=== PATIENT | male | born 1935 | race Caucasian/White ===

== ENCOUNTER → 2017-06-22 10:35 | Emergency (ER) | payer MEDICARE ==
--- NOTE | 2017-06-22 12:02 | ED ---
Back Pain - HPI Summary HPI Summary: Patient presents to the ED with CC of bilateral lower rib pain and mid back pain x 2 months after falling into a hole. He states he landed on his feet, but his back and ribs hurt immediately following the accident. For 2 months, he has been taking tylenol without much relief of pain. Worse at night and while lying flat. He is unable to sleep d/t discomfort. Denies hitting his head, confusion or LOC following accident. Denies blood thinners. PMHx includes HTN and HLD. He takes medications for these but denies other medications. He notes to chronic back pain, but worse since the fall. He points out primary location of the discomfort and the area is with a significant deformity with protrusion. Denies numbness, tingling, bladder or bowel dysfunction. He walks with a cane at baseline. - History of Current Complaint Chief Complaint: EDChestWallPain Stated Complaint: RIB PAIN, Time Seen by Provider: 06/22/17 11:05 Hx Obtained From: Patient Onset/Duration: Sudden Onset Onset/Duration: Started Hours Ago, Traumatic - started 2 months ago s/p fall Timing: Constant Back Pain Location: Is Discrete @ - mid back and bilateral lower ribs - worse on the right Pain Intensity: 6 Character: Aching, Throbbing Aggravating Symptom(s): Movement, Lifting, Bending Alleviating Symptom(s): Rest Associated Signs And Symptoms: Positive: Negative - Risk Factors AAA Risk Factors: Negative TAD Risk Factors: Cauda Equina Risk Factors: Negative Epidural Abscess Risk Factors: Negative - Allergies/Home Medications Allergies/Adverse Reactions: Allergies Allergy/AdvReac Type Severity Reaction Status Date / Time No Known Allergies Allergy Verified 06/22/17 12:53 PMH/Surg Hx/FS Hx/Imm Hx Previously Healthy: Yes Musculoskeletal History: Denies: Hx Rheumatoid Arthritis, Hx Osteoporosis - Immunization History Hx Pertussis Vaccination: No Immunizations Up to Date: Unable to Obtain/Confirm Infectious Disease History: No Infectious Disease History: Denies: Traveled Outside the [place] in Last 30 Days - Social History Occupation: Unemployed Lives: With Family Alcohol Use: None Substance Use Type: Reports: None Hx Tobacco Use: Yes Smoking Status (MU): Former Smoker Review of Systems Constitutional: Negative Negative: Fever, Chills Eyes: Negative Cardiovascular: Negative Respiratory: Negative Gastrointestinal: Negative Negative: Abdominal Pain, Vomiting, Diarrhea, Nausea Genitourinary: Negative Positive: no symptoms reported, see HPI Positive: Arthralgia - bilateral rib pain and mid back pain with deformity Skin: Negative All Other Systems Reviewed And Are Negative: Yes Physical Exam Triage Information Reviewed: Yes Vital Signs On Initial Exam: Initial Vitals Temp Pulse Resp BP Pulse Ox 97.6 F 115 20 141/89 98 06/22/17 10:41 06/22/17 10:41 06/22/17 10:41 06/22/17 10:41 06/22/17 10:41 Vital Signs Reviewed: Yes Appearance: Positive: Well-Appearing, Well-Nourished Skin: Positive: Warm, Skin Color Reflects Adequate Perfusion Head/Face: Positive: Normal Head/Face Inspection Eyes: Positive: EOMI, RAFA, Conjunctiva Clear Neck: Positive: Supple, No Lymphadenopathy Respiratory/Lung Sounds: Positive: Clear to Auscultation, Breath Sounds Present Cardiovascular: Positive: Normal, RRR, Pulses are Symmetrical in both Upper and Lower Extremities Musculoskeletal: Positive: Pain @ - Dorsiflexion, great toe extension and plantar flexion intact. Good strength bilaterally in hips, knees, ankles. No pain on palpation over medial or lateral lower extremity. No pain with knee flexion. Pulses intact bilaterally. No temperature change or pallor noted bilaterally. Walks with a cane at baseline. Neurological: Positive: Speech Normal Psychiatric: Positive: Normal AVPU Assessment: Alert - [place] Coma Scale Coma Scale Total: 15 Diagnostics - Vital Signs Vital Signs Temp Pulse Resp BP Pulse Ox 06/22/17 11:27 98.5 F 100 16 156/82 97 06/22/17 10:41 97.6 F 115 20 141/89 98 - Laboratory Lab Statement: Any lab studies that have been ordered have been reviewed, and results considered in the medical decision making process. Back Pain Course/Dx - Course Course Of Treatment: Patient evaluated for mid back pain and bilateral rib pain 2 months s/p fall. Denies hitting his head or LOC. He is ambulating well with a cane - this is his baseline. NAD and denies any current pain. Pain worse with lying flat. Takes tylenol for relief. Amulating well, good ROM, strength in bilateral lower extremities good. Rotating at the hips with no pain, but slight limited ROM which could be his age and at baseline or d/t fall. IMPRESSION: NO ACUTE CT ABNORMALITIES THE BONY THORAX. LARGE HIATAL HERNIA. IMPRESSION: Scoliosis of the lower thoracic spine. No evidence of fracture. IMPRESSION: ADVANCED MULTILEVEL DEGENERATIVE DISC DISEASE/OSTEOARTHRITIS. SCOLIOSIS. NO ACUTE FINDINGS. Patient is encouraged to follow up with Dr. Piedra this week. It was explained to the patient and it is uncertain why he has been experiencing bilateral rib pain and back pain for 2 months and could likely be d/t fall or chronic changes. He will need to be further followed by his PCP for any changes or worsening symptoms. He is encouraged to take tylenol for relief of pain. - Diagnoses Differential Diagnosis/HQI/PQRI: Positive: Herniated Disc, Osteomyelitis Provider Diagnoses: Rib pain Images - Images Full Body (No Head): 1 - deformity Discharge - Discharge Plan Condition: Stable Disposition: HOME Patient Education Materials: Rib Contusion (ED) Referrals: Tadeo STILL,Arnulfo Rubio [Primary Care Provider] - Additional Instructions: Follow up with you PCP - all to make an appt today Tylenol for any discomfort
--- NOTE | 2017-06-22 12:36 | RAD ---
Indication: Fall, back injury. CT of the thoracic spine was obtained in the axial plane. Sagittal and coronal reconstructed images were obtained. The vertebral bodies appear normal in height. No evidence of compression fracture is noted. There is levoscoliosis centered at T11-T12. No fracture is noted. The transverse processes are grossly unremarkable with no evidence of fracture. The visualized ribs demonstrate no fracture. The spinous processes also demonstrates no fracture. IMPRESSION: Scoliosis of the lower thoracic spine. No evidence of fracture.
--- NOTE | 2017-06-22 12:40 | RAD ---
INDICATION: Fell 2 months ago. Back pain when lying down COMPARISON: None TECHNIQUE: Noncontrast axial source images was performed from the thoracolumbar junction to the sacrum. Coronal and and sagittal reformatted images were generated. FINDINGS: Vertebrae: There is no fracture or acute focal bony lesion. The examination is limited due to advanced osteoarthritic change, osteopenia, scoliotic deformity. Alignment: Moderate S type scoliotic deformity.. Central Canal: There are no significant CT abnormalities of the central canal or foramina. MR imaging is a more sensitive method to evaluate the canal and foramina. Intervertebral disc spaces: Vacuum disc phenomena throughout the lumbar spine. Multilevel facet overgrowth and vertebral spur formation.. Soft tissues: The paravertebral soft tissues are normal. Other: None IMPRESSION: ADVANCED MULTILEVEL DEGENERATIVE DISC DISEASE/OSTEOARTHRITIS. SCOLIOSIS. NO ACUTE FINDINGS
--- NOTE | 2017-06-22 12:52 | RAD ---
INDICATION: Chronic rib pain for 2 months after fall. Worse when lying down COMPARISON: CT thoracic spine same date. TECHNIQUE: Axial source images were obtained from the thoracic inlet to the hemidiaphragms. Coronal and sagittal reconstructed images were acquired. The visualized neck to include the thyroid appear normal. Chest wall: There are no acute abnormalities of the bony thorax or chest wall. The thoracic spine is described in a concurrent separate report. There is no supraclavicular, infraclavicular, or axillary lymphadenopathy. Lungs : There are no pulmonary parenchymal masses or infiltrates. The pulmonary interstitium appears normal. There are no endobronchial lesions. Cardiomediastinal structures: The heart is normal in size. There is no pericardial effusion. There is no evidence of aortic aneurysm or dissection. There are advanced atherosclerotic changes The pulmonary vessels appear normal. There is no mediastinal or hilar adenopathy. The esophagus appears normal. Pleura : There are no pleural-based masses or effusions. Other: There is a large hiatal hernia. IMPRESSION: NO ACUTE CT ABNORMALITIES THE BONY THORAX. LARGE HIATAL HERNIA.
[2017-06-22 13:57] VITALS: BP 153/86
== END | disposition home or self-care (01) ==
LOC: ED 10:35
DX: R07.81 Pleurodynia (principal); I10 Essential (primary) hypertension; E78.5 Hyperlipidemia, unspecified; Z87.891 Personal history of nicotine dependence; M54.9 Dorsalgia, unspecified; M41.9 Scoliosis, unspecified
CPT/HCPCS: 71250; 72128; 72131; 99282

== ENCOUNTER 2018-05-11 06:06 | Day surgery (SDC) | payer MEDICARE ==
--- NOTE | 2018-04-27 09:46 | HP ---
AMENDED REPORT NOW INCLUDES COSIGNER DESIGNATION - ESIGNED BEFORE ADJUSTMENTS CC: Dr. Arnulfo Piedra * PREOPERATIVE HISTORY AND PHYSICAL: DATE OF ADMISSION: 05/11/18 DATE OF PREOPERATIVE HISTORY AND PHYSICAL EXAMINATION: 04/26/18 This patient is scheduled for same-day surgery admission by Dr. Webster on 05/11/18. ATTENDING SURGEON: Dr. Esa Webster * (dictated by Sara Sharp NP). CHIEF COMPLAINT: Left inguinal hernia. HISTORY OF PRESENT ILLNESS: The patient is an 82-year-old male, known to Dr. Webster after undergoing a laparoscopic hiatal hernia repair in July 2017. The patient was known to have a large left inguinal hernia at the time of the hospital admission last year and plan was for followup. The patient describes intermittent left groin pain, but denies any nausea or vomiting or constipation. 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 Dr. Webster has examined the patient and notes a large left inguinal hernia that is mostly reducible and is tender and there is a small right inguinal hernia. Dr. Webster has recommended open left inguinal hernia repair with mesh as a same-day surgery procedure and described the nature of the surgical procedure, the rationale for the procedure, the relevant risks and benefits, and today I reviewed the expected postoperative care and recovery. The patient and his have had a chance to ask questions and stated that they understand the information and are satisfied with the answers given to their questions. He will sign surgical consent on the day of surgery. The patient also reported acid reflux to Dr. Webster and was started on omeprazole with some relief; the patient has an appointment with Dr. 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 PAST MEDICAL HISTORY: Significant for hypertension that is well controlled; prostatic hypertrophy, followed by Dr. Iqbal; osteoarthritis of back and knees; and hyperlipidemia. He is followed by Dr. Arnulfo Piedra for primary care. PAST SURGICAL HISTORY: Diagnostic laparoscopy with repair of paraesophageal hernia, Marielle fundoplication, and placement of bilateral Heimlich valves for pneumothoraces by Dr. Webster in July 2017. MEDICATIONS: 1. Omeprazole 20 mg p.o. daily in the morning. 2. Finasteride 5 mg p.o. daily after dinner. 3. Triamterene/hydrochlorothiazide 37.5/25 mg 1 p.o. daily. 4. Tamsulosin 0.4 mg daily one-half hour after breakfast. 5. Tylenol Arthritis 650 mg typically once a day after dinner. ALLERGIES: No known drug allergies. FAMILY HISTORY: Positive for hypertension and diabetes. No known anesthesia complications, bleeding tendencies, or clotting disorders. SOCIAL HISTORY: He is and his accompanied him to the visit today. He is a nonsmoker and denies the use of alcohol or other substances. 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 REVIEW OF SYSTEMS: Constitutional: No fevers, chills, excessive fatigue, or weight loss. Endocrine: No diabetes or thyroid disease. Hematologic: No easy bruising or bleeding. Respiratory: No dyspnea on exertion. No chronic cough. Cardiovascular: No anginal chest pain or palpitations. Gastrointestinal : No nausea or vomiting. He notes intermittent diarrhea, no GI bleeding. Since he started taking omeprazole, he has had less acid reflux. He does have a good appetite. Genitourinary: He is followed for prostatic hypertrophy by Dr. Iqbal. No dysuria. Musculoskeletal: Osteoarthritis in most joints, but specifically back and knees. Neurologic: No headache or blurred vision or areas of focal weakness. General: No previous anesthesia complications. No bleeding tendencies. No history of deep vein thrombosis or pulmonary embolism. PHYSICAL EXAMINATION GENERAL SURVEY: The patient is an 82-year-old male, slender, well developed, in no acute distress. VITAL SIGNS: Height 62 inches, weight 120 pounds, body mass index 21. Blood pressure 136/84, pulse 80 and regular, respiratory rate 16, temperature 97.6. HEENT: Benign. NECK: Supple. No cervical lymphadenopathy. LUNGS: Breath sounds bilaterally clear and equal. HEART: Regular rate and rhythm. Soft systolic murmur. ABDOMEN: Active bowel sounds. Soft, nondistended, nontender throughout. No obvious masses or organomegaly. INGUINAL: Exam as done by Dr. Webster revealed a large left inguinal hernia that is mostly reducible in the supine position and tender and a small right inguinal hernia. GENITALIA: Exam done recently, not repeated. RECTAL: Exam done recently, not repeated. EXTREMITIES: Warm without edema or skin ulceration. NEUROLOGIC: Alert and oriented x3. Walks with the use of a cane. SKIN: Warm, dry, intact. IMPRESSION: Symptomatic and large left inguinal hernia. PLAN: Same-day surgery admission to Dr. Webster's service on 05/11/18 , for open left inguinal hernia repair with mesh. RUTH SHARP, CHEMICAL COMPOUNDER [id number]/[facility] #: [id number] [facility]IDE HOSPITALHenry
[~2018-05-11 06:06] MED LIST: Buffered Lidocaine 0.9% SYRIN* 5 ML/SYR SYRINGE INTRADERM ONE
[2018-05-11] MEDS ORDERED: ceFAZolin 2 GM PREMIX (*) 2 GM/50 ML BAG IVPB ONE (06:14)
[2018-05-11] MEDS ORDERED: Lidocaine 2% PF * 5 ML VIAL ONE (06:52)
[2018-05-11] MEDS ORDERED: Propofol* 10 MG/ML 20 ML BTL IV PUSH ONE (06:52)
[2018-05-11] MEDS ORDERED: Bupivacaine 0.5% PF 10 ML VIAL INJ ONE (06:58)
[2018-05-11] MEDS ORDERED: Lidocaine 1% MPF wEPI 200,000* 30 ML SDV ONE (06:58)
[2018-05-11] MEDS ORDERED: EPINEPHrine SYR 0.1 MG/ML* (1:10,000) SYRINGE ONE (06:59)
[2018-05-11] MEDS ORDERED: fentaNYL* 50 MCG/ML 2 ML VIAL (100 MCG VIAL) ONE (07:24)
[2018-05-11] MEDS ORDERED: Acetaminophen TAB* 325 MG PO PRN (08:01)
[2018-05-11] MEDS ORDERED: Naloxone* 0.4 MG/ML 1 ML VIAL IV PRN (08:01)
[2018-05-11] MEDS ORDERED: hydrALAZINE IV* 20 MG/ML VIAL ONE (09:29)
[2018-05-11 10:31] VITALS: BP 167/95
--- NOTE | 2018-05-11 11:27 | ECHO ---
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 Left Ventricle: The left ventricular chamber size is normal.False tendon noted in the apex of free wall to septum. [place] relatively hypokinetic at insertion point of the false tendon, incidental finding. Mild concentric left ventricular hypertrophy is observed. Basal interventricular septum shows moderate thickening. Global left ventricular wall motion and contractility are within normal limits. The estimated ejection fraction is 50-55%. The assessment of diastolic function is non-diagnostic. Left Atrium: The left atrium is mild to moderately dilated. Right Ventricle: The right ventricular chamber size and systolic function are within normal limits. The right ventricular global systolic function is hyperdynamic. Right Atrium: The right atrium is mild to moderately dilated. A patent foramen ovale is not demonstrated by color Doppler. There is evidence of an atrial septal aneurysm. Aortic Valve: The aortic valve is trileaflet. The aortic valve leaflets are moderately thickened. There is moderate thickening of the non coronary cusp. There is aortic annular calcification. There is mild aortic regurgitation. There is mild aortic stenosis. The mean gradient of the aortic valve is 8 mmHg. The aortic valve area, by peak velocities, is calculated at 1.6 cm2. Mitral Valve: The mitral valve leaflets are mildly thickened. There is trace to mild mitral regurgitation. There is no evidence of mitral stenosis. Tricuspid Valve: The tricuspid valve leaflets are normal. There is trace to mild tricuspid regurgitation. There is evidence of mild pulmonary hypertension. Pulmonic Valve: The pulmonic valve appears normal. There is a trace pulmonic regurgitation. Pericardium: There is no significant pericardial effusion. Aorta: The aortic root appears normal. The aortic arch is not well visualized. Pulmonary Artery: The main pulmonary artery appears normal. Venous: The inferior vena cava appears normal in size. There is a greater than 50% respiratory change in the inferior vena cava dimension. Conclusions Mild concentric left ventricular hypertrophy is observed. A false tendon noted in the apex of free wall to septum, the apex is relatively hypokinetic at insertion point of the false tendon, incidental finding. Global left ventricular wall motion and contractility are within normal limits. The estimated ejection fraction is 50-55%. The right ventricular global systolic function is hyperdynamic. Bi atrial enlargement. The aortic valve is trileaflet. There is moderate thickening and calcification of the non coronary cusp. There is mild aortic regurgitation. There is mild aortic stenosis: the mean gradient of the aortic valve is 8 mmHg, the aortic valve area is calculated at 1.6 cm2. There is trace to mild mitral regurgitation. There is trace to mild tricuspid regurgitation. Mild elevation in PA presure: 44 mmHg. Compared with prior echo of 08/13/17, LVEF is stable, RV function previously low normal, no evidence of progression of , prior mean gradient was 6 mmHg, [place] previously estimated at 1.2 cm2 (CE)-1.6cm2 (VTI) with a larger diameter measured for LVOT. PA pressure previously 35 mmHg. Measurements Name Value Normal Range RVIDd (AP) 2D 2.9 cm (0.9 - 2.6) RAd ISD 4CH 5.7 cm (3.4 - 4.9) RA (A4C)W 3.9 cm (2.9 - 4.6) IVSd (2D) 1.8 cm (0.6 - 1) LVPWd (2D) 1.1 cm (0.6 - 1) LVIDd (2D) 3.6 cm (3.6 - 5.4) LVIDs (2D) 2.4 cm - LV FS (2D) 33 % (25 - 45) Aortic Annulus 2.5 cm (1.4 - 2.6) Ao root diameter (2D) 3.5 cm (2.1 - 3.5) Ascending Ao 3.2 cm (2.1 - 3.4) LA dimension (AP) 2D 4 cm (2.3 - 3.8) LAd ISD 4CH 4.5 cm (2.9 - 5.3) LA ISD 4CH W 5.1 cm (2.5 - 4.5) Name Value Normal Range LA ESV BP (A/L) index 37 ml/m2 - Name Value Normal Range MV E-wave Vmax 1.1 m/sec - MV deceleration time 87 msec - LV septal e' Vmax 0.15 m/sec - LV lateral e' Vmax 0.1 m/sec - LV E:e' septal ratio 7 ratio - LV E:e' lateral ratio 11 ratio - Name Value Normal Range AV Vmax 2 m/sec - AV VTI 37 cm - AV peak gradient 16 mmHg - AV mean gradient 8 mmHg - LVOT diameter 2.4 cm - LVOT Vmax 0.7 m/sec - LVOT VTI 15 cm - LVOT peak gradient 2 mmHg - LVOT mean gradient 1 mmHg - [place] (continuity Vmax) 1.6 cm2 - [place] (continuity VTI) 1.8 cm2 - AR PHT 565 msec - Name Value Normal Range MV Vmax 1.2 m/sec - MV VTI 15 cm - MV peak gradient 6 mmHg - MV mean gradient 2 mmHg - MV PHT 31 msec - MVA (PHT) 7 cm2 - MVA (continuity VTI) 4.8 cm2 - Name Value Normal Range TR Vmax 3.2 m/sec - TR peak gradient 41 mmHg - RAP 3 mmHg - RVSP 44 mmHg - IVC diameter 1.2 cm - Name Value Normal Range PV Vmax 0.8 m/sec - PV peak gradient 2.6 mmHg -
--- NOTE | 2018-05-11 12:35 | PN ---
Cardiology Progress Note Date of Service: 05/11/18 - CC: hernia discomfort Full note to follow (consult) Pt was scheduled for elective hernia repair. Arrived and noted to be in 2:1 heart block and intermittant bundle branch block. Surgury held. Pt dehies dizziness or syncope. OA knees limits activity. Home meds: Acetaminophen [Tylenol Arthritis] 650 mg PO 1800 05/04/18 [History Confirmed ] Finasteride [Proscar] 5 mg PO 1800 05/04/18 [History Confirmed 05/11/18] Tamsulosin CAP* [Flomax CAP*] 0.4 mg PO QAM 05/04/18 [History Confirmed 05/11/18 ] Triamterene/HCTZ 37.5-25 MG* [Dyazide CAP*] 1 cap PO QAM 05/04/18 [History Confirmed 05/11/18] Omeprazole 20 mg PO EVERY OTHER DAY #0 05/11/18 [Rx Confirmed 05/11/18] 175 /100 Montior: NSR 80's alternating with 2nd HB Type 1 (Wenkebach). Rate related RBBB and intermittent 2:1 HB Clear lungs. Poor dentition. S1S2 1-2/6 systolic murmur RUSB, crisp S2, early to mid peaking, no delay in carotid upstroke. Abdoman soft Extremities warm, no edema Echo today: normal venticular systolic function, mild , full report in computer. 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 No hx dizziness or syncope and mild on echo and exam. OK to procede w/surgury, no indication for a pacemaker at this point although aging conduction system of the heart. is mild and no inducation for a valve replacement at this point in time. The patient's lack of perioperative cardiac complications last fall with more complex hiatal hernia surgury is also a good progostic sign.
--- NOTE | 2018-05-12 03:34 | PN ---
CC: Rodrigo Son NP * PROGRESS NOTE: DATE OF VISIT: 05/11/18 HISTORY: Mr. Roberts is an 82-year-old gentleman who was for planned open left inguinal hernia repair with mesh today for symptomatic left inguinal hernia. He was worked up as an outpatient in my office and seen there for history and physical, presented for same-day surgery, and went to the operating room. The plan was for local MAC. The patient was given sedation; and, while on the anesthesia monitoring, he was noted to randolph down to the heart rate of 40s with apparent left bundle branch block. Additional anesthesiologists were called on the scene. Heart rate recording was performed from anesthesia's leads and placed into the chart. No surgery was performed on this patient. We discussed between the anesthesiology department and Surgery, and had reached out to Cardiology. We were unable to speak to any insulation cutter and former, but the decision was made for this elective case to postpone until patient is evaluated by Cardiology for the possibility of a pacemaker placement. The patient was woken up and transferred to the PACU. [id number]/[facility] #: [id number] MADALYN
--- NOTE | 2018-05-12 11:04 | CONS ---
CC: Dr. Esa Webster; Dr. Arnulfo Piedra CARDIOLOGY CONSULTATION DATE OF CONSULTATION: 05/11/2018. REASON FOR CONSULTATION: Heart block. The patient's chief complaint is inguinal pain. HISTORY OF PRESENT ILLNESS: Mr. Roberts is an 82-year-old gentleman who has a large left inguinal hernia and was admitted to the hospital for elective hernia repair. On arrival, the patient's rhythm was found to be frequently in 2:1 heart block and intermittent bundl e branch block, and I was asked to see the patient. The review of the strips revealed second degree heart block type 1 and intermittent complete right bu ndle branch block. The patient was examined in front of his and daughter. He denies ever having syncopal episodes, dizziness, or near syncope. His activity level has declined recently due to arthritis of the knees, and he has not been as active since he had his hiatal hernia surgery on July 2017. The patient denies any complications following his hernia surgery in July, since he had been home. The patient denies chest pain, pressure, heaviness, orthopnea, PND, and again activity is limited by his knees. 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 PAST SURGICAL HISTORY: Laparoscopic hiatal hernia repair July 2017 complicated by a pneumothorax with Marielle fundoplication. OUTPATIENT MEDICATIONS: 1. Omeprazole 20 mg a day. 2. Finasteride 5 mg a day. 3. Triamterene Hydrochlorothiazide 37.5/25 one tab daily. 4. Tamsulosin 0.4 mg a day. 5. Tylenol prn. ALLERGIES: He has no known medication allergies. FAMILY HISTORY: Positive for hypertension and diabetes. Negative for coronary artery disease or rhy thm disturbances. No history of sudden . SOCIAL HISTORY: The patient is . His is supportive. He has a supportive daughter. He is retired. No history of alcohol or distant tobacco use. REVIEW OF SYSTEMS: Fifteen point review of systems was negative for exposure to Lyme that he is awar e of. No recent fevers, chills, sweats. No recent change in bowel or bladder habits. No recent naldo rrhea or constipation, hematuria or dysuria. All other 14 point review of systems were unremarkable. PHYSICAL EXAM: General: Lean, elderly gentleman lying flat on a gurney in no acute distress. Psych ologically pleasant and cooperative. Neurologically quite hard of hearing, but awake, alert and orie nted to person, place and time. Other than hearing, cranial nerves were grossly intact. Vital Signs : The patient is 5'2", weighs 119 pounds with a BMI of 22. Blood pressure 181/100, pulse was 60, re spiratory rate 19, oxygen saturation 94 to 96 percent on room air. HEENT: Mucus membranes were mois t. Poor dentition. Neck without increased JVP appreciated. No lymphadenopathy or thyromegaly. Ski n: Warm, dry, multiple sebaceous cysts and a lipoma noted, but no rashes or cyanosis. Lungs: Respi rations were clear after coughing with good effort. No wheezes, rales or rhonchi. Coronary: S1, S2 regular with a soft systolic murmur in the right upper sternal border. Early to mid peaking. Berrien S2. No delay with a carotid upstroke. Abdomen: Active bowel sounds, soft, nontender. Hernia not examined. Lower extremities were warm and free of edema. Peripheral pulses were symmetrical. 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 Twelve lead ECG showed normal sinus rhythm, 80 beats a minute, first two beats have 1:1 conduction wi th a first degree AV block. He then demonstrates second degree heart block, type 1, with six seconds of 2:1 heart block and two PVC's in the six second strip. Rhythm strips also reviewed in depth and consistent with second degree heart block type 1. LABORATORY DATA: From August 17 showed: White count 8.5, hemoglobin 7.9, platelets 298; sodium 1 39, potassium 3.5, chloride 105, bicarb 28, BUN 14, creatinine 0.49, magnesium 1.9. IN SUMMARY: Mr. Roberts is an 82-year-old gentleman scheduled for elective left inguinal hernia s urgery and found to be intermittently bradycardic with second degree heart block. As the second degree heart block type 1, at this point we do not have an indication for a pacemaker. I feel he could proceed to surgery today if he has been asymptomatic with this. Additional work-up could include Lyme titers and outpatient monitoring, including an MCOT type event monitor which would picker packer asymptomatic dysrhythmias. For the patient's aortic stenosis, there is no evidence of progression from July and he is not a c andidate for a valve replacement. His knees limit his activity, so I am unable to determine the impa ct of the aortic valve on functional ability, but no evidence that it is clinically significant in hi s everyday life. Precautions should be taken by anesthesia to prevent diastolic congestive heart fail ure or inadvertent hypotension. The patient's hypertension is noted. I do not know his prior levels and if this is new related to an xiety and perioperative issues or if he is chronically this high. I would avoid overaggressive diures is with his aortic stenosis and avoid rate lowering agents for treatment. If surgery is not performed today, the patient should follow-up in our office for additional testing and perioperative evaluation. [id number]/[facility] #: [id number]
== END 2018-05-11 10:32 | disposition home or self-care (01) ==
LOC: OR 06:06
PROVIDERS: ATTEND Surgery
DX: K40.90 Unilateral inguinal hernia, without obstruction or gangrene, not specified as recurrent (principal); Z53.09 Procedure and treatment not carried out because of other contraindication; R00.1 Bradycardia, unspecified; I44.1 Atrioventricular block, second degree; I44.2 Atrioventricular block, complete; I35.0 Nonrheumatic aortic (valve) stenosis; I10 Essential (primary) hypertension; E78.5 Hyperlipidemia, unspecified; I51.7 Cardiomegaly
CPT/HCPCS: 93005; 93306; J0171; J0360; J0690; J2001; J2704; J3010

== ENCOUNTER 2018-05-18 09:37 | Day surgery (SDC) | payer MEDICARE ==
[2018-05-18] MEDS ORDERED: ceFAZolin 2 GM PREMIX (*) 2 GM/50 ML BAG IVPB ONE (10:16)
[2018-05-18] MEDS ORDERED: Lidocaine 1% MPF wEPI 200,000* 30 ML SDV ONE (10:53)
[2018-05-18] MEDS ORDERED: Bupivacaine 0.5% PF 10 ML VIAL INJ ONE (10:53)
[2018-05-18] MEDS ORDERED: Lidocaine 2% PF * 5 ML VIAL ONE (11:11)
[2018-05-18] MEDS ORDERED: Chloroprocaine 2%* 20 ML VIAL ONE (11:11)
--- NOTE | 2018-05-18 11:58 | OP ---
Operative Report - Blank - Operative Report Date of Operation: 05/18/18 Note: Brief Operative Note Preop Dx: Left Inguinal Hernia Postop Dx: same; direct and indirect Procedure: open repair LIH w/ mesh (PHS) Anesthesia: local MAC Surgeon: Eleanor Pop Singer: ALBERT Mena Fluids: 1100 ml EBL: < 30 ml Specimen: hernia sac Drains: none Findings: dictated
[2018-05-18] MEDS ORDERED: fentaNYL* 50 MCG/ML 2 ML VIAL (100 MCG VIAL) ONE ×2 (12:10→12:53)
[2018-05-18] MEDS ORDERED: Esmolol* 10 MG/ML 10 ML (100 mg) ONE (12:13)
[2018-05-18] MEDS ORDERED: Propofol* 10 MG/ML 20 ML BTL IV PUSH ONE (12:20)
[2018-05-18] MEDS ORDERED: Labetalol IV* 5 MG/ML 20 ML VIAL ONE (12:21)
[2018-05-18] MEDS ORDERED: hydrALAZINE IV* 20 MG/ML VIAL ONE (12:32)
[2018-05-18] MEDS ORDERED: Etomidate* 2 MG/ML 10 ML VIAL ONE (12:46)
[2018-05-18] MEDS ORDERED: Ondansetron INJ* 2 MG/ML VIAL IV PRN (13:07)
[2018-05-18] MEDS ORDERED: Acetaminophen TAB* 325 MG PO PRN (13:07)
[2018-05-18] MEDS ORDERED: fentaNYL* 50 MCG/ML 2 ML VIAL (100 MCG VIAL) IV PRN (13:07)
[2018-05-18] MEDS ORDERED: Naloxone* 0.4 MG/ML 1 ML VIAL IV PRN (13:07)
[2018-05-18] MEDS ORDERED: Ketorolac INJ* 30 MG/ML 1 ML VIAL ONE (13:40)
[2018-05-18 16:00] VITALS: BP 147/94
--- NOTE | 2018-05-19 22:28 | OP ---
CC: Dr. Aysha Gonz[facility]les; [facility] DATE OF OPERATION: 05/18/18 - [facility] DATE OF : 37 SURGEON: Esa Webster MD. ENGRAVING OPERATOR: ALBERT Cobos ANESTHESIA: Spinal anesthesia with local. PRE-OP DIAGNOSIS: Left inguinal hernia. POST-OP DIAGNOSIS: Left inguinal hernia. OPERATIVE PROCEDURE: Open left inguinal hernia repair with mesh. ESTIMATED BLOOD LOSS: Minimal. FLUIDS: Minimal crystalloid fluid given. SPECIMEN: Hernia sac. DRAINS: None. DESCRIPTION OF PROCEDURE: The patient was identified in the preoperative area. He was marked and consent signed. He was taken to the operating room. Spinal anesthesia was delivered. Please see separate report for details. He was then placed on the operating table in the supine position. Preoperative antibiotics were given. Sequential devices were placed on bilateral lower extremities. The patient's left groin was clipped of hair and prepped and draped in a standard surgical fashion. A time-out was performed. The large hernia was again identified; this could be mostly reduced, but would not stay reduced. Therefore, we injected 1% lidocaine with epinephrine mixture into the proposed skin incision right overlying the hernia bulge at the left groin. We incised over this and deepened it through a small layer of tissue before we reached the hernia. We incised slowly over this site and we were able to enter into the inguinal canal. Sharp dissection was carried out to free up the base of the hernia sac along with the spermatic structures. We were able to isolate the spermatic structures around Brooklyn drain. We identified the [place] to external oblique. We cleared this off anteriorly as well as posteriorly and similarly did this at the shelving edge of the inguinal ligament. Next, we dissected the hernia contents away from the spermatic structures, hernia sac was identified, this appeared to be an indirect hernia sac, this was cleared up to the base of the internal ring. There was significant amount of adipose tissue within the inguinal canal I was not clear on what this was at first and we dissected this. It did not appear to enter into the abdomen and in the end the nodular fat was inferiorly clamped and cut and passed off. This was not sent for specimen. Now that we had the floor of the inguinal canal and spermatic structures skeletonized, we could see that again there was a moderate sized indirect hernia sac. This was entered and the bowel pushback into the abdomen. We then ligated the sac with 2-0 Polysorb suture. The floor of the canal was very weak and I made the decision to use a Prolene hernia system. We made flaps in the preperitoneal plane superiorly and medially as well as inferiorly clearing off the area around the Orion's ligament. We then placed the mesh in the appropriate preperitoneal plane and allowed it to unfurl, the outer leaflet was then sutured to the pubic tubercle as well as inferiorly along the shelving edge of the inguinal ligament. Superior sutures were also utilized, these were all 2-0 Vicryl sutures. A slit was made at the inferior aspect of the outer leaflet to recreate the internal ring. This was then placed under the aponeurosis external oblique laterally, covering the full defect. The aponeurosis was then reapproximated with a running 2-0 Polysorb suture after hemostasis was achieved. We then closed the incision in a routine fashion with 3-0 Vicryl sutures followed by 4-0 Monocryl subcuticular suture. Steri-Strips and sterile dressings were applied. The patient tolerated the procedure well and was transferred to the PACU in stable condition. [id number]/[facility] #: [id number] MADALYN
== END 2018-05-18 16:06 | disposition home or self-care (01) ==
LOC: OR 09:37
PROVIDERS: ATTEND Surgery
DX: K40.90 Unilateral inguinal hernia, without obstruction or gangrene, not specified as recurrent (principal); I10 Essential (primary) hypertension; N40.0 Benign prostatic hyperplasia without lower urinary tract symptoms; E78.5 Hyperlipidemia, unspecified; I35.0 Nonrheumatic aortic (valve) stenosis; R00.1 Bradycardia, unspecified; M19.90 Unspecified osteoarthritis, unspecified site
CPT/HCPCS: 88302; C1781; J0360; J0690; J1885; J2001; J2400; J2704; J3010

== ENCOUNTER 2018-07-17 03:22 | Inpatient (IN) | payer MEDICARE ==
[2018-07-17] MEDS ORDERED: NS 0.9% 1000 ML* 1,000 ML IV ONE ×3 (03:48→08:21)
--- NOTE | 2018-07-17 03:49 | ED ---
Abdominal Pain/Male - HPI Summary HPI Summary: The pt is an 82 y/o male presenting to [facility] c/o of diffuse abdominal pain since yesterday afternoon.He too Tums to no relief. He notes flatulence but denies nausea, diarrhea, vomiting and CP. The pain is rated 8/10 in intensity. - History of Current Complaint Chief Complaint: EDChestPainROMI Stated Complaint: CHEST PAIN Time Seen by Provider: 07/17/18 03:38 Hx Obtained From: Patient, Family/Rehab/Pre Vocational Counselor - Onset/Duration: Lasting Days - 1 day Pain Intensity: 8 - Allergies/Home Medications Allergies/Adverse Reactions: Allergies Allergy/AdvReac Type Severity Reaction Status Date / Time No Known Allergies Allergy Verified 07/17/18 10:26 PMH/Surg Hx/FS Hx/Imm Hx Previously Healthy: No Endocrine/Hematology History: Reports: Hx Diabetes Cardiovascular History: Reports: Hx Coronary Artery Disease, Hx Hypercholesterolemia, Hx Hypertension, Hx Rheumatic Fever Respiratory History: Reports: Other Respiratory Problems/Disorders - HEIMLICH VALVES FOR PNEUMOTHORACES 08/03 POST [facility] SURGERY GI History: Reports: Hx Gastroesophageal Reflux Disease - on meds pt. states controlled with meds hob up and eating time, Hx Hiatal Hernia - repair 07/2017 dr. stoll inpt. for 1 week post op, Other GI Disorders - diarrhea recently r/t hernia? hernia on left side History: Reports: Other Problems/Disorders - ENLARGED PROSTATE Denies: Hx Renal Disease Musculoskeletal History: Reports: Hx Arthritis Denies: Hx Rheumatoid Arthritis, Hx Osteoporosis Sensory History: Reports: Hx Contacts or Glasses Denies: Hx Hearing Aid Opthamlomology History: Reports: Hx Contacts or Glasses - Surgical History Surgery Procedure, Year, and Place: hiatal hernia repair 07/2017 [facility] [place], [facility] FUNDOPLICATION AND PLACEMENT OF HEIMLICH VALVES FOR PNEUMOTHORACES Hx Anesthesia Reactions: No Infectious Disease History: No Infectious Disease History: Denies: Traveled Outside the [place] in Last 30 Days - Family History Known Family History: Positive: None - None provided - Social History Occupation: Retired Alcohol Use: None Substance Use Type: Reports: None Hx Tobacco Use: Yes Smoking Status (MU): Former Smoker Review of Systems Negative: Fever Gastrointestinal: Other - Positive: Flatulance Positive: Abdominal Pain - Diffuse All Other Systems Reviewed And Are Negative: Yes Physical Exam - Summary Physical Exam Summary: Appearance: Well appearing, no pain distress Skin: warm, dry, reflects adequate perfusion Head/face: normal Eyes: EOMI, RAFA ENT: normal Neck: supple, non-tender Respiratory: CTA, breath sounds present Cardiovascular: RRR, pulses symmetrical Abdomen: Diffuse tenderness of the abd, soft Bowel sounds : present Musculoskeletal: normal, strength/ROM intact Neuro: normal, sensory motor intact, A&Ox3 Vital Signs On Initial Exam: Initial Vitals Temp Pulse Resp BP Pulse Ox 97.3 F 57 16 96 07/17/18 03:23 07/17/18 03:23 07/17/18 03:23 07/17/18 03:23 07/17/18 03:23 Diagnostics - Vital Signs Vital Signs Temp Pulse Resp BP Pulse Ox 07/17/18 03:23 97.3 F 57 96 - Laboratory Result Diagrams: 07/17/18 04:12 07/17/18 04:12 Lab Statement: Any lab studies that have been ordered have been reviewed, and results considered in the medical decision making process. - EKG 03:31 Cardiac Rate: NL - 67 bpm EKG Rhythm: Sinus Rhythm EKG Interpretation: RBBB Abdominal Pain Fem Course/Dx - Course Course Of Treatment: An 82 year-old M presents to the ED with a CC of diffuse abdominal pain rated 8/10 in intensity since yesterday afternoon. He too Tums to no relief. He notes flatulence but denies nausea, diarrhea, vomiting and CP. A physical exam revealed a diffusely tender abd. An EKG reveals RBBB. In the ED course, the pt was given Iodixanol 68 ml IV, N.s 0.9% 1000ml IV twice, Morphine 4mg IV twice and Ondansetron 4mg IV which improved the symptoms. Patient gotsigned out to Dr. Aren Coppola at 07:00 due to pending imaging results.Allergies noted. - Diagnoses Differential Diagnosis/HQI/PQRI: Appendicitis, Diverticulitis, Pancreatitis, Renal Colic, Ureteral Stone Provider Diagnoses: Small bowel obstruction, Ischemic bowel syndrome - Critical Care Time Critical Care Time: 30-74 min Discharge - Sign-Out/Discharge Documenting (check all that apply): Sign-Out Patient Signing out patient TO: Aren Coppola - 07:00- pending imaging results - Discharge Plan Condition: Stable Disposition: ADMITTED TO [facility] - Billing Disposition and Condition Condition: STABLE Disposition: Admitted to [facility] - Attestation Statements Document Initiated by Luis Manuel: Yes Documenting Scribe: Daniela Fu Provider For Whom Luis Manuel is Documenting (Include Credential): Dr. Emmanuel Singh MD Scribe Attestation: Daniela Drake, scribed for Dr. Emmanuel Singh MD on 07/17/18 at 2242. Scribe Documentation Reviewed: Yes Provider Attestation: The documentation as recorded by the Daniela owens accurately reflects the service I personally performed and the decisions made by me, Dr. Emmanuel Singh MD
[2018-07-17 04:19] LABS: ABS Basophils 0 10^3/ul (0-0.2); ABS Eosinophils 0.1 10^3/ul (0-0.6); ABS Lymphocytes 1.1 10^3/ul (1.0-4.8); ABS Monocytes 0.4 10^3/ul (0-0.8); ABS Neutrophils 5.8 10^3/ul (1.5-7.7); ABS Nucleated RBC 0 10^3/ul; Eosinophil % 0.7 % (0-6); Hematocrit 41 % (42-52); Hemoglobin 14.1 g/dl (14.0-18.0); Lymphocyte % 15.3 % (25-47); Mean Corpuscular HGB Conc 34 g/dl (31-36); Mean Corpuscular Hemoglobin 31 pg (27-31); Mean Corpuscular Volume 89 fL (80-94); Mean Platelet Volume 7.5 um3 (7.4-10.4); Nucleated Red Blood Cells % 0; Platelet Count 319 10^3/ul (150-450); Red Blood Count 4.61 10^6/ul (4.00-5.40); Red Cell Distribution Width 15 % (10.5-15); White Blood Count 7.5 10^3/ul (3.5-10.8)
[2018-07-17] MEDS ORDERED: Ondansetron INJ* 2 MG/ML VIAL IV ONE (04:31)
[2018-07-17] MEDS ORDERED: Ondansetron INJ* 2 MG/ML VIAL ONE ×2 (04:33→14:51)
[2018-07-17 04:38] LABS: EGFR Non-African American 69.3 (>60)
[2018-07-17 04:52] LABS: INR 0.89 (0.77-1.02)
[2018-07-17] MEDS ORDERED: Morphine VIAL* 10 MG/ML 1 ML VIAL IV ONE (05:15)
[2018-07-17] MEDS ORDERED: Morphine INJ* 4 MG/ML 1 ML SYRINGE (NEW SYRINGE VERSION) ONE (05:17)
[2018-07-17] MEDS ORDERED: Morphine INJ* 4 MG/ML 1 ML SYRINGE (NEW SYRINGE VERSION) IV ONE (05:21)
[2018-07-17 06:08] LABS: Urine Appearance Clear; Urine Blood 1+ (Negative); Urine Color Straw; Urine Ketones 1+ (Negative); Urine Protein Negative (Negative); Urine Red Blood Cell Trace(0-2/hpf) (Absent); Urine Specific Gravity 1.012 (1.010-1.030); Urine Urobilinogen Negative (Negative); Urine White Blood Cell Absent (Absent)
[2018-07-17] MEDS ORDERED: Iodixanol* (CONTRAST) 320 MG/ML 100 ML SDV IV ONE (06:11)
--- NOTE | 2018-07-17 07:25 | RAD ---
EXAM: CT Abdomen and Pelvis With Intravenous Contrast CLINICAL HISTORY: 82 years old, male; Pain; Abdominal pain; Localized; Left lower quadrant (llq); Additional info: Llq tend/diverticulitis TECHNIQUE: Axial computed tomography images of the abdomen and pelvis with intravenous contrast. All CT scans at this facility use at least one of these dose optimization techniques: automated exposure control; mA and/or kV adjustment per patient size (includes targeted exams where dose is matched to clinical indication); or iterative reconstruction. Coronal and sagittal reformatted images were created and reviewed. CONTRAST: 68 mL of VISI administered intravenously. COMPARISON: XA UGI UPPER GI 03/15/2018 9:37 AM FINDINGS: Lung bases: Linear atelectasis and/or fibrosis is seen in the lingula and lower lobes bilaterally. Mediastinum: There is a small hiatus hernia. Distal esophagus is distended with contrast. ABDOMEN: Liver: Unremarkable. No mass. Gallbladder and bile ducts: Unremarkable. No calcified stones. No ductal dilation. Pancreas: Unremarkable. No mass. No ductal dilation. Spleen: Unremarkable. No splenomegaly. Adrenals: Unremarkable. No mass. Kidneys and ureters: Left renal cyst is present measuring 2.5 x 3.7 cm. No hydronephrosis. Stomach and bowel: There are multiple dilated loops of small bowel. There is thickening of the wall of a segment of small bowel in the left mid abdomen. Transition point is seen in the mid abdomen on axial images 36-40, coronal images 32-35, and sagittal images 50-52. Colonic diverticula are demonstrated but there is no evidence for acute diverticulitis. PELVIS: Appendix: The appendix is not clearly delineated. Bladder: The bladder is distended. Reproductive: The prostate gland is enlarged with prostatic calcifications. ABDOMEN and PELVIS: Intraperitoneal space: Small amount of ascites is present. No free air. Bones/joints: There is dextroscoliosis of the lumbar spine. Multilevel degenerative disc disease is noted. No acute fracture. No dislocation. Soft tissues: There is a small fat containing left inguinal hernia. There is a small fat-containing left mid to lower ventral hernia. Vasculature: Arteriosclerotic changes are identified. No abdominal aortic aneurysm. Lymph nodes: Unremarkable. No enlarged lymph nodes. IMPRESSION: Loop of abnormal small bowel in the left mid abdomen with marked thickening of the wall consistent with ischemia, edema, or enteritis. Small bowel obstruction with transition point in the mid abdomen. Ascites. Colonic diverticulosis. Enlarged prostate gland with prostatic calcifications. Small hiatus hernia. Distention of the distal esophagus with contrast could be secondary to gastroesophageal reflux or presbyesophagus. Linear atelectasis and/or fibrosis in the lingula and lower lobes bilaterally. Left renal cyst. Dextroscoliosis of the lumbar spine with marked degenerative change.
--- NOTE | 2018-07-17 07:37 | RAD ---
HISTORY: cp COMPARISONS: August 19, 2017 VIEWS: 1: frontal AP view of the chest at 4:19 AM FINDINGS: LINES AND TUBES: None. CARDIOMEDIASTINAL SILHOUETTE: The cardiomediastinal silhouette is normal for portable technique. PLEURA: The costophrenic angles are sharp. No pleural abnormalities are noted. LUNG PARENCHYMA: There is hyperinflation. ABDOMEN: The upper abdomen is clear. There is no subphrenic gas. BONES AND SOFT TISSUES: Degenerative changes are noted. IMPRESSION: COPD. NO ACTIVE CARDIOPULMONARY DISEASE. R1
--- NOTE | 2018-07-17 07:46 | ED ---
Progress - Progress Note Progress Note: HPI This patient is an 82 year old M [facility] accompanied by with a chief complaint of L-sided abd pain radiating to the right side that began mid- day on 07/16/2018. The patient rates the pain 8/10 in severity. Symptoms aggravated by nothing. Symptoms alleviated by nothing. Pt reports that his most recent BM was this morning. Pt states the last time he ate was yesterday at 1730. PE VITAL SIGNS: Reviewed. GENERAL: Patient is a well-developed and nourished male who is lying comfortable in the stretcher. Patient is not in any acute respiratory distress. HEAD AND FACE: Normocephalic and atraumatic. EYES: PERRLA, EOMI x 2, No injected conjunctiva. EARS: Hearing grossly intact. Ear canals and tympanic membranes are WNL. MOUTH: Oropharynx within normal limits. NECK: Supple, trachea is midline, no adenopathy, no JVD. CHEST: Symmetric, no tenderness at palpation LUNGS: Clear to auscultation bilaterally. No wheezing or crackles. CVS: RRR, S1 and S2 present, no murmurs or gallops appreciated. ABDOMEN: Soft. No signs of distention. Positive bowel sounds. No rebound no guarding, and no masses palpated. No abdominal bruit or pulsations. L-sided abd tenderness in LUQ and LLQ. Ventral tenderness. EXTREMITIES: FROM in all major joints, no edema, no cyanosis or clubbing. NEURO: Alert and oriented x 3. No acute neurological deficits. Speech is normal. SKIN: Dry and warm Diag CT CT abdomen and pelvis reveals, per radiologist, loop of abnormal small bowel in the left mid abdomen with marked thickening of the wall consistent with ischemia , edema, or enteritis. Small bowel obstruction with transition point in the mid abdomen. Ascites. Colonic diverticulosis. Enlarged prostate gland with prostatic calcifications. Small hiatus hernia. Distention of the distal esophagus with contrast could be secondary to gastroesophageal reflux or presbyesophagus. Linear atelectasis and/or fibrosis in the lingula and lower lobes bilaterally. Left renal cyst. Dextroscoliosis of the lumbar spine with marked degenerative change. ED physician has reviewed this radiology report. Course/Dx - Course Course Of Treatment: CT abdomen and pelvis reveals, per radiologist, loop of abnormal small bowel in the left mid abdomen with marked thickening of the wall consistent with ischemia, edema, or enteritis. Small bowel obstruction with transition point in the mid abdomen. Ascites. Colonic diverticulosis. Enlarged prostate gland with prostatic calcifications. Small hiatus hernia. Distention of the distal esophagus with contrast could be secondary to gastroesophageal reflux or presbyesophagus. Linear atelectasis and/or fibrosis in the lingula and lower lobes bilaterally. Left renal cyst. Dextroscoliosis of the lumbar spine with marked degenerative change.Patient with an NG tube and alexandre catheter. I discussed the case with Dr. Awad (surgery) who came and consulted for the patient. After his assessment, he discussed the case with Dr. Grant who accepted the patient for admission. He will be the consult for the patient. The patient is hemodynamically stable and A&Ox3. - Diagnoses Provider Diagnoses: Small bowel obstruction, Ischemic bowel syndrome - Provider Notifications Discussed Care Of Patient With: Jair Awad Time Discussed With Above Provider: 07:41 Instructed by Provider To: Other - Consult with Dr. Awad (surgery) at 0741. He agrees to see the patient in the ED. Consult with Dr. Grant (hospitalist) at 0820. She agrees to admit pt for further evaluation. Discharge - Sign-Out/Discharge Documenting (check all that apply): Patient Departure - Admit to [facility], Receiving Sign-Out Receiving patient FROM: Emmanuel Singh - Upon shift change pending CT - Discharge Plan Condition: Stable Disposition: ADMITTED TO [facility] Referrals: Rodrigo Son, COIL INSPECTOR [Primary Care Provider] - 3 Days - Attestation Statements Document Initiated by Scribe: Yes Documenting Scribe: Kasia Grove Provider For Whom Scribe is Documenting (Include Credential): Aren Coppola MD Scribe Attestation: I, Kasia Grove, scribed for Aren Coppola MD on 07/17/18 at 0919.
--- NOTE | 2018-07-17 09:07 | RAD ---
HISTORY: eval placement of NG tube COMPARISONS: July 17, 2018 at 4:17 AM VIEWS: 1: frontal AP view of the chest at 8:56 AM FINDINGS: LINES AND TUBES: Gastric tube is noted redundant within the esophagus, with the tip at the level of the midesophagus. CARDIOMEDIASTINAL SILHOUETTE: The cardiomediastinal silhouette is normal for portable technique. PLEURA: The costophrenic angles are sharp. No pleural abnormalities are noted. LUNG PARENCHYMA: There is hyperinflation. ABDOMEN: The upper abdomen is clear. There is no subphrenic gas. BONES AND SOFT TISSUES: There is a scoliotic curvature of the spine. Degenerative changes are noted IMPRESSION: THE GASTRIC TUBE IS NOTED REDUNDANT WITHIN THE ESOPHAGUS. HYPERINFLATION. PRELIMINARY FINDINGS WERE DISCUSSED WITH DR. LUNSFORD AT APPROXIMATELY 9:04 AM ON 2017 .
[2018-07-17] MEDS ORDERED: Ondansetron INJ* 2 MG/ML VIAL IV PRN (09:48)
[2018-07-17] MEDS ORDERED: Morphine INJ* 4 MG/ML 1 ML SYRINGE (NEW SYRINGE VERSION) IV PRN (09:48)
[2018-07-17] MEDS ORDERED: NS 0.9% 1000 ML* 1,000 ML IV SCH (10:00)
--- NOTE | 2018-07-17 10:08 | RAD ---
HISTORY: eval NG tube placement COMPARISONS: July 17, 2018 at 8:52 AM VIEWS: 1: frontal AP view of the chest at 9:40 AM FINDINGS: LINES AND TUBES: A nasogastric tube is noted with redundant within the esophagus. CARDIOMEDIASTINAL SILHOUETTE: The cardiomediastinal silhouette is normal for portable technique. PLEURA: The costophrenic angles are sharp. No pleural abnormalities are noted. LUNG PARENCHYMA: There is hyperinflation. ABDOMEN: The upper abdomen is clear. There is no subphrenic gas. BONES AND SOFT TISSUES: No bone or soft tissue abnormalities are noted. IMPRESSION: 1. THE NASOGASTRIC TUBE IS NOTED TO BE REDUNDANT WITHIN THE ESOPHAGUS. 2. HYPERINFLATION. PRELIMINARY FINDINGS WERE DISCUSSED WITH DR. LUNSFORD AT APPROXIMATELY 10:01 AM ON 2017 .
[2018-07-17] MEDS ORDERED: hydrALAZINE IV* 20 MG/ML VIAL IV SLOW PU PRN (10:20)
[2018-07-17] MEDS: Pantoprazole IV* 40 MG IV SCH (11:36)
[2018-07-17] MEDS ORDERED: Midazolam* 1 MG/ML 2 ML VIAL (2 MG) ONE (12:49)
[2018-07-17] MEDS ORDERED: Atracurium* 10 MG/ML 10 ML VIAL ONE (12:49)
[2018-07-17] MEDS ORDERED: fentaNYL* 50 MCG/ML 2 ML VIAL (100 MCG VIAL) ONE (12:49)
[2018-07-17] MEDS ORDERED: KETAMINE HCL* 50 MG/ML 10 ML VIAL ONE (12:49)
--- NOTE | 2018-07-17 12:49 | CONSULT ---
Consult Consult: CC: abdominal pain HPI: This is a pleasant 82 yo M with a h/o incarcerated PEH repaired in 07/2017 and open LIHR in 05/2018, HTN, mild who presented to the [facility] ED with abdominal pain since yesterday afternoon. This was associated with nausea but no vomiting (s/p Marielle). His pain is primarily on the left side. He tried TUMS with no relief. He has no F/C. He has no diarrhea/constipation. He completed CT imaging in the ED and was noted to have SBO with thickened SB loop with free fluid. WBCs have been normal but Lactate was elevated. Dr. Coppola requested surgical evaluation. Attempts to place NGT have been unsuccessful. PMH: HTN, mild , BPH, OA, hyperlipidemia. 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 FH: non-contributory ROS: as above. He has had Cardiology evaluation and echo in April due to concerns about BBB and bradycardia prior to his elective hernia surgery. PE: Vital Signs Temp 96.9 F 07/17/18 11:12 Pulse 69 07/17/18 11:14 Resp 18 07/17/18 11:14 BP 152/82 07/17/18 11:14 Pulse Ox 96 07/17/18 11:14 Gen: NAD HEENT: NCAT; EOMI; sclera anicteric; no kaylin/rhinorrhea. Lungs: CTA B Heart: reg s1s2 Abd: scars from prior laparoscopy and L groin scar; distended; scant BS; tenderness in L>R abdomen diffusely to light palpation. Ext: warm Intake & Output 07/16/18 07/17/18 07/17/18 18:59 06:59 18:59 Intake Total 1000 1000 Balance 1000 1000 Weight 119 lb Intake: IV Fluids 1000 1000 Laboratory Results - last 24 hr 07/17/18 07/17/18 07/17/18 04:12 04:12 04:12 WBC 7.5 RBC 4.61 Hgb 14.1 Hct 41 L MCV 89 MCH 31 MCHC 34 RDW 15 Plt Count 319 MPV 7.5 Neut % (Auto) 77.9 Lymph % (Auto) 15.3 L Henderson % (Auto) 5.7 Eos % (Auto) 0.7 Baso % (Auto) 0.4 Absolute Neuts (auto) 5.8 Absolute Lymphs (auto) 1.1 Absolute Monos (auto) 0.4 Absolute Eos (auto) 0.1 Absolute Basos (auto) 0 Absolute Nucleated RBC 0 Nucleated RBC % 0 INR (Anticoag Therapy) APTT Sodium 135 Potassium 3.8 Chloride 98 L Carbon Dioxide 26 Anion Gap 11 BUN 25 H Creatinine 1.03 Est GFR ( Amer) 83.9 Est GFR (Non-Af Amer) 69.3 BUN/Creatinine Ratio 24.3 H Glucose 200 H Lactic Acid 2.2 H* Calcium 10.1 Total Bilirubin 0.50 AST 13 ALT 6 L Alkaline Phosphatase 40 Troponin I 0.00 C-Reactive Protein < 1.00 Total Protein 6.9 Albumin 4.2 Globulin 2.7 Albumin/Globulin Ratio 1.6 Lipase 26 Urine Color Urine Appearance Urine pH Ur Specific Ahmeek Urine Protein Urine Ketones Urine Blood Urine Nitrate Urine Bilirubin Urine Urobilinogen Ur Leukocyte Esterase Urine WBC (Auto) Urine RBC (Auto) Urine Bacteria Urine Glucose 07/17/18 07/17/18 07/17/18 04:12 05:50 09:52 WBC RBC Hgb Hct MCV MCH MCHC RDW Plt Count MPV Neut % (Auto) Lymph % (Auto) Henderson % (Auto) Eos % (Auto) Baso % (Auto) Absolute Neuts (auto) Absolute Lymphs (auto) Absolute Monos (auto) Absolute Eos (auto) Absolute Basos (auto) Absolute Nucleated RBC Nucleated RBC % INR (Anticoag Therapy) 0.89 APTT 24.0 L Sodium Potassium Chloride Carbon Dioxide Anion Gap BUN Creatinine Est GFR ( Amer) Est GFR (Non-Af Amer) BUN/Creatinine Ratio Glucose Lactic Acid 2.2 H* Calcium Total Bilirubin AST ALT Alkaline Phosphatase Troponin I C-Reactive Protein Total Protein Albumin Globulin Albumin/Globulin Ratio Lipase Urine Color Straw Urine Appearance Clear Urine pH 5.0 Ur Specific Ahmeek 1.012 Urine Protein Negative Urine Ketones 1+ A Urine Blood 1+ A Urine Nitrate Negative Urine Bilirubin Negative Urine Urobilinogen Negative Ur Leukocyte Esterase Negative Urine WBC (Auto) Absent Urine RBC (Auto) Trace(0-2/hpf) Urine Bacteria Absent Urine Glucose 1+(50 mg/dl) A CT abd/Pel: SBO with transition in midabdomen with dilated, thickened SB loop; ascites; small HH. IMP: 82 yo M with SBO and thickened SB loop that is concerning for ischemic changes. Plan/Recommendation: Findings d/w patient, , daughter at bedside. He needs exploratory laparoscopy/laparotomy. He may require SB resection. Findings at surgery will dictate the procedure. The nature of the procedure, indications, risks, benefits, alternatives and option of no treatment were discussed. Risks explained including, not limited to: bleeding, infection, pain, scarring, blood clots, pneumonia, and risks of GETA. All questions were answered. He states understanding and agrees to proceed.
[2018-07-17] MEDS ORDERED: DiMENhydriNATE IV* 50 MG/ML VIAL IV PUSH PRN (13:03)
[2018-07-17] MEDS ORDERED: Morphine INJ* 2 MG/ML 1 ML SYRINGE (TWO MG - NEW SYRINGE VERSION) IV PRN (13:03)
[2018-07-17] MEDS ORDERED: fentaNYL* 50 MCG/ML 2 ML VIAL (100 MCG VIAL) IV PRN (13:03)
[2018-07-17] MEDS ORDERED: Naloxone* 0.4 MG/ML 1 ML VIAL IV PRN (13:03)
[2018-07-17] MEDS ORDERED: PROCHLORPERAZINE INJ 5 MG/ML 2 ML VIAL IV PRN (13:03)
[2018-07-17] MEDS ORDERED: Bupivacaine 0.25% EPI 200,000* 30 ML SDV ONE (13:12)
[2018-07-17] MEDS ORDERED: ceFOXitin 2 GM IVPREMIX* 2 GM/50 ML BAG IVPB ONE (13:30)
[2018-07-17] MEDS ORDERED: Dexamethasone IV* 4 MG/ML 1 ML (4 MG) ONE (14:51)
[2018-07-17] MEDS ORDERED: Norepinephrine VIAL* 1 MG/ML 4 ML VIAL ONE (14:51)
[2018-07-17] MEDS ORDERED: Neostigmine Methylsulfate* 1 MG/ML 10 ML VIAL (1 mg/ml) ONE (14:51)
[2018-07-17] MEDS ORDERED: Phenylephrine INJ* 10 MG/ML 1 ML VIAL (10 MG) ONE (14:51)
[2018-07-17] MEDS ORDERED: Propofol* 10 MG/ML 20 ML BTL IV PUSH ONE (14:51)
[2018-07-17] MEDS ORDERED: EPHEDrine (Pressors)* 50 MG/ML VIAL ONE (14:51)
[2018-07-17] MEDS ORDERED: Glycopyrrolate IV* 0.2 MG/ML 1 ML VIAL ONE (14:51)
[2018-07-17] MEDS ORDERED: Lidocaine 2% PF * 5 ML VIAL ONE (14:51)
[2018-07-17] MEDS ORDERED: Morphine VIAL* 10 MG/ML 1 ML VIAL ONE (14:52)
[2018-07-17] MEDS ORDERED: Succinylcholine* 20 MG/ML 10 ML VIAL ONE (15:29)
--- NOTE | 2018-07-17 16:22 | HP ---
CC: Rodrigo Son NP * HISTORY AND PHYSICAL: DATE OF ADMISSION: 07/17/18 PRIMARY CARE PROVIDER: Rodrigo Son NP. CHIEF COMPLAINT: Abdominal pain. HISTORY OF PRESENT ILLNESS: Mr. Roberts is an 82-year-old male who has a history of hypertension, hyperlipidemia, BPH, and mild aortic stenosis, who presented to the emergency room with complaints of abdominal pain. The patient himself is fairly stoic and does not answer many questions. His provides bulk of the history. She states that yesterday afternoon at approximately 2 p.m., he began to feel unwell. He told her that he felt unwell and thought maybe he needed some Tums for gas pain. Reportedly, he had a normal lunch prior to this and he had a normal dinner after this; however, by 3 o'clock in the morning, on the day of admission, the patient was continuing to feel unwell , having pain in his upper abdomen and left lower chest wall. At that point, his asked him if he wanted to go to the emergency room and he said, "I think so." The patient's stated that him admitting that he finally wanted to go to the emergency room was a significant sign that he was in tremendous amount of pain. The patient does admit feeling nauseous, but he has not been able to vomit at all. He states that his last bowel movement was on the morning prior to admission and it was reportedly normal. He has been burping quite a bit; however, he has not passed any flatus. The patient states that he received some pain medications in the emergency room, which provided some pain relief, though he continues to have discomfort. PAST MEDICAL HISTORY: 1. Hypertension. 2. BPH. 3. OA. 4. Hyperlipidemia. 5. Mild aortic stenosis. PAST SURGICAL HISTORY: 1. Left inguinal hernia repair. 2. Paraesophageal hernia repair with Marielle fundoplication and bilateral Heimlich valves for bilateral pneumothoraces, July 2017. MEDICATIONS: 1. Omeprazole 20 mg p.o. every other day. 2. Finasteride 5 mg p.o. daily. 3. Tylenol 650 mg p.o. daily at 1800. 4. Triamterene/hydrochlorothiazide 37.5/25 one tab p.o. daily. 5. Flomax 0.4 mg p.o. daily. ALLERGIES: None. FAMILY HISTORY: Mom in her 80s; she had Alzheimer's. Dad is ; his health history is not completely known. SOCIAL HISTORY: The patient is a former smoker; he quit approximately 50 years ago. He does not drink alcohol. 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 He is . He has 2 children. He indicates that his , Stephanie, would be his healthcare proxy. REVIEW OF SYSTEMS: The patient denies any fevers, chills, or anorexia. No chest pain. No edema. No cough, no shortness of breath. He does admit to the nausea as above, as well as abdominal pain as above. No hematuria. He does admit to mild dysuria from [id number]. No focal weakness or sensory loss. No sudden changes in vision. No dysphagia. No joint pains or muscle pains out of the ordinary. No rashes. No anxiety or depression. PHYSICAL EXAMINATION GENERAL: The patient is a well-developed thin elderly male seen sitting up in the stretcher, in no acute distress. VITAL SIGNS: Blood pressure 175/87, pulse 66, respirations 22, temp 97.3, O2 sat 96% on room air. HEENT: Pupils are equal and round. Extraocular muscles are intact. Oropharynx is clear. Oral mucosa is moist. Dentition is in poor repair. There is no submandibular, cervical, or supraclavicular adenopathy. Thyroid is not enlarged. No thyroid nodules are noted. PULMONARY: Lungs are clear to auscultation bilaterally. CARDIAC: Normal S1, S2. Regular rate and rhythm. I do not appreciate any murmurs. There is no lower extremity edema. ABDOMEN: Bowel sounds present. Abdomen is soft, nondistended. Mildly tender to palpation. MUSCULOSKELETAL: There is no cyanosis or clubbing in the digits. There is full active range of motion of all 4 extremities. NEURO: Cranial nerves II through XII are grossly intact. Sensation is intact to light touch throughout. Strength is 5/5 and symmetric both upper and lower extremities bilaterally. SKIN: Warm and dry. There are no rashes. PSYCH: The patient is alert. He is oriented x3. Affect appears appropriate. DIAGNOSTIC STUDIES/LAB DATA: WBC 7.5, hemoglobin 14.1, hematocrit 41, platelets 319. INR 0.89. Sodium 135, potassium 3.8, chloride 98, CO2 of 26, BUN 25, creatinine 1.03, glucose 200, lactic acid 2.2, calcium 10.1. Bilirubin 0.5, AST 13, ALT 6, alk phos 40. Troponin 0. CRP less than 1, albumin 4.2, lipase 26. Urinalysis reveals specific gravity of 1.012, 1+ ketones, 1+ blood, absent bacteria. Chest x-ray reveals evidence of COPD and no active cardiopulmonary disease. Abdomen and pelvis CT reveals loops of abnormal small bowel on the left mid abdomen with marked thickening of the wall consistent with ischemia, edema, or enteritis. Small bowel obstruction with transition point in the mid abdomen. Ascites is noted. An enlarged prostate gland with prostatic calcification is noted. There is a small hiatal hernia. Distention of the distal esophagus with contrast could be secondary to gastroesophageal reflux or presbyesophagus. There is linear atelectasis and/or fibrosis in the lingula and lower lobes bilaterally. Dextroscoliosis to the lumbar spine with marked degenerative changes is noted. A left renal cyst is noted. Subsequent chest x-rays reveal an NG tube to be coiled within the esophagus. ASSESSMENT AND PLAN: Mr. Roberts is an 82-year-old male who has a history of hypertension, hyperlipidemia, and mild aortic stenosis, who presented to the emergency room with complaints of abdominal pain, was found to have a small bowel obstruction with possible ischemia of the bowel. 1. Small bowel obstruction with possible small bowel ischemia. The patient has been evaluated by Dr. Beatty on the morning of admission. He currently appears to be relatively pain free, though I do believe that the patient is quite stoic. We will continue p.r.n. morphine and Zofran for nausea. The patient will have a repeat evaluation by Dr. Beatty later today. Two attempts at placing an NG tube were made; however, both times the NG coiled within the esophagus. There was blood noted within the NG tube. I suspect this is related to trauma. At this point, the NG tube has been removed. After Dr. Beatty repeats this exam later today, a decision will be made about placing an NG tube or potentially even going to the operating room. At this point, the patient did have an echocardiogram obtained in April 2018, that revealed a normal global left ventricular wall motion and contractility. EF was estimated to be 50% to 55%. There is mild aortic stenosis and mild aortic regurgitation. The patient was seen in April [address] Weaver after an attempt at inducing the patient for inguinal hernia repair, at which time he went bradycardic. At that point, Dr. 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 He also had a rate-related right bundle branch block. As the patient had no history of dizziness or syncope (which continues now) and a mild aortic stenosis on echo and exam, it was felt to be okay to proceed with surgery with no indication for pacemaker. The patient did undergo a complex hiatal hernia surgery in July 2017 without any cardiac complications and this was felt to be a good prognostic sign. At this point, the patient should proceed to the OR if needed without any further cardiac intervention. 2. Hypertension. The patient's blood pressure is moderately elevated with systolics in the 170s. He will have p.r.n. hydralazine. 3. Benign prostatic hypertrophy. The patient's finasteride and Flomax are going to be held. He currently has a Santillan catheter in place, which is draining adequately. 4. DVT prophylaxis: According to the Adult Thrombosis Prophylaxis Risk Factor Assessment Guide, the patient has a total risk factor score of 3, making him high risk. He will be placed on heparin 5000 units subcutaneous q.8 hours to be started on the evening of admission unless he goes to the operating room. 5. The patient is DNR; this has been updated. [id number]/[facility] #: [id number] MADALYN
--- NOTE | 2018-07-17 16:27 | BRIEFOPN ---
Brief Operative Note - Surgery Procedures: PREOP DX: SBO POSTOP DX: SAME AND ISCHEMIC SB PROC: LAPAROSCOPY, LAPAROTOMY, DULCE; SB RESECTION SURG: MECENAS ASSIST: NONE ANES: GET; FELLOWS EBL: <50 ML IVF: 1.7 L LR SPEC: PORTION JEJUNUM DRAIN: NONE COMPL: NONE COND: STABLE TO RR
[2018-07-17] MEDS: HYDROmorphone INJ1* 1 MG/ML SYRINGE IV SLOW PU PRN ×3 (17:44→22:11)
[2018-07-17] MEDS: ceFOXitin 2 GM IVPREMIX* 2 GM/50 ML BAG IVPB SCH (20:16)
[2018-07-17] MEDS: Heparin VIAL(*) 5000 UNITS/ML VIAL (FIVE THOUSAND) SUBCUT SCH ×3 (20:17→22:10)
[2018-07-18] MEDS: ceFOXitin 2 GM IVPREMIX* 2 GM/50 ML BAG IVPB SCH ×3 (01:42→16:25)
[2018-07-18] MEDS: Heparin VIAL(*) 5000 UNITS/ML VIAL (FIVE THOUSAND) SUBCUT SCH ×3 (05:13→21:56)
[2018-07-18 05:15] LABS: Hematocrit 39 % (42-52); Hemoglobin 12.8 g/dl (14.0-18.0); Mean Corpuscular HGB Conc 33 g/dl (31-36); Mean Corpuscular Hemoglobin 30 pg (27-31); Mean Corpuscular Volume 89 fL (80-94); Mean Platelet Volume 7.7 um3 (7.4-10.4); Platelet Count 252 10^3/ul (150-450); Red Blood Count 4.34 10^6/ul (4.00-5.40); Red Cell Distribution Width 15 % (10.5-15); White Blood Count 12.4 10^3/ul (3.5-10.8)
[2018-07-18] MEDS: HYDROmorphone INJ1* 1 MG/ML SYRINGE IV SLOW PU PRN ×7 (05:22→17:38)
--- NOTE | 2018-07-18 08:10 | PN ---
Subjective Date of Service: 07/18/18 Interval History: Mild pain. No flatus or BM. No new c/o. Objective Active Medications: Heparin Sodium (Porcine) (Heparin Vial(*)) 5,000 units SUBCUT Q8HR [facility] Last Admin: 07/18/18 05:13 Dose: 5,000 units Hydralazine HCl (Apresoline Iv*) 5 mg IV SLOW PU Q6H PRN PRN Reason: SBP>170 Hydromorphone HCl (Dilaudid Inj1s*) 1 mg IV SLOW PU Q1H PRN PRN Reason: PAIN Last Admin: 07/18/18 05:22 Dose: 1 mg Cefoxitin Sodium (Mefoxin 2gm Ivpremix*) 2 gm in 50 mls @ 100 mls/hr IVPB Q6H [facility] Stop: 07/18/18 17:00 Last Admin: 07/18/18 01:42 Dose: 100 mls/hr Lactated Ringer's (Lactated Ringers 1000 Ml Bag*) 1,000 mls @ 150 mls/hr IV PER RATE [facility] Stop: 07/18/18 16:27 Last Admin: 07/18/18 00:31 Dose: 150 mls/hr Ondansetron HCl (Zofran Inj*) 4 mg IV Q6H PRN PRN Reason: NAUSEA Pantoprazole Sodium (Protonix Iv*) 40 mg IV Q24H [facility] Last Admin: 07/17/18 11:36 Dose: 40 mg Vital Signs - 8 hr 07/18/18 07/18/18 07/18/18 00:30 01:00 01:30 Temperature Pulse Rate 54 59 60 Respiratory 21 17 9 Rate Blood Pressure 114/54 124/54 120/52 (mmHg) O2 Sat by Pulse 94 92 92 Oximetry 07/18/18 07/18/18 07/18/18 02:00 02:30 03:00 Temperature Pulse Rate 58 57 58 Respiratory 9 20 18 Rate Blood Pressure 103/54 127/65 109/55 (mmHg) O2 Sat by Pulse 93 95 94 Oximetry 07/18/18 07/18/18 07/18/18 03:17 03:30 03:54 Temperature 98 F Pulse Rate 59 Respiratory 17 Rate Blood Pressure 111/57 (mmHg) O2 Sat by Pulse 95 94 Oximetry 07/18/18 07/18/18 07/18/18 04:00 04:30 05:00 Temperature Pulse Rate 62 60 60 Respiratory 19 17 18 Rate Blood Pressure 119/57 120/58 136/67 (mmHg) O2 Sat by Pulse 94 96 95 Oximetry 07/18/18 07/18/18 07/18/18 05:17 05:22 05:30 Temperature Pulse Rate 62 Respiratory 16 24 19 Rate Blood Pressure 116/55 (mmHg) O2 Sat by Pulse 91 Oximetry 07/18/18 07/18/18 06:00 07:26 Temperature 98.8 F Pulse Rate 60 Respiratory 19 Rate Blood Pressure 111/58 (mmHg) O2 Sat by Pulse 93 Oximetry Oxygen Devices in Use Now: None Appearance: Alert, partly up in ICU bed. In good spirits. Looks comfortable. Eyes: No Scleral Icterus Respiratory: Symmetrical Chest Expansion and Respiratory Effort, Clear to Auscultation, Clear to Percussion Cardiovascular: NL Sounds; No Murmurs; No JVD, RRR, No Edema, - Abdominal: No Hepatosplenomegaly, - - Soft, mildly tender. No BS. Extremities: No Edema, No Clubbing, Cyanosis, - Skin: No Rash or Ulcers, No Nodules or Sclerosis, - Neurological: Alert and Oriented x 3, NL Sensation Result Diagrams: 07/18/18 04:57 07/18/18 04:57 Microbiology and Other Data: Microbiology 07/17/18 17:22 Nasal Screen MRSA (PCR) - Final Nasal Mrsa Not Detected Assess/Plan/Problems-Billing Assessment: - Patient Problems (1) SBO (small bowel obstruction) Current Visit: Yes Status: Acute Code(s): K56.609 - UNSP INTESTNL OBST, UNSP TO PARTIAL VERSUS COMPLETE OBST SNOMED Code(s): 425650632 Comment: S/P lap with SB resection 07/17/18. Management per surgeon. NPO 10 AM. (2) HTN (hypertension) Current Visit: No Status: Acute Code(s): I10 - ESSENTIAL (PRIMARY) HYPERTENSION SNOMED Code(s): 76131843 Comment: Resume hctz/triamterene when taking po. (3) Prostatism Current Visit: Yes Status: Acute Code(s): N40.0 - BENIGN PROSTATIC HYPERPLASIA WITHOUT LOWER URINRY TRACT SYMP SNOMED Code(s): 88400735 Comment: Resume finasteride and tamsulosin when taking po. Santillan in place 10 /1 AM.
--- NOTE | 2018-07-18 08:23 | OP ---
CC: Aysha Gonzáles M.D. * DATE OF OPERATION: 07/17/18 - ROOM #ICU-01 DATE OF : 37 SURGEON: Dr. Beatty. PARALEGAL SPECIALIST: None. ANESTHESIOLOGIST: Dr. Carrizales. ANESTHESIA: General endotracheal. PRE-OP DIAGNOSIS: Small bowel obstruction. POST-OP DIAGNOSES: Small bowel obstruction and small bowel ischemia. OPERATIVE PROCEDURE: Diagnostic laparoscopy, laparotomy, lysis of adhesions, small bowel resection with primary anastomosis. ESTIMATED BLOOD LOSS: Less than 50 mL. IV FLUIDS: 1. 7 L crystalloid. SPECIMEN: Portion of jejunum. DRAINS: None. COMPLICATIONS: None. COUNTS: Instrument, needle, and sponge counts were correct. DESCRIPTION OF PROCEDURE: The patient was brought to the operating room and placed on the table supine. Sequential compression devices were placed on both lower extremities and general anesthesia was administered. His abdomen was prepped and draped in usual sterile fashion and a time-out was performed. Periop local anesthetic was infiltrated into the skin and soft tissue in the periumbilical region and an infraumbilical vertical incision was created and using an open technique, the peritoneal cavity was accessed with a 5-mm trocar. Carbon dioxide was insufflated to a pressure of 15 mmHg. Visualization revealed dilated loops of small bowel with decompressed loops of small bowel and there appeared to be evidence of serosal ischemia. Based on these findings , decision was made to convert to laparotomy. Ports were removed and a midline laparotomy was completed. The findings were that a tongue of omentum was adherent to portions of the small bowel mesentery as well as down to the pelvis. There appeared to have thus been created an internal hernia, through which a loop of small intestine had herniated and this appeared ischemic. The involved segment was about 2 feet. The adhesions were lysed and the omentum was cauterized to achieve hemostasis. The small bowel was then run from the ileocecal valve proximally and distally, the involved intestine was the distal jejunum. The decision was made to resect this area and perform primary anastomosis. After scoring the mesentery and dividing this with LigaSure along the proposed line of resection, the resection was performed with the TRENA-80 stapler using a Prakash technique. The specimen was submitted to Pathology in formalin. The anastomosis was inspected and noted to be widely patent. A 3-0 silk was placed at the crotch of the anastomosis and the stapled end was oversewn with 3-0 PDS running. The mesenteric defect was closed with interrupted 3-0 silk. The bowel was returned to the abdominal cavity. Copious lavage was performed in the peritoneal cavity until clear. Subsequently, the midline wound was closed with #1 PDS running. The skin incision was closed with cal. Dressing was applied. The patient tolerated the procedure well. He was extubated and transferred to the recovery room in stable condition. [id number]/[facility] #: [id number] MADALYN
--- NOTE | 2018-07-18 10:09 | PN ---
Progress Note - Progress Note Date of Service: 07/18/18 SOAP: Subjective: Feeling better. Had pulled out his NGT. Denies flatus/N/V. Objective: Vital Signs Temp 98.8 F 07/18/18 07:26 Pulse 53 07/18/18 09:01 Resp 23 07/18/18 09:41 BP 131/63 07/18/18 09:01 Pulse Ox 97 07/18/18 09:01 Gen: NAD Abd: dressing c/d/i; ND; scant BS; tender incision. Intake & Output 07/17/18 07/18/18 07/18/18 18:59 06:59 18:59 Intake Total 2750 1978 Output Total 275 450 125 Balance 2475 1528 -125 Weight 116 lb 127 lb 6.835 oz Intake: IV Fluids 2750 1858 LR 1700 1858 NS 50ML, Cefoxitin 2G 50 IVPB 120 ABX - CEFOXITIN 120 Oral 0 Output: NG Tube Drainage Amount 100 Santillan 175 350 125 Estimated Blood Loss 100 Laboratory Results - last 24 hr 07/17/18 07/18/18 07/18/18 09:52 04:57 04:57 WBC 12.4 H RBC 4.34 Hgb 12.8 L Hct 39 L MCV 89 MCH 30 MCHC 33 RDW 15 Plt Count 252 MPV 7.7 Sodium 133 L Potassium 4.3 Chloride 102 Carbon Dioxide 26 Anion Gap 5 BUN 17 Creatinine 0.90 Est GFR ( Amer) 98.0 Est GFR (Non-Af Amer) 81.0 BUN/Creatinine Ratio 18.9 Glucose 147 H Lactic Acid 2.2 H* Calcium 8.5 L 07/18/18 05:01 WBC RBC Hgb Hct MCV MCH MCHC RDW Plt Count MPV Sodium Potassium Chloride Carbon Dioxide Anion Gap BUN Creatinine Est GFR ( Amer) Est GFR (Non-Af Amer) BUN/Creatinine Ratio Glucose Lactic Acid 1.5 Calcium Assessment: POD#1 s/p exlap/SBRsxn. Doing well. Plan: Txfr to SSSU Leave NGT out for now. Cont IVF. Abx 24 hr. PPI/SQ heparin. Discussed with patient//dtr.
[2018-07-18] MEDS: Pantoprazole IV* 40 MG IV SCH (11:30)
[2018-07-18] MEDS: NS 0.9% 1000 ML* 1,000 ML IV SCH (17:44)
--- NOTE | 2018-07-18 21:06 | PN ---
Progress Note - Progress Note Date of Service: 07/18/18 Note: Anesthesia, I saw the patient today around noon. He had just ada moved from ICU to the surgical stay unit. He looks well, alert, pain well controlled, no nausea, no recall. VSS no wheezes, heart regular. Doing well at this time.
[2018-07-19] MEDS: NS 0.9% 1000 ML* 1,000 ML IV SCH ×2 (01:45→10:47)
[2018-07-19 05:17] LABS: EGFR Non-African American 95.5 (>60)
[2018-07-19] MEDS: Heparin VIAL(*) 5000 UNITS/ML VIAL (FIVE THOUSAND) SUBCUT SCH ×3 (06:16→21:16)
[2018-07-19] MEDS: HYDROmorphone INJ1* 1 MG/ML SYRINGE IV SLOW PU PRN ×2 (06:18→13:02)
--- NOTE | 2018-07-19 09:16 | PN ---
Progress Note - Progress Note Date of Service: 07/19/18 SOAP: Subjective: Denies flatus. Pain controlled. No N/V. Objective: Dhab=748.9 Vital Signs Temp 98.3 F 07/19/18 07:09 Pulse 54 07/19/18 07:09 Resp 16 07/19/18 07:43 BP 144/59 07/19/18 07:09 Pulse Ox 97 07/19/18 07:09 Gen: NAD; pleasant, AxOx3 Lungs: CTA B Abd: incision c/d/i; no erythema; soft; ND; tender at incision. Scant BS. Ext: warm well perfused Intake & Output 07/18/18 07/19/18 07/19/18 18:59 06:59 18:59 Intake Total 1408 990 Output Total 865 450 Balance 543 540 Intake: IV Fluids 1347 990 LR 1347 NS (0.9%) 990 IVPB 61 ABX - CEFOXITIN 61 Oral 0 0 Output: NG Tube Drainage Amount 100 Alexandre 665 450 Estimated Blood Loss 100 Laboratory Results - last 24 hr 07/19/18 04:41 Sodium 135 Potassium 3.9 Chloride 103 Carbon Dioxide 26 Anion Gap 6 BUN 14 Creatinine 0.78 Est GFR ( Amer) 115.6 Est GFR (Non-Af Amer) 95.5 BUN/Creatinine Ratio 17.9 Glucose 101 H Calcium 8.5 L Assessment: POD#2 s/p exlap/SBRsxn. Febrile. Plan: CBC. Pulm toilet. UA then D/C alexandre. Ice chips. DVT/PUD prophylaxis.
[2018-07-19 09:46] LABS: ABS Basophils 0 10^3/ul (0-0.2); ABS Eosinophils 0 10^3/ul (0-0.6); ABS Lymphocytes 0.6 10^3/ul (1.0-4.8); ABS Monocytes 0.6 10^3/ul (0-0.8); ABS Neutrophils 7.3 10^3/ul (1.5-7.7); ABS Nucleated RBC 0 10^3/ul; Eosinophil % 0 % (0-6); Hematocrit 32 % (42-52); Hemoglobin 10.8 g/dl (14.0-18.0); Lymphocyte % 6.8 % (25-47); Mean Corpuscular HGB Conc 34 g/dl (31-36); Mean Corpuscular Hemoglobin 30 pg (27-31); Mean Corpuscular Volume 89 fL (80-94); Mean Platelet Volume 7.7 um3 (7.4-10.4); Nucleated Red Blood Cells % 0; Platelet Count 229 10^3/ul (150-450); Red Blood Count 3.63 10^6/ul (4.00-5.40); Red Cell Distribution Width 15 % (10.5-15); White Blood Count 8.5 10^3/ul (3.5-10.8)
[2018-07-19] MEDS: Pantoprazole IV* 40 MG IV SCH (11:12)
[2018-07-19 11:22] LABS: Urine Appearance Cloudy; Urine Blood 2+ (Negative); Urine Color Yellow; Urine Ketones 1+ (Negative); Urine Protein Negative (Negative); Urine Red Blood Cell 3+(>10/hpf) (Absent); Urine Specific Gravity 1.013 (1.010-1.030); Urine Urobilinogen Negative (Negative); Urine White Blood Cell Trace(0-5/hpf) (Absent)
[2018-07-19] MEDS: Tamsulosin CAP* 0.4 MG PO SCH (14:33)
[2018-07-19] MEDS: Finasteride TAB* 5 MG PO SCH (17:07)
[2018-07-20] MEDS: NS 0.9% 1000 ML* 1,000 ML IV SCH (02:37)
[2018-07-20] MEDS: Heparin VIAL(*) 5000 UNITS/ML VIAL (FIVE THOUSAND) SUBCUT SCH ×3 (05:33→22:24)
[2018-07-20] MEDS: Tamsulosin CAP* 0.4 MG PO SCH (08:03)
[2018-07-20] MEDS ORDERED: Pantoprazole IV* 40 MG IV SCH (09:00)
[2018-07-20] MEDS ORDERED: NS 0.9% 1000 ML* 1,000 ML IV SCH (16:50)
--- NOTE | 2018-07-20 16:58 | PN ---
Progress Note - Progress Note Date of Service: 07/20/18 Note: Surgery Progress: S: POD #3. Some pain, but less than yesterday. No N/V. Jay sips of clears. No flatus or BM. Ambulating. Current Medications Finasteride (Proscar Tab*) 5 mg PO 1800 [facility] Last Admin: 07/19/18 17:07 Dose: 5 mg Heparin Sodium (Porcine) (Heparin Vial(*)) 5,000 units SUBCUT Q8HR [facility] Last Admin: 07/20/18 14:11 Dose: 5,000 units Hydralazine HCl (Apresoline Iv*) 5 mg IV SLOW PU Q6H PRN PRN Reason: SBP>170 Hydromorphone HCl (Dilaudid Inj1s*) 1 mg IV SLOW PU Q1H PRN PRN Reason: PAIN Last Admin: 07/19/18 13:02 Dose: 1 mg Sodium Chloride (Ns 0.9% 1000 Ml*) 1,000 mls @ 50 mls/hr IV PER RATE [facility] Ondansetron HCl (Zofran Inj*) 4 mg IV Q6H PRN PRN Reason: NAUSEA Pantoprazole Sodium (Protonix Iv*) 40 mg IV Q24HR@0900 [facility] Last Admin: 07/20/18 08:03 Dose: 40 mg Tamsulosin HCl (Flomax Cap*) 0.4 mg PO DAILY [facility] Last Admin: 07/20/18 08:03 Dose: 0.4 mg O: Vital Signs - 8 hr 07/20/18 07/20/18 07/20/18 11:28 15:35 16:00 Temperature 98.1 F 100.0 F Pulse Rate 53 54 Respiratory 17 18 Rate Blood Pressure 156/61 151/64 (mmHg) O2 Sat by Pulse 97 97 97 Oximetry Intake and Output Last 24 Hours 07/18/18 07/19/18 07/20/18 07/21/18 06:59 06:59 06:59 06:59 Intake Total 4728 2398 3491 100 Output Total 725 1315 2000 Balance 4003 1083 1491 100 Weight 127 lb 6.835 oz Intake: IV Fluids 4608 2337 1424 LR 3558 1347 NS (0.9%) 990 1424 NS 50ML, Cefoxitin 2G 50 IVPB 709 37 4574 ABX - CEFOXITIN 120 61 NS (0.9%) 1507 Oral 0 0 560 100 Output: NG Tube Drainage Amount 100 100 Urine 50 [place] 525 1115 1450 Residual 500 [place] 500 Estimated Blood Loss 100 100 Gen: NAD Heart: reg, mildly bradycardic Lungs: clear; no rales or wheezes Abd: midline incision w/ mild erythema; no sig distension or tympany. +BS. Soft ; mild tenderness, mostly R sided. Extr: no LE edema; some edema of hands/fingers L> R. A: s/p expl lap, SB rsxn for SBO, w/ resolving ileus P: discussed w/ Dr. Beatty; will cont sips of clears for today; possibly advance tomorrow. Cont to monitor fever (Tmax today 100) and abd wound. Poss d/ c Santillan 07/21. Will reorder IS as it is not in his room.
[2018-07-20] MEDS: Finasteride TAB* 5 MG PO SCH (18:29)
[2018-07-20] MEDS: HYDROmorphone INJ1* 1 MG/ML SYRINGE IV SLOW PU PRN (23:01)
[2018-07-21] MEDS: Heparin VIAL(*) 5000 UNITS/ML VIAL (FIVE THOUSAND) SUBCUT SCH ×3 (06:19→22:20)
--- NOTE | 2018-07-21 07:53 | PN ---
Progress Note - Progress Note Date of Service: 07/21/18 SOAP: Subjective: []+flatus. No pain. Objective: Vital Signs Temp 98.9 F 07/21/18 03:57 Pulse 54 07/21/18 03:57 Resp 16 07/21/18 03:57 BP 162/78 07/21/18 04:09 Pulse Ox 97 07/21/18 03:57 Gen: NAD Lungs: CTA B Abd: ND, soft, tender at incision; incis c/d/i; no erythema; +BS Intake & Output 07/20/18 07/21/18 07/21/18 18:59 06:59 18:59 Intake Total 100 220 Output Total 575 Balance 100 -355 Intake: Oral 100 220 Output: Santillan 575 Other: # Bowel Movements 0 Assessment: POD#4 s/p exlap/SBRsxn. Postop ileus resolved. Plan: Adv diet. PO meds. Home later today or AM.
[2018-07-21] MEDS: Triamterene/HCTZ 37.5-25 MG* CAP PO SCH (08:13)
[2018-07-21] MEDS: Tamsulosin CAP* 0.4 MG PO SCH (08:13)
[2018-07-21] MEDS: oxyCODONE/Acetamin 5/325 MG* TAB PO PRN ×2 (08:13→11:26)
[2018-07-21] MEDS ORDERED: HYDROcodone/ACETAMIN 5-325 MG* 1 TAB PO PRN ×2 (13:31)
--- NOTE | 2018-07-21 17:03 | PN ---
Subjective Date of Service: 07/21/18 Interval History: Pt is feeling well. He has some abdominal pain but it is tolerable. He has passed flatus but no BM. He has tolerated a diet without issues. He would like to go home tomorrow. Objective Active Medications: Hydrocodone Bitart/Acetaminophen ([place] 5-325 Tab*) 1 tab PO Q4H PRN PRN Reason: Pain 1-5 Hydrocodone Bitart/Acetaminophen ([place] 5-325 Tab*) 2 tab PO Q4H PRN PRN Reason: Pain 6-10 Last Admin: 07/21/18 14:28 Dose: 2 tab Finasteride (Proscar Tab*) 5 mg PO 1800 [facility] Last Admin: 07/20/18 18:29 Dose: 5 mg Heparin Sodium (Porcine) (Heparin Vial(*)) 5,000 units SUBCUT Q8HR [facility] Last Admin: 07/21/18 14:28 Dose: 5,000 units Hydralazine HCl (Apresoline Iv*) 5 mg IV SLOW PU Q6H PRN PRN Reason: SBP>170 Omeprazole (Prilosec Cap*) 20 mg PO DAILY@0600 [facility] Ondansetron HCl (Zofran Inj*) 4 mg IV Q6H PRN PRN Reason: NAUSEA Tamsulosin HCl (Flomax Cap*) 0.4 mg PO DAILY [facility] Last Admin: 07/21/18 08:13 Dose: 0.4 mg Triamterene/HCTZ (Dyazide Cap*) 1 cap PO DAILY [facility] Last Admin: 07/21/18 08:13 Dose: 1 cap Vital Signs - 8 hr 07/21/18 07/21/18 07/21/18 10:28 11:24 11:26 Temperature Pulse Rate 51 Respiratory 18 16 18 Rate Blood Pressure 152/66 (mmHg) O2 Sat by Pulse 100 Oximetry 07/21/18 07/21/18 07/21/18 14:00 14:28 15:20 Temperature 98.6 F Pulse Rate 52 Respiratory 18 18 16 Rate Blood Pressure 138/63 (mmHg) O2 Sat by Pulse 99 Oximetry 07/21/18 07/21/18 15:46 16:52 Temperature Pulse Rate Respiratory 15 Rate Blood Pressure (mmHg) O2 Sat by Pulse 99 Oximetry Oxygen Devices in Use Now: None Appearance: Elderly male sitting up in bed, NAD Eyes: No Scleral Icterus Ears/Nose/Mouth/Throat: Mucous Membranes Moist Respiratory: Symmetrical Chest Expansion and Respiratory Effort, Clear to Auscultation Cardiovascular: NL Sounds; No Murmurs; No JVD, RRR, No Edema Abdominal: NL Sounds; No Tenderness; No Distention, - - scant drainage from upper aspect of incision, mild erythema surrounding the incision Extremities: No Clubbing, Cyanosis Skin: No Nodules or Sclerosis Neurological: Alert and Oriented x 3 Result Diagrams: 07/19/18 09:32 07/19/18 04:41 Microbiology and Other Data: Microbiology 07/17/18 17:22 Nasal Screen MRSA (PCR) - Final Nasal Mrsa Not Detected Assess/Plan/Problems-Billing Mr Roberts is an 82 yo M who has a h/o HTN and BPH as well as past incarcerated paraesophageal hernia repair who presented to the ER with c/o abdominal pain and was found to have a SBO and small bowel ischemia s/p resection. - Patient Problems (1) Postoperative fever Current Visit: Yes Status: Acute Code(s): R50.82 - POSTPROCEDURAL FEVER SNOMED Code(s): 919155785 Comment: Pt with fever on 07/19/18. No clear source of infection found. No further fever despite no Abx. Monitor incision and erythema surrounding the incision. (2) SBO (small bowel obstruction) Current Visit: Yes Status: Acute Code(s): K56.609 - UNSP INTESTNL OBST, UNSP TO PARTIAL VERSUS COMPLETE OBST SNOMED Code(s): 251518026 Comment: S/P laporotmy with small bowel resection 07/17/18. Pt is passing flatus but no BM yet. Tolerating a diet. Likely home tomorrow. (3) HTN (hypertension) Current Visit: Yes Status: Acute Code(s): I10 - ESSENTIAL (PRIMARY) HYPERTENSION SNOMED Code(s): 40471975 Comment: BP under fair control on home Triamterene/HCTZ. Monitor BP. (4) DVT prophylaxis Current Visit: Yes Status: Acute Code(s): EMR7518 - SNOMED Code(s): 315358479 Comment: SQ Heparin (5) DNR (do not resuscitate) Current Visit: Yes Status: Acute
[2018-07-21] MEDS: Finasteride TAB* 5 MG PO SCH (17:27)
[2018-07-22] MEDS: Heparin VIAL(*) 5000 UNITS/ML VIAL (FIVE THOUSAND) SUBCUT SCH (05:57)
[2018-07-22] MEDS ORDERED: Omeprazole CAP* 20 MG PO SCH (06:00)
--- NOTE | 2018-07-22 08:25 | PN ---
Progress Note - Progress Note Date of Service: 07/22/18 SOAP: Subjective: Pt feeling well. Tolerating diet and passing flatus. No N/V. Reports penile edema. Objective: Vital Signs Temp 98.2 F 07/22/18 04:20 Pulse 51 07/22/18 04:20 Resp 18 07/22/18 04:20 BP 125/51 07/22/18 04:20 Pulse Ox 97 07/22/18 04:20 Gen: NAD; sleeping and easily arousable. Abd: Incision c/d/i; no erythema. Soft, min tender. Genitalia: penile edema; no erythema; no bleeding. Intake & Output 07/21/18 07/22/18 07/22/18 18:59 06:59 18:59 Intake Total 925 460 Output Total 610 450 Balance 315 10 Intake: IVPB 565 NS (0.9%) 565 Oral 360 460 Output: Urine 610 450 [place]an 0 Other: # Bowel Movements 0 Assessment: POD#5 s/p exlap/SBRsxn. Doing well. Plan: D/C home. RTO next week.
[2018-07-22 08:46] VITALS: BP 150/63
[2018-07-22] MEDS: Triamterene/HCTZ 37.5-25 MG* CAP PO SCH (09:03)
[2018-07-22] MEDS: Tamsulosin CAP* 0.4 MG PO SCH (09:04)
== END 2018-07-22 10:45 | disposition home or self-care (01) | DRG 330 ==
LOC: ED 03:22 → SSU 09:48 → ICU 16:28 → SSU 07-18 12:16
PROVIDERS: ADMIT Hospitalist; ATTEND Hospitalist
PROC: 0DBA0ZZ Excision of Jejunum, Open Approach (ICD-10-PCS; 2018-07-17)
PROC: 0DJD4ZZ Inspection of Lower Intestinal Tract, Percutaneous Endoscopic Approach (ICD-10-PCS; 2018-07-17)
PROC: 0DH67UZ Insertion of Feeding Device into Stomach, Via Natural or Artificial Opening (ICD-10-PCS; 2018-07-17)
PROC: 0DP6XUZ Removal of Feeding Device from Stomach, External Approach (ICD-10-PCS; principal; 2018-07-17 13:34)
DX: K56.609 Unspecified intestinal obstruction, unspecified as to partial versus complete obstruction (principal); K55.9 Vascular disorder of intestine, unspecified; R18.8 Other ascites; K56.7 Ileus, unspecified; I10 Essential (primary) hypertension; E78.5 Hyperlipidemia, unspecified; N48.89 Other specified disorders of penis; I35.2 Nonrheumatic aortic (valve) stenosis with insufficiency; N40.0 Benign prostatic hyperplasia without lower urinary tract symptoms; M19.90 Unspecified osteoarthritis, unspecified site; J44.9 Chronic obstructive pulmonary disease, unspecified; I45.10 Unspecified right bundle-branch block; Z66 Do not resuscitate; K57.90 Diverticulosis of intestine, part unspecified, without perforation or abscess without bleeding; N28.1 Cyst of kidney, acquired; M41.86 Other forms of scoliosis, lumbar region; E11.9 Type 2 diabetes mellitus without complications; I25.10 Atherosclerotic heart disease of native coronary artery without angina pectoris; K21.9 Gastro-esophageal reflux disease without esophagitis; R50.82 Postprocedural fever; K44.9 Diaphragmatic hernia without obstruction or gangrene; Z81.8 Family history of other mental and behavioral disorders; Z87.891 Personal history of nicotine dependence; Z53.31 Laparoscopic surgical procedure converted to open procedure
CPT/HCPCS: 36415; 71045; 74177; 80048; 80053; 81003; 81015; 83605; 83690; 84484; 85025; 85027; 85610; 85730; 86140; 87086; 87641; 88307; 93005; 99285; A9270-GY; C1776; J0330; J0360; J0694; J1100; J1170; J1644; J2250; J2270; J2405; J2704; J2710; J3010; Q9967

== ENCOUNTER 2018-08-02 14:07 | Emergency (ER) | payer MEDICARE ==
--- NOTE | 2018-08-02 14:40 | ED ---
GI/ HPI - HPI Summary HPI Summary: This patient is a 82 year old M presenting to [facility] accompanied by his with a chief complaint of ABD pain and trouble eating due to a sore mouth and thrush. The patient rates the pain 3/10 in severity. Symptoms aggravated by nothing. Symptoms alleviated by nothing. Patient reports uncontrolled drooling. Patient denies vomiting (pt is s/p Marielle), fever, urinary sx, SOB, and CP. Pt had a small bowel resection for SBO/ischemic bowel on 07/17/[address] Beatty, and currently has thrush. Pt had his cal removed on 07-28-18 and states he told Dr. Beatty of the stomach pains and about his tongue at that time. Pt was dx with thrush and given medication for thrush, but states there has been minimal improvement since then. He is only eating broth, soup, scrambled eggs, and mashed potatoes. He also had diarrhea on 07-30-18 all day but it has resolved since. He called Dr. Beatty today and he suggested he come to the ED for evaluation. He has not taken his thrush medication today. Pt is also S/P Marielle fundoplication for paraesophageal hernia 07/2017 and Left inguinal hernia repair with mesh (05/18/2018). Vital signs while in room: HR 57 bpm, BP 158/82. Pt is afebrile. Pt has no chest pain, SOB. Finasteride [Proscar] 5 mg PO 1800 05/04/18 [History Confirmed 07/17/18] Tamsulosin CAP* [Flomax CAP*] 0.4 mg PO QAM 05/04/18 [History Confirmed 07/17/18 ] Triamterene/HCTZ 37.5-25 MG* [Dyazide CAP*] 1 cap PO QAM 05/04/18 [History Confirmed 07/17/18] Acetaminophen [Tylenol Arthritis] 650 mg PO DAILY 08/02/18 [History Confirmed ] Nystatin SUSPENSION* [Nystatin*] 5 ml PO Q6HR PRN 08/02/18 [History Confirmed ] Omeprazole CAP* [Prilosec CAP* 20 MG] 20 mg PO DAILY 08/02/18 [History Confirmed 08/02/18] - History of Current Complaint Chief Complaint: EDAbdPain Time Seen by Provider: 08/02/18 14:24 Stated Complaint: ABD PAIN FOLLOWING SURGERY Hx Obtained From: Patient, Family/Crane Rigger - , Medical Records, Other: - Dr. Beatty and Dr. Benjamin Onset/Duration: Started Days Ago, Still Present Timing: Constant Severity: Moderate Current Severity: Moderate Pain Intensity: 3 Location of Pain: RLQ Pain Characteristics: Sharp Associated Signs and Symptoms: Positive: Negative - vomiting, fever, urinary sx , SOB, and CP Aggravating Factor(s): Nothing Alleviating Factor(s): Nothing - Additional Pertinent History Primary Care Physician: [id number] - Allergy/Home Medications Allergies/Adverse Reactions: Allergies Allergy/AdvReac Type Severity Reaction Status Date / Time No Known Allergies Allergy Verified 08/03/18 10:03 Home Medications: Home Medications Acetaminophen [Tylenol Arthritis] 650 mg PO DAILY 08/02/18 [History Confirmed ] Nystatin SUSPENSION* [Nystatin*] 5 ml PO Q6HR PRN 08/02/18 [History Confirmed ] Omeprazole CAP* [Prilosec CAP* 20 MG] 20 mg PO DAILY 08/02/18 [History Confirmed 08/02/18] PMH/Surg Hx/FS Hx/Imm Hx Previously Healthy: No Endocrine/Hematology History: Reports: Hx Diabetes Cardiovascular History: Reports: Hx Coronary Artery Disease, Hx Hypercholesterolemia, Hx Hypertension, Hx Rheumatic Fever, Other Cardiovascular Problems/Disorders - 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 stoll inpt. for 1 week post op, Other GI Disorders - right inguinal hernia History: Reports: Other Problems/Disorders - ENLARGED PROSTATE Denies: Hx Renal Disease Musculoskeletal History: Reports: Hx Arthritis Denies: Hx Rheumatoid Arthritis, Hx Osteoporosis Sensory History: Reports: Hx Contacts or Glasses Denies: Hx Hearing Aid Opthamlomology History: Reports: Hx Contacts or Glasses - Surgical History Surgery Procedure, Year, and Place: hiatal hernia repair, paraesophageal hernia 07/2017 [facility] [place], Dr. Stoll, MARIELLE FUNDOPLICATION AND PLACEMENT OF HEIMLICH VALVES FOR PNEUMOTHORACES. left inguinal hernia repair with mest 05/18/18. SBO/ ischemic bowel, small bowel resection 07/17/18 Hx Anesthesia Reactions: No Infectious Disease History: No Infectious Disease History: Denies: Traveled Outside the [place] in Last 30 Days - Family History Known Family History: Negative: Respiratory Disease, Seizure Disorder, Blood Disorder - Social History Lives: With Family Alcohol Use: None Substance Use Type: Reports: None Hx Tobacco Use: Yes Smoking Status (MU): Former Smoker Review of Systems Negative: Fever ENT: Other - thrush, sore tongue, drooling Negative: Chest Pain Negative: Shortness Of Breath Gastrointestinal: Other - trouble eating Positive: Abdominal Pain, Diarrhea, Other - drooling . Negative: Vomiting Positive: no symptoms reported Skin: Negative Neurological: Negative Psychological: Normal All Other Systems Reviewed And Are Negative: Yes Physical Exam - Summary Physical Exam Summary: Appearance: Well-appearing, moderate pain distress, well-nourished Skin: there is a large lipoma in the right posterior lower rib cage that is 5cm Head: Normal Head/Face inspection, atraumatic Eyes: Conjunctiva clear ENT: enlarged papillae in the right lateral tongue, there is an ulceration on the underside of the tongue on the right that is 3mm by 2mm, there is no white plaquing Neck: Supple, no nodes, no JVD Respiratory: Lungs clear, normal breath sounds, no respiratory distress Cardio: RRR, No murmur, pulses normal, brisk capillary refill Abdomen: Soft, incision midline below umbilicus is well healed with steri strips in place, no drainage, wound edges are well approximated. LUQ has purple ecchymosis, RLQ has erythematous ecchymosis, non distended, tenderness RLQ, no guarding, no rebound, no masses. Reducible right inguinal hernia Bowel sounds: normoactive in all quadrants Musculoskeletal: Strength Intact/ROM intact, no calf tenderness, no edema. Psychological: Normal Neuro: Alert, muscle tone normal, no focal deficit Triage Information Reviewed: Yes Vital Signs On Initial Exam: Initial Vitals Temp Pulse Resp BP Pulse Ox 98 F 56 16 148/86 99 08/02/18 14:10 08/02/18 14:10 08/02/18 14:10 08/02/18 14:10 08/02/18 14:10 Vital Signs Reviewed: Yes Diagnostics - Vital Signs Vital Signs Temp Pulse Resp BP Pulse Ox 08/02/18 14:10 98 F 56 16 148/86 99 - Laboratory Result Diagrams: 08/02/18 14:53 08/02/18 14:53 Lab Statement: Any lab studies that have been ordered have been reviewed, and results considered in the medical decision making process. - Radiology CXR Radiology Interpretation Completed By: Radiologist - HYPERINFLATION. NO ACTIVE CARDIOPULMONARY DISEASE. ED physician has reviewed this radiology report. - CT CT ABD/Pelvis CT Interpretation Completed By: Radiologist - Small bowel obstruction. Dilated loops of small bowel with a zone of transition in the left mid abdomen. Cannot totally exclude an internal hernia in this region. Small amount of free fluid is noted in the pelvis. Enlarged prostate. ED physician has reviewed this radiology report. - EKG 1443 Cardiac Rate: Bradycardia EKG Rhythm: 2nd Degree HB - 57 ST Segment: Non-Specific Ectopy: PACs EKG Interpretation: second degree heart block, type I; prolonged QTc, incomplete RBBB EKG Comparison: No Significant Change - c/w 07/17/18; discussed and reviewed in person with Dr. Benjamin Re-Evaluation - Re-Evaluation First Eval Re-Evaluation Time: 15:08 Change: Unchanged Comment: The patient has a BP of 196/96 and a pulse of 62 BPM, aware of trop of 0.04. Denies CP, SOB. No vomiting in ED. Pt remains a full code. Second Eval Re-Evaluation Time: 17:25 Change: Unchanged Comment: Pt and advised that Dr. Beatty is in ICU, and will come to evaluate pt as soon as possible. Pt denies CP, SOB. No vomiting. Third Eval Re-Evaluation Time: 19:00 Change: Unchanged Comment: Pt seen with Dr. Beatty. Denies vomiting, CP, SOB. Fourth Eval Re-Evaluation Time: 19:40 Change: Unchanged Comment: Explained to pt and family (, daughter and son) that lab is re- running troponin values from the first result. Fifth Eval Re-Evaluation Time: 21:00 Change: Unchanged Comment: family remain with pt. No CP, SOB, or vomiting. Minimal abd pain. Pt was able to drink water in the ED. Abd Soft, min diffuse tenderness, nondistended. Discussed repeat troponin values are normal. Pt and family agree with discharge and will follow up with Dr. Beatty in his office in 1-2 days. GIGU Course/Dx - Course Assessment/Plan: Pt presents with ABD pain, sore tongue, trouble eating, and concern for SBO. Pt is post op small bowel resection and SBO 07/17/18. An EKG reveals second degree heart block type I , RBBB, prolonged Qtc (527), compared with 07-17-18 no significant change.THIS READING IS AFTER PERSONAL REVIEW WITH DR. BENJAMIN: not COMPLETE HEART BLOCK, IS SECOND DEGREE HEART BLOCK TYPE 1 WITH INCOMPLETE RBBB. CXR reveals, per radiologist, HYPERINFLATION. NO ACTIVE CARDIOPULMONARY DISEASE. CT ABD/Pelvis reveals, per radiologist, Small bowel obstruction. Dilated loops of small bowel with a zone of. transition in the left mid abdomen. Cannot totally exclude an internal hernia in this. region. Small amount of free fluid is noted in the pelvis. Enlarged prostate. I reviewed the surgery report form 07-18-18. Nystatin was ordered for the patient s thrush, he remains pain free in the ED. 1508 We discussed patient care with Dr. Benjamin and he will consult on the patient. He stated by phone that the EKG is complete heart block, but is not of immediate concern as pt has good mentation, good blood pressure and no CP. Dr. Bnejamin re-reviewed EKG with me and stated the EKG is unchanged from prior and is NOT complete heart block, as P waves do not march out and R waves do not march out. Dr. Benjamin states pt is in second degree heart block type 1 with incomplete RBBB. [address] Beatty and he is currently in the ICU doing a procedure. 1745 Dr Beatty states still he is with a critical patient in the ICU but he will be down as soon as he can. 1858 Dr. Beatty talked to the patient and his family and he states he does not need an operation and suggest f/u abdominal films to make sure CT contrast passed. I will contact hospitalist to discuss possible medical admission due to elevated troponin. 1926 Dr Beatty is in the ED and he suggests the pt may go home and f/u as outpatient. He states since he is passing gas and there is contrast distally, that he can f/u as outpatient. If he does stay in the hospital he will order an xray tomorrow. 7 I discussed patient care with Dr. Ruiz, hospitalist. She recommended that the lab repeat that original troponin and that pt's presentation doesnt sound cardiac. 1931 I contacted the lab and John in lab is re-running the first troponin. 20:18 John from the lab repeated the troponin twice from the original sample and it was 0.01 both times. Patient will be discharged and follow up with Dr. Beatty in his office in 1-2 days definitely. The patient is agreeable with this plan. - Diagnoses Differential Diagnoses - Male: ACS, Constipation, Bowel Obstruction, Incarcerated Hernia, Ischemic Bowel, Pancreatitis, Other - POST OPERATIVE PAIN, Thrush Provider Diagnoses: Acute postoperative abdominal pain, H/O small bowel obstruction, Heart block AV second degree - Physician Notifications Discussed Care Of Patient With: Jamaal Benjamin Time Discussed With Above Provider: 15:08 Instructed by Provider To: Other - see course and consult sections. Also consulted Dr. Beatty and Dr. Ruiz (see course and consult sections) Discharge - Sign-Out/Discharge Documenting (check all that apply): Patient Departure - home - Discharge Plan Condition: Stable Disposition: HOME Patient Education Materials: Oral Candidiasis (ED), Heart Block (ED), Acute Abdominal Pain (ED) Referrals: Jair Beatty MD [Medical Doctor] - 1 Day Rodrigo Son NP [Primary Care Provider] - 2 Days Additional Instructions: You were seen by Dr. Benjamin (cardiology) and Dr. Beatty (general surgeon who did your surgery). Both doctors do not feel that you have an acute condition that needs hospitalization at this time. Dr. Beatty wants to see you in his office tomorrow or for sure, so he can make sure that the dye from the CT scan has progressed through your system. Continue your medications, including your thrush medication. Return to the ER if you have new or worsening symptoms. - Billing Disposition and Condition Condition: STABLE Disposition: Home - Attestation Statements Document Initiated by Scribe: Yes Documenting Scribe: Anibal Price Provider For Whom Scribe is Documenting (Include Credential): Dr. Bel Retana MD Scribe Attestation: IAnibal , scribed for Dr. Bel Retana MD on 08/05/18 at 0726. Luis Manuel Documentation Reviewed: Yes Provider Attestation: The documentation as recorded by the scribe, Anibal Price accurately reflects the service I personally performed and the decisions made by me, Dr. Bel Retana MD Consult Consult: [id number] We discussed patient care with Dr. Benjamin and they will consult on the patient. He states the EKG is complete heart block. Discussed further in person reviewing EKG together: second degree heart block type I, incomplete RBBB, NOT Complete heart block. [address] Beatty and he is currently in the ICU doing a procedure. 1745 Dr Beatty states still he is with a critical patient in the ICU but he will be down as soon as he can. 1858 Dr. Beatty talked to the patient and his family and he states he does not need an operation and suggest f/u abdominal films to make sure CT contrast passed. I will contact hospitalist to discuss possible medical admission for elevated troponin, cardiac status. 1926 Dr Beatty is in the ED and he suggests the pt go home and f/u as outpatient. He states since he is passing gas and there is contrast distally, that he can f/u as outpatient. If he does stay in the hospital he will order an xray tomorrow. 1927 I discussed patient care with Dr. Ruiz, hospitalist. She recommended the lab repeat that original troponin and that if normal, pt can be DC'd. 193 I contacted the lab and John in lab is rerunning the first troponin. 20:18 John from the lab repeated the troponin twice from the original sample and it was 0.01 both times.
[2018-08-02 15:02] LABS: ABS Basophils 0 10^3/ul (0-0.2); ABS Eosinophils 0 10^3/ul (0-0.6); ABS Lymphocytes 0.7 10^3/ul (1.0-4.8); ABS Monocytes 0.7 10^3/ul (0-0.8); ABS Neutrophils 6.7 10^3/ul (1.5-7.7); ABS Nucleated RBC 0 10^3/ul; Eosinophil % 0.2 % (0-6); Hematocrit 35 % (42-52); Hemoglobin 12.1 g/dl (14.0-18.0); Lymphocyte % 8.1 % (25-47); Mean Corpuscular HGB Conc 34 g/dl (31-36); Mean Corpuscular Hemoglobin 30 pg (27-31); Mean Corpuscular Volume 89 fL (80-94); Nucleated Red Blood Cells % 0.1; Platelet Count 486 10^3/ul (150-450); Red Blood Count 3.99 10^6/ul (4.00-5.40); Red Cell Distribution Width 15 % (10.5-15); White Blood Count 8.1 10^3/ul (3.5-10.8)
[2018-08-02 15:14] LABS: INR 0.96 (0.77-1.02)
[2018-08-02 15:27] LABS: EGFR Non-African American 76.1 (>60)
--- NOTE | 2018-08-02 15:51 | RAD ---
HISTORY: abd pain COMPARISONS: July 17, 2018 VIEWS: 1: frontal AP view of the chest at 3:40 PM FINDINGS: LINES AND TUBES: None. CARDIOMEDIASTINAL SILHOUETTE: The cardiomediastinal silhouette is normal for portable technique. PLEURA: The costophrenic angles are sharp. No pleural abnormalities are noted. LUNG PARENCHYMA: There is hyperinflation. ABDOMEN: The upper abdomen is clear. There is no subphrenic gas. BONES AND SOFT TISSUES: Degenerative changes are noted. IMPRESSION: HYPERINFLATION. NO ACTIVE CARDIOPULMONARY DISEASE.
[2018-08-02] MEDS ORDERED: NS 0.9% 1000 ML* 1,000 ML IV ONE (15:59)
[2018-08-02] MEDS ORDERED: Iodixanol* (CONTRAST) 320 MG/ML 100 ML SDV IV ONE (16:10)
--- NOTE | 2018-08-02 17:01 | RAD ---
Indication: Abdominal pain, small bowel obstruction. Contrast: Administered 68.0 ml of VISAPAQUE 320 mg/ml CT of the abdomen and pelvis was performed after oral and IV contrast demonstration. Coronal and sagittal reconstructed images were obtained. Comparison is made with previous exam dated July 17, 2018. The lung bases demonstrate no pleural fluid. Right basilar atelectasis is noted. Hiatal hernia is noted. The heart demonstrates no pericardial effusion. The liver is normal in size. No focal lesions or intrahepatic duct dilatation is noted. The spleen is normal in size. The pancreas demonstrates no mass or pancreatic duct dilatation. The gallbladder demonstrates no calcified gallstones. No pericholecystic fluid or wall thickening is identified. The common duct is not dilated. No adrenal lesions are noted. The kidneys demonstrate symmetric nephrograms with cortical cyst in the left kidney. No retroperitoneal lymphadenopathy is noted. There are dilated loops of small bowel predominantly in the left abdomen extending into the right abdomen. Collapsed loops of distal bowel are noted in the right lower quadrant. Zone of transition appears to be in the mid left abdomen. I cannot totally exclude an internal hernia. CT of the pelvis demonstrates diverticulosis without evidence of diverticulitis. The urinary bladder is otherwise distended. Prostate is enlarged. Mild grade amount of free fluid is noted in the pelvis. IMPRESSION: Small bowel obstruction. Dilated loops of small bowel with a zone of transition in the left mid abdomen. Cannot totally exclude an internal hernia in this region. Small amount of free fluid is noted in the pelvis. Enlarged prostate.
[2018-08-02] MEDS ORDERED: Nystatin SUSPENSION* 100000 UNITS/ML 5 ML UDC PO ONE (19:10)
[2018-08-02 21:36] VITALS: BP 161/82
--- NOTE | 2018-08-02 23:29 | CONS ---
CC: Dr. Arnulfo Piedra; Dr. Shayla Weaver * CARDIOLOGY CONSULTATION: DATE OF CONSULT: 08/02/18 - EMERGENCY DEPT INDICATION FOR CONSULTATION: Heart block. CHIEF COMPLAINT: Abdominal pain. HISTORY OF PRESENT ILLNESS: The patient is an 82-year-old gentleman with history of recent inguinal hernia repair who, at that time, was found to have second-degree heart block and had a consultation with Dr. Weaver at that time. 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 The patient came to the hospital today because of abdominal pain and an EKG read out as third-degree heart block. When I reviewed the EKG myself, I think it is the same second- degree heart block type 1 with incomplete right bundle branch block. The P- waves did not march out and the R-waves did not march out. In speaking with the patient, he has had no episodes of lightheadedness, dizziness, or syncope. He denies any chest pain. He denies any palpitations. The patient is scheduled to have a CAT scan of his abdomen within the next hour. PAST MEDICAL HISTORY: Significant for ooff-sd-zyrinkld aortic stenosis, hypertension, benign prostatic hypertrophy, arthritis. PAST SURGICAL HISTORY: Laparoscopic hernia repair in July 2007, Marielle fundoplication, also inguinal hernia repair in April 2018. OUTPATIENT MEDICATIONS: 1. Omeprazole 20 mg a day. 2. Finasteride 5 mg a day. 3. Triamterene/hydrochlorothiazide one a day. 4. Tamsulosin 0.4 mg a day. ALLERGIES: No known drug allergies. FAMILY HISTORY: Positive for hypertension and diabetes. SOCIAL HISTORY: He is . He has a very supportive . He is retired. He denies tobacco or alcohol use. He does not get any regular exercise. REVIEW OF SYSTEMS: Negative for fevers or chills. Negative for bowel or bladder habit changes. Negative for change in weight. Other 12-point review was unremarkable. PHYSICAL EXAM: Height is 5 feet 4 inches, weight is 120 pounds. Heart rate is 60, blood pressure 181/84, respiratory rate is 23, oxygen saturation 98% on room air. Sclerae anicteric. Oropharynx is pink without erythema. Carotids are 2+ with soft bilateral bruits. JVD is normal. Thyroid is normal. Cardiac Exam: S1, S2 with a 1/6 systolic ejection murmur, heard best at the right upper sternal border. PMI is normal. Lungs are clear to auscultation bilaterally. There is no dullness to percussion. Abdomen: Slightly distended. Decreased bowel sounds. There is no hepatosplenomegaly. It is nontender. Extremities: Show no edema. He has 2+ pulses throughout. The patient is awake, alert, and oriented. He moves all 4 extremities equally. DIAGNOSTIC STUDIES/LAB DATA: White count 8.1, hemoglobin 12, hematocrit 35, platelet count 486. Chemistries within normal limits. BUN 12, creatinine 0.9. Troponin 0.04. Amylase and TSH are within normal limits. EKG as described above. He had an echocardiogram on 05/11/18, which demonstrated normal LV size and systolic function, mild aortic regurgitation, mild aortic stenosis, mild mitral valve regurgitation. IMPRESSION: This is an 82-year-old gentleman who was admitted to the hospital with abdominal pain. I was asked to consult on the patient's EKG, which was initially read out as third- degree heart block. Again, when I reviewed the EKG itself, it demonstrates second-degree heart block 1 with incomplete right bundle branch block. This is the same EKG that was seen in April. The patient really has no symptoms whatsoever. At this point, I do not think any other cardiac workup is necessary at this point. The patient should get a second troponin just to get a better understanding of what that might be contributing to. However, his major issue is abdominal pain. He is going to get a CAT scan. Further recommendations pending that. [id number]/[facility] #: [id number] MTDHenry
--- NOTE | 2018-08-03 03:28 | CONS ---
CC: Rodrigo Son NP * SURGICAL CONSULTATION REPORT: DATE OF CONSULT: 08/02/18 LOCATION: This surgical consultation done in the emergency room. REQUESTING PHYSICIAN: Bel Retana MD REASON FOR CONSULTATION: Small bowel obstruction. HISTORY OF PRESENT ILLNESS: Mr. Holguin is an 82-year-old gentleman who is 16 days status post laparotomy with small bowel resection for a closed-loop small bowel obstruction with ischemic small bowel. The patient had been admitted to [facility] from 07/17/18 to 07/22/18, at which point he was discharged to home. He had recently been seen in the [facility] office by me last week at which point, his cal were removed and he was noted to have thrush. He did receive nystatin for this and he and his state this has improved. His oral intake was poor due to the thrush at the time I saw him in the office, but there has not been much improvement in his intake according to his . He appears to drink a lot of broth and fluids and has mashed potatoes and squash. His appetite has not been back to normal. He had massive amounts of diarrhea 4 days ago to the point where his said he was not even able to get dressed. That did improve the following day and he has been passing flatus yesterday and even today. He has no nausea or vomiting. He is not complaining of abdominal pain.The states that the patient's main issues have been drooling and feeling cold of late. His accompanies him as does his son and daughter. A CT scan of the abdomen and pelvis performed with oral and IV contrast was reported as consistent with small bowel obstruction with dilated loops with a zone of transition in the left mid abdomen. For this reason, surgical consultation was requested. PHYSICAL EXAM: He appears in no acute distress. His temperature was 98 degrees , his pulse was 55 degrees, respirations 22, O2 sat 96%, and blood pressure 131/ 72. His abdomen has a well-healed midline scar. Bowel sounds are diminished, but present. Abdomen is soft with minimal abdominal tenderness at the midline incision. There is no erythema or drainage. DIAGNOSTIC STUDIES: The CT scan images were reviewed by myself and in conjunction with the radiologist. He is noted to have progression of contrast through the small bowel to the distal small bowel although the distal loops of bowel appear decompressed relative to the proximal loops of bowel. There was stool and gas within the colon. There was no dilation of the stomach. LABORATORY DATA: His WBC is 8.1, hemoglobin is 12.4, platelets 486, there is no shift. Chemistries notable for sodium of 134, chloride of 96, glucose elevated at 109, magnesium 1.8. AST and ALT are low. Albumin is normal at 3.6. Amylase and lipase are normal. His troponin was elevated at 0.04 and a repeat was 0.01. IMPRESSION: An 82-year-old male 16 days status post laparotomy and small bowel resection for closed-loop small bowel obstruction with postoperative course complicated by thrush, which is improving and now it appears there is a partial small bowel obstruction. He does not require any surgical intervention. PLAN: I discussed the findings with the patient, his , son, and daughter. My recommendation is to continue his diet and to maintain hydration. His followup can be with me in the office in 1 to 2 days or if he is to be admitted for his cardiac concerns, then [facility] will follow up tomorrow. The plan was also discussed with Dr. Retana in the emergency room. [id number]/[facility] #: [id number] MADALYN
== END 2018-08-02 21:37 | disposition home or self-care (01) ==
LOC: ED 14:07
DX: G89.18 Other acute postprocedural pain (principal); I44.1 Atrioventricular block, second degree; R10.9 Unspecified abdominal pain; R19.7 Diarrhea, unspecified; Z87.891 Personal history of nicotine dependence; K59.00 Constipation, unspecified; Z87.19 Personal history of other diseases of the digestive system
CPT/HCPCS: 36415; 71045; 74177; 80053; 82140; 82150; 82550; 83605; 83690; 83735; 83880; 84484; 85025; 85610; 85730; 86140; 93005; 96361; 96374; 99283; A9270-GY; Q9967

== ENCOUNTER 2018-08-03 09:57 | Inpatient (IN) | payer MEDICARE, MEDICAID ==
[2018-08-03] MEDS ORDERED: NS 0.9% 500 ML* 500 ML IV ONE (10:18)
--- NOTE | 2018-08-03 10:28 | ED ---
Abdominal Pain/Male - HPI Summary HPI Summary: This patient is an 82 year old M [place] [facility] [place] his with a chief complaint of 06/27 RLQ abd pain with mild radiation to his back since last PM (08/02/18). Pt was discharged from the ED last PM for similar symptoms. PMHx SBO with SHx partial colectomy 2 weeks ago. He endorses nl BM this AM. Pt notes he was able to have coffee and scrambled eggs this AM, with no emesis, although he does endorse decreased appetite since his surgery. He denies V/D, lightheadedness, dizziness, hematuria, fever, and chills. He endorses thrush. Denies any cardiac PMHx. - History of Current Complaint Chief Complaint: EDAbdPain Stated Complaint: ABD PAIN Hx Obtained From: Patient Onset/Duration: Sudden Onset, Lasting Days, Still Present Timing: Constant Severity Initially: Severe Severity Currently: Severe Pain Intensity: 9 Pain Scale Used: 0-10 Numeric Location: Discrete At: RLQ Radiates: Yes Radiates to: Back Aggravating Factor(s): Movement Alleviating Factor(s): Nothing Associated Signs And Symptoms: Positive: Back Pain, Decreased Appetite. Negative: Fever, Cough, Chest Pain, Dizzy, Urinary Symptoms, Vomiting, Diarrhea - Allergies/Home Medications Allergies/Adverse Reactions: Allergies Allergy/AdvReac Type Severity Reaction Status Date / Time No Known Allergies Allergy Verified 08/03/18 10:03 Home Medications: Home Medications Oxycodone HCl 1 tab PO Q4HR PRN 08/03/18 [History Confirmed 08/03/18] PMH/Surg Hx/FS Hx/Imm Hx Endocrine/Hematology History: Reports: Hx Diabetes Cardiovascular History: Reports: Hx Coronary Artery Disease, Hx Hypercholesterolemia, Hx Hypertension, Hx Rheumatic Fever Respiratory History: Reports: Other Respiratory Problems/Disorders - HEIMLICH VALVES FOR PNEUMOTHORACES 08/03 POST MURALI SURGERY GI History: Reports: Hx Gastroesophageal Reflux Disease - on meds pt. states controlled with meds hob up and eating time, Hx Hiatal Hernia - repair 07/2017 dr. stoll inpt. for 1 week post op, Other GI Disorders - diarrhea recently r/t hernia? hernia on left side History: Reports: Other Problems/Disorders - ENLARGED PROSTATE Denies: Hx Renal Disease Musculoskeletal History: Reports: Hx Arthritis Denies: Hx Rheumatoid Arthritis, Hx Osteoporosis Sensory History: Reports: Hx Contacts or Glasses Denies: Hx Deafness, Hx Hearing Aid Opthamlomology History: Reports: Hx Contacts or Glasses EENT History: Denies: Hx Deafness Psychiatric History: Denies: Hx Autism - Surgical History Surgery Procedure, Year, and Place: hiatal hernia repair 07/2017 [facility] [place] [facility], MURALI FUNDOPLICATION AND PLACEMENT OF HEIMLICH VALVES FOR PNEUMOTHORACES Hx Anesthesia Reactions: No - Immunization History Immunizations Up to Date: Yes Infectious Disease History: No Infectious Disease History: Denies: Traveled Outside the [place] in Last 30 Days - Family History Known Family History: Negative: Respiratory Disease, Seizure Disorder, Blood Disorder - Social History Occupation: Retired Lives: With Family Alcohol Use: None Substance Use Type: Reports: None Hx Tobacco Use: Yes Smoking Status (MU): Former Smoker Review of Systems Negative: Fever, Chills Negative: Blurred Vision, Diplopia Negative: Sore Throat, Ear Ache Negative: Chest Pain Negative: Shortness Of Breath, Cough Positive: Abdominal Pain. Negative: Vomiting, Diarrhea Negative: hematuria Positive: Edema Neurological: Other - NEGATIVE: dizziness, lightheadedness Negative: Depressed All Other Systems Reviewed And Are Negative: No Physical Exam - Summary Physical Exam Summary: Appearance: Alert, conversive, nontoxic and thin appearing Skin: Warm, dry, no mottling, no rashes, no contusions. Steristrips in place over incision inferior to umbilicus that is clean, dry, and intact. HEENT: EOMI, PERRL, dry mucous membranes Neck: No masses on the neck, supple Respiratory: Clear to auscultation, breath sounds present, no rales, no rhonchi , no wheezes Cardiovascular: 2/6 systolic ejection murmur, pulses are symmetrical in both lower and upper extremities Abdomen: Soft, non-tender. Steristrips in place over incision inferior to umbilicus that is clean, dry, and intact. Bowel Sounds: Present Musculoskeletal: No CVA tenderness, no obvious deformity, moving all extremities in a grossly normal manner. Trace bilateral pedal edema Neurological: A&Ox3, CN II-XII Intact, moving all extremities symmetrically Psychiatric: Normal affect and mood Triage Information Reviewed: Yes Vital Signs On Initial Exam: Initial Vitals Temp Pulse Resp BP Pulse Ox 99.1 F 61 18 150/77 97 08/03/18 09:59 08/03/18 09:59 08/03/18 09:59 08/03/18 09:59 08/03/18 09:59 Vital Signs Reviewed: Yes Diagnostics - Vital Signs Vital Signs Temp Pulse Resp BP Pulse Ox 08/03/18 09:59 99.1 F 61 18 150/77 97 - Laboratory Result Diagrams: 08/03/18 10:29 08/03/18 10:29 Lab Statement: Any lab studies that have been ordered have been reviewed, and results considered in the medical decision making process. - Radiology AXR Xray Interpretation: Positive (See Comments) Radiology Interpretation Completed By: Radiologist - Small Bowel Obstruction. Dr. Hines has reviewed this report. Abdominal Pain Fem Course/Dx - Course Course Of Treatment: An 82-year-old M presents to the ED with a CC of RLQ abd pain for 1 day. (+) decreased appetite, mild radiation to back, trace bilateral pedal edema. (-) V/D, fever, chills, dizziness, lightheadedness. PMHx SBO, SHx partial colectomy 2 weeks ago. Has been eating very little since surgery, almost exclusively chicken broth and tea, although this AM he endorses eating scrambled eggs. An abd XR reveals a SBO. In the ED course, pt was given nl saline. Pt labs revealed nl lactic acid, but elevated WBC from yesterday (8.1 yesterday to 14.6 today). They also show low H&H, high RDW, high plt count, high neut %, low lymph %, high abs neuts, low abs lymphs, low Na+, low Cl-, high anion gap, and high glucose. Dr. Beatty evaluated pt yesterday, told him he did not need surgery, recommended follow up abd XR. From CT A/P yesterday: Small bowel obstruction. Dilated loops of small bowel with a zone of transition in the left mid abdomen. Cannot totally exclude an internal hernia in this region. Small amount of free fluid is noted in the pelvis. Enlarged prostate. - Diagnoses Provider Diagnoses: Small bowel obstruction - Provider Notifications Discussed Care Of Patient With: Jair Beatty Time Discussed With Above Provider: 12:56 Instructed by Provider To: Other - accepts admission Discharge - Sign-Out/Discharge Documenting (check all that apply): Patient Departure - admit - Discharge Plan Condition: Fair Disposition: ADMITTED TO [facility] - Billing Disposition and Condition Condition: FAIR Disposition: Admitted to [facility] - Attestation Statements Document Initiated by Luis Manuel: Yes Documenting Scribe: Gunnar Fierro Provider For Whom Luis Manuel is Documenting (Include Credential): Dr. Frida Hines MD Scribe Attestation: Gunnar Drake, scribed for Dr. Frida Hines MD on 08/03/18 at 1901. Scribe Documentation Reviewed: Yes Provider Attestation: The documentation as recorded by the Gunnar owens accurately reflects the service I personally performed and the decisions made by me, Dr. Frida Hines MD
[2018-08-03 10:43] LABS: ABS Basophils 0.1 10^3/ul (0-0.2); ABS Eosinophils 0 10^3/ul (0-0.6); ABS Lymphocytes 0.2 10^3/ul (1.0-4.8); ABS Monocytes 0.5 10^3/ul (0-0.8); ABS Neutrophils 13.9 10^3/ul (1.5-7.7); ABS Nucleated RBC 0 10^3/ul; Eosinophil % 0 % (0-6); Hematocrit 40 % (42-52); Hemoglobin 13.5 g/dl (14.0-18.0); Lymphocyte % 1.1 % (25-47); Mean Corpuscular HGB Conc 34 g/dl (31-36); Mean Corpuscular Hemoglobin 30 pg (27-31); Mean Corpuscular Volume 89 fL (80-94); Mean Platelet Volume 7.5 um3 (7.4-10.4); Nucleated Red Blood Cells % 0.1; Platelet Count 529 10^3/ul (150-450); Red Blood Count 4.44 10^6/ul (4.00-5.40); Red Cell Distribution Width 16 % (10.5-15); White Blood Count 14.6 10^3/ul (3.5-10.8)
[2018-08-03 11:15] LABS: EGFR Non-African American 70.1 (>60)
--- NOTE | 2018-08-03 11:36 | RAD ---
HISTORY: eval sbo. ct done yesterday COMPARISONS: CT dated August 02, 2018 VIEWS: Frontal views of the abdomen. FINDINGS: BOWEL: Again noted is diffuse distention and dilatation of the small bowel up to 4.3 cm in caliber. Can't for differences in technique, this similar to the previous CT examination. There is a paucity of distal bowel gas. There is a small amount of oral contrast within the distal small bowel. CALCULI: There are no abnormal calculi. BONES AND SOFT TISSUES: There is a scoliotic curvature of the spine. Degenerative changes are noted. OTHER FINDINGS: The lung bases are clear. There is no subphrenic gas. IMPRESSION: SMALL BOWEL OBSTRUCTION
[2018-08-03] MEDS ORDERED: HYDROmorphone INJ* 0.5 MG/0.5 ML SYRINGE IV PRN (13:39)
[2018-08-03] MEDS ORDERED: Ondansetron INJ* 2 MG/ML VIAL IV PRN (13:39)
--- NOTE | 2018-08-03 13:51 | HP ---
H&P (Free Text) History and Physical: Update to H&P from 07/17/18 (also see Consult from 08/02/18) CC: abdominal pain; partial SBO HPI: 82 yo M returns to ED after evaluation last pm for partial SBO. He has burning abdominal pain today and has not been tolerating po. He had emesis x1 in the ED. He reports flatus. PM/S/F/SH: see prior H&P; expl laparotomy/SBrsxn on 07/17/18. NKDA MEDS:oxycodone; Dyazide; Flomax; Prilosec; Nystatin; Proscar; Tylenol PE: Vital Signs Temp 99.1 F 08/03/18 09:59 Pulse 64 08/03/18 11:42 Resp 21 08/03/18 11:42 BP 180/94 08/03/18 11:42 Pulse Ox 96 08/03/18 11:42 Gen: elderly M; NAD HEENT: NCAT, EOMI Chest: CTA B; RRR Abd: softly distended and mildly tender; incision c/d/i no erythema. Reducible RIH. Ext: warm Intake & Output 08/02/18 08/03/18 08/03/18 18:59 06:59 18:59 Intake Total 500 Balance 500 Weight 116 lb Intake: IV Fluids 500 Laboratory Results - last 24 hr 08/03/18 08/03/18 08/03/18 10:29 10:29 10:29 WBC 14.6 H RBC 4.44 Hgb 13.5 L Hct 40 L MCV 89 MCH 30 MCHC 34 RDW 16 H Plt Count 529 H MPV 7.5 Neut % (Auto) 95.1 H Lymph % (Auto) 1.1 L Foard % (Auto) 3.2 Eos % (Auto) 0 Baso % (Auto) 0.6 Absolute Neuts (auto) 13.9 H Absolute Lymphs (auto) 0.2 L Absolute Monos (auto) 0.5 Absolute Eos (auto) 0 Absolute Basos (auto) 0.1 Absolute Nucleated RBC 0 Nucleated RBC % 0.1 Sodium 133 L Potassium 4.2 Chloride 92 L Carbon Dioxide 26 Anion Gap 15 H BUN 15 Creatinine 1.02 Est GFR ( Amer) 84.8 Est GFR (Non-Af Amer) 70.1 BUN/Creatinine Ratio 14.7 Glucose 186 H Lactic Acid 1.9 Calcium 9.9 Total Bilirubin 0.60 AST 14 ALT 7 Alkaline Phosphatase 49 Total Protein 6.8 Albumin 4.1 Globulin 2.7 Albumin/Globulin Ratio 1.5 Lipase 61 AXR: images reviewed by me. Dilated loops of SB with contrast in distal SB. A/P: Partial SBO. Unable to maintain hydration. Needs admission. Will admit to Obv status. Place NGT to suction. IVF. F/u abd exams and AXR. D/w patient.
[2018-08-03] MEDS ORDERED: Lidocaine 2% JELLY* 6 ML JELLY TOPICAL ONE (15:10)
[2018-08-03] MEDS ORDERED: Lidocaine 2% VISCOUS* 15 ML UDC ONE (15:11)
[2018-08-04 06:15] LABS: EGFR Non-African American 90.2 (>60)
[2018-08-04] MEDS: HYDROmorphone INJ1* 1 MG/ML SYRINGE IV PRN (07:53)
--- NOTE | 2018-08-04 08:50 | RAD ---
HISTORY: SBO COMPARISONS: July 24, 2018 VIEWS: Supine and left lateral decubitus views of the abdomen FINDINGS: BOWEL: Again noted are dilated loops of small bowel with multiple differential air-fluid levels. The appearance is similar to the previous examination. Oral contrast is noted within the colon. CALCULI: There are no abnormal calculi. BONES AND SOFT TISSUES: There is diffuse osteopenia. Degenerative changes are noted of the spine. OTHER FINDINGS: The lung bases are clear. There is no subphrenic gas. A gastric tube is noted with the tip just distal to the GE junction. IMPRESSION: SMALL BOWEL OBSTRUCTIVE PATTERN. ORAL CONTRAST IS NOTED WITHIN THE COLON SUGGESTIVE OF PARTIAL OR INTERMITTENT OBSTRUCTION.
[2018-08-04 12:54] LABS: ABS Basophils 0 10^3/ul (0-0.2); ABS Eosinophils 0 10^3/ul (0-0.6); ABS Lymphocytes 0.5 10^3/ul (1.0-4.8); ABS Monocytes 0.8 10^3/ul (0-0.8); ABS Neutrophils 8.3 10^3/ul (1.5-7.7); ABS Nucleated RBC 0 10^3/ul; Eosinophil % 0.1 % (0-6); Hematocrit 35 % (42-52); Hemoglobin 11.6 g/dl (14.0-18.0); Lymphocyte % 5.6 % (25-47); Mean Corpuscular HGB Conc 34 g/dl (31-36); Mean Corpuscular Hemoglobin 30 pg (27-31); Mean Corpuscular Volume 90 fL (80-94); Mean Platelet Volume 7.7 um3 (7.4-10.4); Nucleated Red Blood Cells % 0.1; Platelet Count 426 10^3/ul (150-450); Red Blood Count 3.85 10^6/ul (4.00-5.40); Red Cell Distribution Width 16 % (10.5-15); White Blood Count 9.6 10^3/ul (3.5-10.8)
--- NOTE | 2018-08-04 12:58 | PN ---
Progress Note - Progress Note Date of Service: 08/04/18 Note: S: Also seen by Dr. Beatty. Less pain. NG advanced by Dr. Beatty w/ add'l output. No reported flatus or BM. Has not voided since last pm. Also not been up to ambulate. O: Vital Signs - 8 hr 08/04/18 08/04/18 08/04/18 07:30 07:53 08:00 Temperature 99.1 F Pulse Rate 54 Respiratory 16 16 16 Rate Blood Pressure 140/62 (mmHg) O2 Sat by Pulse 97 Oximetry 08/04/18 08/04/18 08/04/18 08:10 09:14 11:27 Temperature 98.4 F Pulse Rate 54 55 Respiratory 19 16 17 Rate Blood Pressure 118/60 144/56 (mmHg) O2 Sat by Pulse 95 Oximetry Intake and Output Last 24 Hours 08/02/18 08/03/18 08/04/18 08/05/18 06:59 06:59 06:59 06:59 Intake Total 1478 30 Output Total 500 850 Balance 978 -820 Weight 115 lb 6.4 oz Intake: IV Fluids 500 IVPB 978 Oral 0 0 NG Tube Irrigate Amount 30 Output: NG Tube Drainage Amount 850 Urine 500 Other: # Bowel Movements 0 Gen: NAD, sitting up in bed; NG in place draining dark fluid Heart: reg Lungs: clear ant Abd: min distended; +BS; somewhat firm; min tender; very tympanitic; Right inguinal hernia, reducible, nontender Labs: Laboratory Tests 08/03/18 08/04/18 08/04/18 10:29 05:09 12:31 WBC 14.6 H 9.6 Hgb 13.5 L 11.6 L Neut % (Auto) 95.1 H 86.3 H Sodium 136 Potassium 3.7 BUN 14 Creatinine 0.82 Glucose 114 H AXR today: Order Information: ABDOMEN (COMPLETE) 2 [facility] Accession Number: [id number] CPT: 62769 HISTORY: SBO COMPARISONS: July 24, 2018 VIEWS: Supine and left lateral decubitus views of the abdomen FINDINGS: BOWEL: Again noted are dilated loops of small bowel with multiple differential air-fluid levels. The appearance is similar to the previous examination. Oral contrast is noted within the colon. CALCULI: There are no abnormal calculi. BONES AND SOFT TISSUES: There is diffuse osteopenia. Degenerative changes are noted of the spine. OTHER FINDINGS: The lung bases are clear. There is no subphrenic gas. A gastric tube is noted with the tip just distal to the GE junction. IMPRESSION: SMALL BOWEL OBSTRUCTIVE PATTERN. ORAL CONTRAST IS NOTED WITHIN THE COLON SUGGESTIVE OF PARTIAL OR INTERMITTENT OBSTRUCTION. A: partial SBO P: Cont NG; IVF; bowel rest
[2018-08-05] MEDS: HYDROmorphone INJ1* 1 MG/ML SYRINGE IV PRN ×4 (03:32→23:47)
--- NOTE | 2018-08-05 10:46 | PN ---
Progress Note - Progress Note Date of Service: 08/05/18 SOAP: Subjective:HOSPITAL DAY 3,PSBO []no flatus or stool;voiding ok now;no nausea;reports mild LLQ abd pain Objective:afeb;VSS;lungs:clear bilat;heart:RRR;abd:hyperactive bs,distended, tympanitic,tender LLQ,no guarding;ext:no edema,nontender;NG output 650ml;urine output not recorded but pt reports better flow and no dysuria [] Assessment:psbo persists [] Plan:discussed with Dr Beatty,AXR,CBC and P3 this morning []
--- NOTE | 2018-08-05 12:08 | RAD ---
Indication: Small bowel obstruction. Flat and decubitus views of the abdomen demonstrates persistent small bowel dilatation. A small amount of contrast is noted in the right colon. No free air is identified. Overall appearance appears to be unchanged from August 04, 2018. IMPRESSION: Dilated small bowel loops with contrast in the right colon. Small bowel obstruction is not excluded. Findings are similar to that present on August 04, 2018.
[2018-08-05 12:42] LABS: ABS Basophils 0 10^3/ul (0-0.2); ABS Eosinophils 0 10^3/ul (0-0.6); ABS Lymphocytes 0.6 10^3/ul (1.0-4.8); ABS Monocytes 0.7 10^3/ul (0-0.8); ABS Nucleated RBC 0 10^3/ul; Eosinophil % 0.1 % (0-6); Hematocrit 35 % (42-52); Hemoglobin 11.9 g/dl (14.0-18.0); Lymphocyte % 7.9 % (25-47); Mean Corpuscular HGB Conc 34 g/dl (31-36); Mean Corpuscular Hemoglobin 30 pg (27-31); Mean Corpuscular Volume 90 fL (80-94); Nucleated Red Blood Cells % 0; Platelet Count 379 10^3/ul (150-450); Red Blood Count 3.93 10^6/ul (4.00-5.40); Red Cell Distribution Width 16 % (10.5-15); White Blood Count 7.3 10^3/ul (3.5-10.8)
[2018-08-05] MEDS: NS 0.9% 1000 ML* 1,000 ML IV SCH ×2 (15:19→23:43)
--- NOTE | 2018-08-05 21:54 | CONS ---
CC: Dr. Beatty CONSULTATION REPORT: DATE OF CONSULT: 08/05/18 DATE OF ADMISSION: 08/03/18 PATIENT OF: Jair Beatty MD CONSULTED TO: David Cat MD PRIMARY CARE PROVIDER: Rodrigo Son NP CHIEF COMPLAINT: Abdominal pain, nausea, and vomiting. REASON FOR CONSULTATION: Medical comanagement. HISTORY OF PRESENT ILLNESS: Mr. Roberts is an 82-year-old gentleman with past medical history sig nificant for hypertension, benign prostatic hypertrophy, hyperlipidemia, and mild aortic stenosis, wh o is admitted to surgical services 2 days ago with complaints of nausea, vomiting, and abdominal pain . The patient is well known to us from prior admission back in the end of June when he had juany lar complaints and found to have bowel obstruction for which he was taken to the operating room by Dr Blair Beatty on 07/17/18 where he had an exploratory laparotomy with lysis of adhesion and small bowel r esection. The patient was in the hospital for approximately a week and slowly improved and tolerated diet for which he was discharged home. A couple of weeks later, he presented to the emergency room one night with complaints of nausea and vomiting and inability to tolerate any p.o. intake. He had a bdominal films that was consistent with partial small bowel obstruction; however, he continued to pas s flatus and tolerated sips of water for which he was seen for surgical consultation that night and w as then discharged home. The patient returned on the following day with similar complaints and was f ound to have consistent small bowel obstruction and he was passing small amount of flatus; however, u nable to tolerate any p.o. intake at that time for which he was admitted under surgical services and an NG tube was placed for decompression. The patient has a history of multiple abdominal surgeries p rior to that including inguinal hernia repair as well as a large paraesophageal hernia repair with Ni ssen fundoplication that was done last year. Given his history of hypertension and hyperlipidemia, w e were asked to see the patient to follow along with the patient regarding his medical comorbidities. At the time of consultation today, the patient is lying comfortable in bed and he denied any chest pain, shortness of breath, weakness, numbness, abdominal pain, nausea or vomiting. He has had a good output from his NG tube so far with marked improvement of his abdominal distention. He continued to pass very small amount of flatus; however, has not had any bowel movement in almost a week. PAST MEDICAL HISTORY: As mentioned above, significant for: 1. Hypertension. 2. Hyperlipidemia. 3. Benign prostatic hypertrophy. 4. Osteoarthritis. 5. Mild aortic stenosis. 6. Recurrent bowel obstruction. PAST SURGICAL HISTORY: Significant for: 1. Left inguinal hernia repair. 2. Paraesophageal hernia repair with Marielle fundoplication and bilateral Heimlich valve placement fo r bilateral pneumothoraces back in July of last year. 3. He is status post exploratory laparotomy with lysis of adhesion and small bowel resection on 06/20 . CURRENT MEDICATIONS: His medications at home include: 1. Tylenol 650 mg p.o. q.6 hours as needed for fever or pain. 2. Proscar 5 mg p.o. q.h.s. 3. Nystatin swish and swallow 5 mL p.o. q.6 hours. 4. Omeprazole 20 mg p.o. daily. 5. Oxycodone 5 mg 1 tablet p.o. q.4 hours as needed for pain. 6. Flomax 0.4 mg p.o. daily. 7. Triamterene/hydrochlorothiazide 37.5/25 mg 1 tablet p.o. q.a.m. ALLERGIES: He has no known drug allergies. FAMILY HISTORY: His mother in her 80s from Alzheimer's disease and his dad , unknown ab out his health history. SOCIAL HISTORY: The patient is a former smoker, who quit over 50 years ago. He denies alcohol intak e. 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 He is and his , Stephanie, is the healthcare pr oxy carrier and he wishes to be a full code. REVIEW OF SYSTEMS: See HPI, otherwise 14 points review of systems were examined and they were essent ially negative. PHYSICAL EXAM: General: He is a pleasant, frail older gentleman, in no acute distress or discomfort at the time of consultation. Vitals reveal temperature of 98.0, heart rate of 52, blood pressure 14 5/66, respirations of 16 with O2 sat of 97% on room air. HEENT: Head is normocephalic, atraumatic. Sclerae anicteric. PERRLA, EOMs intact. Oropharynx is pink and moist. Neck: Supple. Trachea midl ine. No cervical adenopathy or thyromegaly. Lungs: Clear to auscultation bilaterally. Heart: Reg ular rate and rhythm. Normal S1 and S2 without rubs, murmurs or gallops. Back: With normal curvatu re. No CVA tenderness. Abdomen: Soft and nontender. There is mild distention noted throughout the abdomen with hypoactive bowel sounds. Again, there was no tenderness noted in any of the quadrants. There is a small reducible right inguinal hernia noted. A midline incision from prior surgery is we ll healed. Extremities: Without cyanosis, clubbing of edema. Neurologic: He is awake, alert, and oriented to x3. Sensation is intact and hand enrober tender is equal bilaterally. Tongue is midline and crani al nerves II through XII are grossly intact. Rectal Exam: Deferred at this time. DIAGNOSTIC STUDIES/LAB DATA: CBC today with white count of 7000, hemoglobin of 11.9, hematocrit 35, and platelets of 379. His chemistry panel with sodium of 140, potassium 3.8, chloride 96, CO2 of 34, BUN of 16, and creatinine of 0.9. His glucose is 91. Accessory diagnostic data: Abdominal x-rays done this morning revealed dilated small bowel loops wit h contrast in the right colon with evidence of small bowel obstruction and the findings were similar to the x-ray done on the day prior. IMPRESSION: An 82-year-old gentleman with past medical history significant for hypertension, hyperli pidemia, gastroesophageal reflux disease, mild aortic stenosis, and previous bowel surgeries, who pre sented to the emergency room with complaints of abdominal pain, nausea, and vomiting and found to hav e partial small bowel obstruction for which he was admitted under surgical services for decompression with nasogastric tube placement and we were asked to follow up by the hospitalist team to consider m edical comanagement for the following: ASSESSMENT AND PLAN: 1. Small bowel obstruction. Management is by surgical team. We will recommend to continue with NG tube placement for decompression and keep him n.p.o. for the time being. If his obstruction would no t resolve in the next 48 hours, I anticipate the patient might need a surgical intervention at that p oint. We will continue to follow along with the surgical team. The patient had an EKG done as well as an echocardiogram with good ejection fraction last month and we will continue to follow if medical clearance is needed in case of surgical intervention is indicated. 2. Hypertension. The patient's blood pressure is mildly elevated at that point; however, we will co ntinue to hold his blood pressure medicine given his n.p.o. status and continue his IV hydration. 3. Benign prostatic hypertrophy. We will continue to hold his finasteride and Flomax. He has been voiding with no problem. We will add a bladder scan as needed and we can straight cath him or either use a Santillan catheter placement for accurate assessment of his I's and O's. 4. Hyperlipidemia. We will hold his statin therapy for the time being given his n.p.o. status. 5. DVT prophylaxis. He is at high risk and we will place him on subcu heparin. 6. Code status. The patient wishes to be a full code. TIME SPENT: Approximately 50 minutes were spent consulting on this patient for which greater than 50 % of that time on taking history and performing physical exam. I went on and discussed the case with my attending, who agreed to plan of care, and will follow him u p accordingly. ALBERT GIBBS [id number]/[facility] #: [id number]
[2018-08-05] MEDS: Heparin VIAL(*) 5000 UNITS/ML VIAL (FIVE THOUSAND) SUBCUT SCH (22:13)
[2018-08-06] MEDS: Heparin VIAL(*) 5000 UNITS/ML VIAL (FIVE THOUSAND) SUBCUT SCH ×3 (05:23→22:24)
[2018-08-06] MEDS: NS 0.9% 1000 ML* 1,000 ML IV SCH ×2 (08:07→16:50)
--- NOTE | 2018-08-06 09:53 | PN ---
Progress Note - Progress Note Date of Service: 08/06/18 SOAP: Subjective: He feels the same to a bit better today. No flatus still. Pain controlled. Objective: Vital Signs Temp 98.2 F 08/06/18 07:29 Pulse 54 08/06/18 07:29 Resp 17 08/06/18 07:29 BP 162/63 08/06/18 07:29 Pulse Ox 97 08/06/18 07:29 Gen: NAD Abd: +BS; incision well healed; soft with mild tenderness RLQ. Reducible RIH. Intake & Output 08/05/18 08/06/18 08/06/18 18:59 06:59 18:59 Intake Total 295 0 1030 Output Total 100 1000 200 Balance 195 -1000 830 Intake: IV Fluids 1030 NS (0.9%) 1030 NS (0.9%) 40 meq KCL 0 IVPB 295 LR 295 Oral 0 0 0 Output: NG Tube Drainage Amount 600 Urine 100 400 200 Assessment: Early postop pSBO. s/p exlap/SBRsxn for closed loop obstruction. Minimal changes. Plan: Continue NGT; IVF. F/u labs. AXR in am. D/E patient. Appreciate Hospitalist f/u.
[2018-08-06 12:40] LABS: EGFR Non-African American 92.8 (>60)
--- NOTE | 2018-08-06 15:22 | PN ---
Subjective Date of Service: 08/06/18 Interval History: Mr. Roberts reports doing about the same. Denies abdominal pain, distention, nausea, vomiting, fever or chills. Has not passed any flatus today, however noticed a lot of "belly growling" noise. Still continue to have a good NG tube output. He has no complaints today. Family History: Unchanged from Admission Social History: Unchanged from Admission Past Medical History: Unchanged from Admission Objective Active Medications: Acetaminophen (Tylenol Tab*) 650 mg PO Q6H PRN PRN Reason: TEMPERATURE > 101.5 Heparin Sodium (Porcine) (Heparin Vial(*)) 5,000 units SUBCUT Q8HR [facility] Last Admin: 08/06/18 14:23 Dose: 5,000 units Hydromorphone HCl (Dilaudid Inj1s*) 0.5 mg IV Q1H PRN PRN Reason: Pain - severe Last Admin: 08/05/18 23:47 Dose: 0.5 mg Sodium Chloride (Ns 0.9% 1000 Ml*) 1,000 mls @ 125 mls/hr IV PER RATE [facility] Last Admin: 08/06/18 08:07 Dose: 125 mls/hr Ondansetron HCl (Zofran Inj*) 4 mg IV Q4H PRN PRN Reason: NAUSEA/VOMITING Last Admin: 08/04/18 07:52 Dose: 4 mg Vital Signs - 8 hr 08/06/18 08/06/18 08/06/18 07:29 08:00 11:44 Temperature 98.2 F 98.7 F Pulse Rate 54 50 Respiratory 17 18 17 Rate Blood Pressure 162/63 153/63 (mmHg) O2 Sat by Pulse 97 98 Oximetry Oxygen Devices in Use Now: None Appearance: Appears comfortable and in NAD Eyes: No Scleral Icterus, PERRLA Ears/Nose/Mouth/Throat: Clear Oropharnyx, Mucous Membranes Moist Neck: NL Appearance and Movements; NL JVP, Trachea Midline Respiratory: Symmetrical Chest Expansion and Respiratory Effort, Clear to Auscultation Cardiovascular: NL Sounds; No Murmurs; No JVD, RRR Abdominal: - - Abdomen soft and less distended compared to exam yesterday. Minimal midline tenderness without guarding or rigidity. Extremities: No Edema Neurological: Alert and Oriented x 3 Result Diagrams: 08/05/18 11:57 08/06/18 12:15 Additional Lab and Data: . Microbiology and Other Data: . Diagnostic Imaging: . EKG Data: . Assess/Plan/Problems-Billing Assessment: An 82 y/o male with PMH HTN, HLD, GERD and recent exploratory laparotomy with small bowel resection on 07/17/18, who was admitted with small bowel obstruction , likely secondary to adhesions. - Patient Problems (1) SBO (small bowel obstruction) Current Visit: No Status: Acute Comment: - S/P laporotmy with small bowel resection 07/17/18. Abdominal xray yesterday with no significant improvement. - Management per surgery, plans to continue NG tube decompression - IVF hydration - If no improvement over the weekend, may consider PICC line placement and intiate TPN (2) HTN (hypertension) Current Visit: No Status: Acute Comment: - Mildly hypertensive today - Continue NPO status - Monitor BP (3) GERD (gastroesophageal reflux disease) Current Visit: Yes Status: Acute Comment: - Continue PPI coverage (4) BPH (benign prostatic hyperplasia) Current Visit: Yes Status: Acute Comment: - Voiding with no issues - No symptoms suggesting urinary retention (5) Aortic stenosis Current Visit: No Status: Acute Comment: - Asymptomatic, moderate on ECHO 08/13. (6) DVT prophylaxis Current Visit: No Status: Acute Comment: - SubQ Heparin (7) Full code status Current Visit: Yes Status: Acute Status and Disposition: Inpatient under surgical services. Anticipate discharge when medically stable.
[2018-08-06] MEDS: HYDROmorphone INJ1* 1 MG/ML SYRINGE IV PRN (22:21)
[2018-08-07] MEDS: NS 0.9% 1000 ML* 1,000 ML IV SCH (01:18)
[2018-08-07] MEDS: Heparin VIAL(*) 5000 UNITS/ML VIAL (FIVE THOUSAND) SUBCUT SCH ×3 (05:52→22:15)
--- NOTE | 2018-08-07 08:16 | RAD ---
HISTORY: f/u SBO COMPARISONS: August 05, 2018 VIEWS: Frontal supine and upright views of the abdomen. FINDINGS: BOWEL: Again noted are dilated loops of small bowel measuring up to 4.7 cm with differential air-fluid levels. Oral contrast is noted within the colon, demonstrating multiple diverticula of the distal colon. The gastric tube is noted with the tip in the region of the pylorus. CALCULI: There are no abnormal calculi. BONES AND SOFT TISSUES: There is a scoliotic curvature of the spine. Degenerative changes are noted. OTHER FINDINGS: The lung bases are clear. There is no subphrenic gas. IMPRESSION: PERSISTENT SMALL BOWEL OBSTRUCTIVE PATTERN
[2018-08-07] MEDS: Pantoprazole IV* 40 MG IV SCH (08:26)
--- NOTE | 2018-08-07 10:07 | PN ---
Progress Note - Progress Note Date of Service: 08/07/18 SOAP: Subjective: Had small BM and reports some flatus. Pain is about the same. Objective: Vital Signs Temp 98.1 F 08/07/18 07:11 Pulse 53 08/07/18 07:11 Resp 18 08/07/18 07:43 BP 160/58 08/07/18 07:11 Pulse Ox 97 08/07/18 07:11 Gen: NAD Abd: +BS; soft; less tender; +tympany. Intake & Output 08/06/18 08/07/18 08/07/18 18:59 06:59 18:59 Intake Total 1995 1002 0 Output Total 1150 665 Balance 846 337 0 Intake: IV Fluids 1995 1002 NS (0.9%) 1995 1002 NS (0.9%) 40 meq KCL 0 Oral 0 0 0 Output: NG Tube Drainage Amount 750 560 Urine 400 105 Other: Estimated Void Medium # Voids 1 Laboratory Results - last 24 hr 08/06/18 12:15 Sodium 141 Potassium 3.7 Chloride 100 L Carbon Dioxide 29 Anion Gap 12 H BUN 15 Creatinine 0.80 Est GFR ( Amer) 112.3 Est GFR (Non-Af Amer) 92.8 BUN/Creatinine Ratio 18.8 Glucose 84 Calcium 8.4 L AXR reviewed; no signif changes. Assessment: Early postop pSBO. s/p exlap/SBRsxn for closed loop obstruction. Slight improvement. Plan: Cont current tx. Incr ambulation.
[2018-08-07] MEDS: D5W 1/2 NS KCl 20 Meq 1000 ML* 1,000 ML IV SCH ×2 (10:26→20:17)
--- NOTE | 2018-08-07 13:47 | PN ---
Subjective Date of Service: 08/07/18 Interval History: pt reports two small formed BMs today. Denies abdominal pain. No nausea or vomiting. Denies fever ro chills. Reports he feels that he is doing "a little better today". Family History: Unchanged from Admission Social History: Unchanged from Admission Past Medical History: Unchanged from Admission Objective Active Medications: Acetaminophen (Tylenol Tab*) 650 mg PO Q6H PRN PRN Reason: TEMPERATURE > 101.5 Heparin Sodium (Porcine) (Heparin Vial(*)) 5,000 units SUBCUT Q8HR [facility] Last Admin: 08/07/18 05:52 Dose: 5,000 units Hydromorphone HCl (Dilaudid Inj1s*) 0.5 mg IV Q1H PRN PRN Reason: Pain - severe Last Admin: 08/06/18 22:21 Dose: 0.5 mg Potassium Chloride/Dextrose (D5w 1/2 Ns Kcl 20 Meq 1000 Ml*) 1,000 mls @ 100 mls/hr IV PER RATE [facility] Last Admin: 08/07/18 10:26 Dose: 100 mls/hr Ondansetron HCl (Zofran Inj*) 4 mg IV Q4H PRN PRN Reason: NAUSEA/VOMITING Last Admin: 08/04/18 07:52 Dose: 4 mg Pantoprazole Sodium (Protonix Iv*) 40 mg IV DAILY [facility] Last Admin: 08/07/18 08:26 Dose: 40 mg Vital Signs - 8 hr 08/07/18 08/07/18 07:11 07:43 Temperature 98.1 F Pulse Rate 53 Respiratory 17 17 Rate Blood Pressure 160/58 (mmHg) O2 Sat by Pulse 97 Oximetry Oxygen Devices in Use Now: None Appearance: thin elderly male A+O x3 in NAD Eyes: No Scleral Icterus, PERRLA Ears/Nose/Mouth/Throat: Mucous Membranes Moist Neck: NL Appearance and Movements; NL JVP Respiratory: Symmetrical Chest Expansion and Respiratory Effort Cardiovascular: NL Sounds; No Murmurs; No JVD, RRR, No Edema Abdominal: - - soft. NT. BS+. no guarding Extremities: No Edema, No Clubbing, Cyanosis Skin: No Rash or Ulcers, No Nodules or Sclerosis Neurological: Alert and Oriented x 3, NL Muscle Strength and Tone Lines/Tubes/Other Access: Clean, Dry and Intact Peripheral IV Nutrition: Taking PO's Result Diagrams: 08/05/18 11:57 08/06/18 12:15 Additional Lab and Data: . Microbiology and Other Data: . Diagnostic Imaging: . EKG Data: . Assess/Plan/Problems-Billing Assessment: An 82 y/o male with PMH HTN, HLD, GERD and recent exploratory laparotomy with small bowel resection on 07/17/18, who was admitted with small bowel obstruction , likely secondary to adhesions. - Patient Problems (1) SBO (small bowel obstruction) Comment: - Slight improvement today - S/P laporotmy with small bowel resection 07/17/18. - Management per surgery, plans to continue NG tube decompression - IVF hydration - CBC, BMP in am (2) HTN (hypertension) Comment: - Mildly hypertensive today - Hold home PO meds. Add hydralyzine prn (3) BPH (benign prostatic hyperplasia) Comment: - Voiding with no issues - No symptoms suggesting urinary retention (4) GERD (gastroesophageal reflux disease) Comment: - Continue PPI coverage (5) Aortic stenosis Comment: - Asymptomatic, moderate on ECHO 08/13. (6) Full code status (7) DVT prophylaxis Comment: - SubQ Heparin Status and Disposition: Inpatient under surgical services. Anticipate discharge when medically stable.
[2018-08-08] MEDS: Heparin VIAL(*) 5000 UNITS/ML VIAL (FIVE THOUSAND) SUBCUT SCH ×3 (05:49→22:00)
[2018-08-08] MEDS: D5W 1/2 NS KCl 20 Meq 1000 ML* 1,000 ML IV SCH (06:20)
[2018-08-08 06:53] LABS: ABS Basophils 0 10^3/ul (0-0.2); ABS Eosinophils 0.1 10^3/ul (0-0.6); ABS Lymphocytes 0.8 10^3/ul (1.0-4.8); ABS Monocytes 0.6 10^3/ul (0-0.8); ABS Neutrophils 5.9 10^3/ul (1.5-7.7); ABS Nucleated RBC 0 10^3/ul; Eosinophil % 0.7 % (0-6); Hematocrit 32 % (42-52); Lymphocyte % 10.3 % (25-47); Mean Corpuscular HGB Conc 34 g/dl (31-36); Mean Corpuscular Hemoglobin 31 pg (27-31); Mean Corpuscular Volume 89 fL (80-94); Nucleated Red Blood Cells % 0; Platelet Count 235 10^3/ul (150-450); Red Cell Distribution Width 16 % (10.5-15); White Blood Count 7.4 10^3/ul (3.5-10.8)
[2018-08-08] MEDS: Pantoprazole IV* 40 MG IV SCH (08:00)
--- NOTE | 2018-08-08 10:42 | PN ---
Progress Note - Progress Note Date of Service: 08/08/18 SOAP: Subjective: Feels about the same. No more flatus or BM. Objective: Vital Signs Temp 99.4 F 08/08/18 07:26 Pulse 52 08/08/18 07:26 Resp 16 08/08/18 08:00 BP 157/66 08/08/18 07:26 Pulse Ox 96 08/08/18 07:26 NAD Abd: distended; soft; min tender; scant BS. Intake & Output 08/07/18 08/08/18 08/08/18 18:59 06:59 18:59 Intake Total 0 1967 Output Total 500 1160 90 Balance -500 808 -90 Intake: IV Fluids 1967 D5W 1/2 NS 20 meq KCL 1967 Oral 0 0 Output: NG Tube Drainage Amount 400 810 Urine 100 350 90 Other: Estimated Void Large # Voids 1 Laboratory Results - last 24 hr 08/08/18 08/08/18 06:29 06:29 WBC 7.4 RBC 3.60 L Hgb 11.0 L Hct 32 L MCV 89 MCH 31 MCHC 34 RDW 16 H Plt Count 235 MPV 8.0 Neut % (Auto) 80.3 Lymph % (Auto) 10.3 L [place] % (Auto) 8.3 H Eos % (Auto) 0.7 Baso % (Auto) 0.4 Absolute Neuts (auto) 5.9 Absolute Lymphs (auto) 0.8 L Absolute Monos (auto) 0.6 Absolute Eos (auto) 0.1 Absolute Basos (auto) 0 Absolute Nucleated RBC 0 Nucleated RBC % 0 Sodium 143 Potassium 3.3 L Chloride 107 Carbon Dioxide 31 Anion Gap 5 BUN 9 Creatinine 0.75 Est GFR ( Amer) 120.9 Est GFR (Non-Af Amer) 100.0 BUN/Creatinine Ratio 12.0 Glucose 156 H Calcium 8.0 L Magnesium 1.7 L Assessment: Early postop pSBO. s/p exlap/SBRsxn for closed loop obstruction. Given lack of improvement and prolonged NPO status (was not eating normally prior to admission) he will need TPN. Plan: Cont NGT. PICC for TPN to start today. AXR tomorrow.
[2018-08-08] MEDS ORDERED: Magnesium Sulfate 2 GM IV* 2 GM/50 ML BAG IVPB ONE (10:54)
--- NOTE | 2018-08-08 10:56 | PN ---
Subjective Date of Service: 08/08/18 Interval History: Patient rports he feels the same as yesterday. No further BMs today. He denies any abdominal pain. No Nausea. Denies fever or chills. Family History: Unchanged from Admission Social History: Unchanged from Admission Past Medical History: Unchanged from Admission Objective Active Medications: Acetaminophen (Tylenol Tab*) 650 mg PO Q6H PRN PRN Reason: TEMPERATURE > 101.5 Heparin Sodium (Porcine) (Heparin Vial(*)) 5,000 units SUBCUT Q8HR [facility] Last Admin: 08/08/18 05:49 Dose: 5,000 units Hydralazine HCl (Apresoline Iv*) 5 mg IV SLOW PU Q6H PRN PRN Reason: BLOOD PRESSURE Hydromorphone HCl (Dilaudid Inj1s*) 0.5 mg IV Q1H PRN PRN Reason: Pain - severe Last Admin: 08/06/18 22:21 Dose: 0.5 mg Potassium Chloride/Dextrose (D5w 1/2 Ns Kcl 20 Meq 1000 Ml*) 1,000 mls @ 100 mls/hr IV PER RATE [facility] Stop: 08/08/18 17:00 Last Admin: 08/08/18 06:20 Dose: 100 mls/hr Dextrose 500 ml/ Amino Acids 850 ml/ Sterile Water 150 ml/Fat Emulsion Intravenous 250 ml/ Sodium Chloride 100 meq/Potassium Chloride 50 meq/Potassium Phosphate 15 mmole/Calcium Gluconate 15 meq/Magnesium Sulfate 10 meq/ Multivitamins 10 ml/ Trace Metals 1 ml/ Phytonadione /Insulin Human Regular / Sodium Acetate / Famotidine /Nutrition (Parenteral) 1,850.721 mls @ 77.113 mls/ hr [facility] [address] [facility] Magnesium Sulfate (Magnesium Sulfate 2 Gm Iv*) 2 gm in 50 mls @ 50 mls/hr IVPB ONCE ONE Stop: 08/08/18 11:53 Ondansetron HCl (Zofran Inj*) 4 mg IV Q4H PRN PRN Reason: NAUSEA/VOMITING Last Admin: 08/04/18 07:52 Dose: 4 mg Pantoprazole Sodium (Protonix Iv*) 40 mg IV DAILY [facility] Last Admin: 08/08/18 08:00 Dose: 40 mg Vital Signs - 8 hr 08/08/18 08/08/18 08/08/18 03:00 07:26 08:00 Temperature 99.2 F 99.4 F Pulse Rate 53 52 Respiratory 16 16 16 Rate Blood Pressure 160/68 157/66 (mmHg) O2 Sat by Pulse 94 96 Oximetry Oxygen Devices in Use Now: None Appearance: 82 yo male sitting up in bed A+O x3 in NAD Eyes: No Scleral Icterus, PERRLA Ears/Nose/Mouth/Throat: Mucous Membranes Moist Respiratory: Symmetrical Chest Expansion and Respiratory Effort, Clear to Auscultation Cardiovascular: NL Sounds; No Murmurs; No JVD, RRR, No Edema Abdominal: NL Sounds; No Tenderness; No Distention Extremities: No Edema, No Clubbing, Cyanosis Skin: No Rash or Ulcers, No Nodules or Sclerosis Neurological: Alert and Oriented x 3, NL Sensation, NL Muscle Strength and Tone Lines/Tubes/Other Access: Clean, Dry and Intact Naso-enteral Tube - draining green/brown liquid, Clean, Dry and Intact PICC Line Nutrition: Taking PO's Result Diagrams: 08/08/18 06:29 08/08/18 06:29 Additional Lab and Data: . Microbiology and Other Data: . Diagnostic Imaging: . EKG Data: . Assess/Plan/Problems-Billing Assessment: An 82 y/o male with PMH HTN, HLD, GERD and recent exploratory laparotomy with small bowel resection on 07/17/18, who was admitted with small bowel obstruction , likely secondary to adhesions. - Patient Problems (1) SBO (small bowel obstruction) Comment: - S/P laporotmy with small bowel resection 07/17/18. - Management per surgery, plans to continue NG tube decompression - IVF hydration - CBC, BMP in am - TPN started per surgery - PICC line to be placed (2) Electrolyte abnormality Comment: - replace mg+ - check lytes in am (3) HTN (hypertension) Comment: - Mildly hypertensive today - Hold home PO meds. Continue hydralyzine prn (4) BPH (benign prostatic hyperplasia) Comment: - Voiding with no issues - No symptoms suggesting urinary retention (5) GERD (gastroesophageal reflux disease) Comment: - Continue PPI coverage (6) Aortic stenosis Comment: - Asymptomatic, moderate on ECHO 08/13. (7) Full code status (8) DVT prophylaxis Comment: - SubQ Heparin Status and Disposition: Inpatient under surgical services. Anticipate discharge when medically stable.
[2018-08-08 12:00] LABS: EGFR Non-African American 91.5 (>60)
--- NOTE | 2018-08-08 16:58 | RAD ---
HISTORY: verify PICC placement COMPARISONS: Abdomen series dated August 07, 2018 VIEWS: 1: frontal AP view of the chest at 4:40 PM FINDINGS: LINES AND TUBES: A gastric tube is noted with the tip in the upper abdomen. The tip position is indeterminate with respect to the pylorus. A left-sided PICC line is noted with the tip overlying the superior vena cava. CARDIOMEDIASTINAL SILHOUETTE: The cardiomediastinal silhouette is normal for portable technique. PLEURA: The costophrenic angles are sharp. No pleural abnormalities are noted. LUNG PARENCHYMA: There is hyperinflation with emphysematous change. There is platelike atelectasis of the right lung base. ABDOMEN: Again noted are dilated loops of small bowel consistent with small bowel obstruction. BONES AND SOFT TISSUES: There is diffuse osteopenia. Generative changes are noted of the spine and right shoulder. IMPRESSION: 1. LINES AND TUBES ABOVE. 2. EMPHYSEMA. 3. SMALL BOWEL OBSTRUCTION.
[2018-08-08] MEDS: TPN* 24 HR with Dextrose 50% Water* 500 ML, Amino Acid Infusion 10%* 850 ML, Sterile Wa... CENTR SCH ×12 (17:44)
[2018-08-09 05:31] LABS: ABS Basophils 0 10^3/ul (0-0.2); ABS Eosinophils 0.1 10^3/ul (0-0.6); ABS Lymphocytes 0.7 10^3/ul (1.0-4.8); ABS Monocytes 0.6 10^3/ul (0-0.8); ABS Neutrophils 7.1 10^3/ul (1.5-7.7); ABS Nucleated RBC 0 10^3/ul; Hematocrit 35 % (42-52); Hemoglobin 11.9 g/dl (14.0-18.0); Lymphocyte % 7.8 % (25-47); Mean Corpuscular HGB Conc 34 g/dl (31-36); Mean Corpuscular Hemoglobin 30 pg (27-31); Mean Corpuscular Volume 90 fL (80-94); Mean Platelet Volume 8.8 um3 (7.4-10.4); Nucleated Red Blood Cells % 0.1; Platelet Count 232 10^3/ul (150-450); Red Blood Count 3.93 10^6/ul (4.00-5.40); Red Cell Distribution Width 16 % (10.5-15); White Blood Count 8.5 10^3/ul (3.5-10.8)
[2018-08-09 05:55] LABS: EGFR Non-African American 108.2 (>60)
[2018-08-09] MEDS: Heparin VIAL(*) 5000 UNITS/ML VIAL (FIVE THOUSAND) SUBCUT SCH ×3 (05:55→22:23)
[2018-08-09] MEDS: Pantoprazole IV* 40 MG IV SCH (09:22)
--- NOTE | 2018-08-09 10:16 | RAD ---
Indication: Evaluate for left arm deep venous thrombosis. Duplex Doppler sonography of the left upper extremity deep venous system was performed. The internal jugular veins demonstrates normal phasic flow bilaterally. The subclavian vein demonstrates successful augmentation and normal phasic flow bilaterally. The left axillary vein and brachial vein appear patent. The left basilic vein appears patent and compressible. PICC line appears in the basilic vein. The left thalamus vein appears to be occluded in the forearm distal to the antecubital space. IMPRESSION: The cephalic vein appears to be thrombosed distal to the antecubital fossa. The PICC line appears to be in the left basilic vein. The remainder of the left upper extremity deep venous system is patent.
--- NOTE | 2018-08-09 11:27 | PN ---
Subjective Date of Service: 08/09/18 Interval History: Patient resting in bed with family at bedside Reports no further BMs and no flatulence. No abd pain, nausea, or vomiting. Reports edema noted to left arm last evening has mildly improved. 14 point ROS completed and all other negative except above mentioned. Family History: Unchanged from Admission Social History: Unchanged from Admission Past Medical History: Unchanged from Admission Objective Active Medications: Acetaminophen (Tylenol Tab*) 650 mg PO Q6H PRN PRN Reason: TEMPERATURE > 101.5 Heparin Sodium (Porcine) (Heparin Vial(*)) 5,000 units SUBCUT Q8HR REPLACED BY [facility] Last Admin: 08/09/18 05:55 Dose: 5,000 units Heparin Sodium (Porcine) (Heparin Flush Picc/Ml/Cvc(*)) 1 - 3 ml FLUSH 0600, 1800 REPLACED BY [facility]; Protocol Last Admin: 08/09/18 06:04 Dose: Not Given Hydralazine HCl (Apresoline Iv*) 5 mg IV SLOW PU Q6H PRN PRN Reason: BLOOD PRESSURE Hydromorphone HCl (Dilaudid Inj1s*) 0.5 mg IV Q1H PRN PRN Reason: Pain - severe Last Admin: 08/06/18 22:21 Dose: 0.5 mg Dextrose 500 ml/ Amino Acids 850 ml/ Sterile Water 150 ml/Fat Emulsion Intravenous 250 ml/ Sodium Chloride 100 meq/Potassium Chloride 50 meq/Potassium Phosphate 15 mmole/Calcium Gluconate 15 meq/Magnesium Sulfate 10 meq/ Multivitamins 10 ml/ Trace Metals 1 ml/ Nutrition ( Parenteral) 1,850.721 mls @ 77.113 mls/hr CENTR 1700 REPLACED BY [facility] Last Admin: 08/08/18 17:44 Dose: 77.113 mls/hr Ondansetron HCl (Zofran Inj*) 4 mg IV Q4H PRN PRN Reason: NAUSEA/VOMITING Last Admin: 08/04/18 07:52 Dose: 4 mg Pantoprazole Sodium (Protonix Iv*) 40 mg IV DAILY REPLACED BY [facility] Last Admin: 08/09/18 09:22 Dose: 40 mg Vital Signs - 8 hr 08/09/18 08/09/18 04:16 07:55 Temperature 97.8 F 98.5 F Pulse Rate 48 54 Respiratory 18 17 Rate Blood Pressure 134/71 163/69 (mmHg) O2 Sat by Pulse 96 96 Oximetry Oxygen Devices in Use Now: None Appearance: Cooperative, comfortable, NAD Eyes: No Scleral Icterus Ears/Nose/Mouth/Throat: Clear Oropharnyx, Mucous Membranes Moist Neck: NL Appearance and Movements; NL JVP Respiratory: Symmetrical Chest Expansion and Respiratory Effort, Clear to Auscultation Cardiovascular: NL Sounds; No Murmurs; No JVD, RRR, No Edema Abdominal: - - BS high pitched in upper quads and normal lower quads. No tenderness or distention Lymphatic: No Cervical Adenopathy Extremities: No Edema, No Clubbing, Cyanosis, - - Edema to LUE. No edema to bilat LE Skin: No Rash or Ulcers Neurological: Alert and Oriented x 3, NL Sensation, NL Muscle Strength and Tone Nutrition: TPN Result Diagrams: 08/09/18 04:40 08/09/18 04:40 Additional Lab and Data: . Microbiology and Other Data: . Diagnostic Imaging: Patient Name: LIZBETH SANCHES Medical Record#: [id number] Ordering Physician: Verito Stephens MD Acct.#: [id number] : 1935 Age: 82 Sex: M Location: SURGICAL STAY UNIT Exam Date: 08/09/18 0613 ADM Status: ADM IN Order Information: VL UPPER EXT VEIN DOPPLER LEFT Accession Number: [id number] CPT: 33872 Indication: Evaluate for left arm deep venous thrombosis. Duplex Doppler sonography of the left upper extremity deep venous system was performed. The internal jugular veins demonstrates normal phasic flow bilaterally. The subclavian vein demonstrates successful augmentation and normal phasic flow bilaterally. The left axillary vein and brachial vein appear patent. The left basilic vein appears patent and compressible. PICC line appears in the basilic vein. The left thalamus vein appears to be occluded in the forearm distal to the antecubital space. IMPRESSION: The cephalic vein appears to be thrombosed distal to the antecubital fossa. The PICC line appears to be in the left basilic vein. The remainder of the left upper extremity deep venous system is patent. Patient Name: LIZBETH SANCHES Medical Record#: [id number] Ordering Physician: Jair Beatty MD Acct.#: [id number] : 1935 Age: 82 Sex: M Location: SURGICAL STAY UNIT Exam Date: 08/08/18 1632 ADM Status: ADM IN Order Information: CHEST AP PORTABLE Accession Number: [id number] CPT: 45834 HISTORY: verify PICC placement COMPARISONS: Abdomen series dated August 07, 2018 VIEWS: 1: frontal AP view of the chest at 4:40 PM FINDINGS: LINES AND TUBES: A gastric tube is noted with the tip in the upper abdomen. The tip position is indeterminate with respect to the pylorus. A left-sided PICC line is noted with the tip overlying the superior vena cava. CARDIOMEDIASTINAL SILHOUETTE: The cardiomediastinal silhouette is normal for portable technique. PLEURA: The costophrenic angles are sharp. No pleural abnormalities are noted. LUNG PARENCHYMA: There is hyperinflation with emphysematous change. There is platelike atelectasis of the right lung base. ABDOMEN: Again noted are dilated loops of small bowel consistent with small bowel obstruction. BONES AND SOFT TISSUES: There is diffuse osteopenia. Generative changes are noted of the spine and right shoulder. IMPRESSION: 1. LINES AND TUBES ABOVE. 2. EMPHYSEMA. 3. SMALL BOWEL OBSTRUCTION. EKG Data: . Assess/Plan/Problems-Billing Assessment: An 82 y/o male with PMH HTN, HLD, GERD and recent exploratory laparotomy with small bowel resection on 07/17/18, who was admitted with small bowel obstruction , likely secondary to adhesions. - Patient Problems (1) SBO (small bowel obstruction) Comment: - S/P laporotmy with small bowel resection 07/17/18. - Management per surgery, plans to continue NG tube decompression - No further BM. Denies flatulance - PICC line placed and TPN started last evening. LUE become swollen, TPN stopped. - TPN will be restarted once new PICC in placed in RUE. - CBC and CMP tomorrow (2) Cephalic vein thrombosis, left Comment: - LUE noted to be swollen after PICC placement and TPN infusion - Ultrasound revealed left cephalic vein thrombosed distal to antecubital fossa and PICC in left basilic vein - PICC to be removed from LUE due to increased risk of infection and new PICC placed in RUE. (3) HTN (hypertension) Comment: - Mildly hypertensive today - Hold home PO meds. Continue hydralyzine prn (4) GERD (gastroesophageal reflux disease) Comment: - Continue PPI coverage (5) Electrolyte abnormality Comment: - replaced mg+ yesterday - mag + 2.1 today - recheck CMP tomorrow (6) Aortic stenosis Comment: - Asymptomatic, moderate on ECHO 05/11/18. (7) BPH (benign prostatic hyperplasia) Comment: - Voiding with no issues - No symptoms suggesting urinary retention (8) DVT prophylaxis Comment: - SubQ Heparin Status and Disposition: Inpatient under surgical services. Anticipate discharge when medically stable.
--- NOTE | 2018-08-09 11:35 | RAD ---
HISTORY: sbo COMPARISONS: August 07, 2018 VIEWS: Frontal supine and upright views of the abdomen. FINDINGS: BOWEL: Again noted are dilated small bowel with multiple differential air-fluid levels, similar to the previous examination. Residual oral contrast is noted within the colon. A gastric tube is noted with the tip in the region of the pylorus. CALCULI: There are no abnormal calculi. BONES AND SOFT TISSUES: There is a scoliotic curvature of the spine. Degenerative changes are noted. OTHER FINDINGS: The lung bases are clear. There is no subphrenic gas. IMPRESSION: PERSISTENT SMALL BOWEL OBSTRUCTION SIMILAR TO THE PREVIOUS EXAMINATION
--- NOTE | 2018-08-09 15:46 | RAD ---
Indication: Evaluate for PICC line placement. Single frontal view of the chest performed at 1527 hours was reviewed. Comparison is made with previous exam dated August 08, 2018. No mediastinal shift is noted. Heart is of normal size and configuration. Right basilar atelectasis with small right pleural effusion is noted improved since previous exam. Right-sided PICC line is in place with the tip in the superior vena cava.. IMPRESSION: RIGHT BASE ATELECTASIS WITH RIGHT PLEURAL EFFUSION. PICC LINE IS IN PLACE.
--- NOTE | 2018-08-09 16:52 | PN ---
Progress Note - Progress Note Date of Service: 08/09/18 SOAP: Subjective: He feels about the same. No flatus or BM. Not much pain. Swelling reported in LUE where PICC placed and venous US shows clot in cephalic vv. Objective: Vital Signs Temp 98.5 F 08/09/18 07:55 Pulse 54 08/09/18 07:55 Resp 18 08/09/18 08:00 BP 163/69 08/09/18 07:55 Pulse Ox 96 08/09/18 07:55 Gen: NAD Abd: soft; mildly distended with tympany; NT LUE: mild edema compared to RUE. Intake & Output 08/08/18 08/09/18 08/09/18 18:59 06:59 18:59 Intake Total 0 0 Output Total 365 600 550 Balance -365 -600 -550 Intake: Oral 0 0 Output: NG Tube Drainage Amount 150 350 Urine 365 450 200 Other: # Bowel Movements 0 Laboratory Results - last 24 hr 08/08/18 08/09/18 08/09/18 19:23 00:09 04:40 WBC 8.5 RBC 3.93 L Hgb 11.9 L Hct 35 L MCV 90 MCH 30 MCHC 34 RDW 16 H Plt Count 232 MPV 8.8 Neut % (Auto) 83.3 H Lymph % (Auto) 7.8 L [place] % (Auto) 7.6 H Eos % (Auto) 1.0 Baso % (Auto) 0.3 Absolute Neuts (auto) 7.1 Absolute Lymphs (auto) 0.7 L Absolute Monos (auto) 0.6 Absolute Eos (auto) 0.1 Absolute Basos (auto) 0 Absolute Nucleated RBC 0 Nucleated RBC % 0.1 Sodium Potassium Chloride Carbon Dioxide Anion Gap BUN Creatinine Est GFR ( Amer) Est GFR (Non-Af Amer) BUN/Creatinine Ratio Glucose POC Glucose (mg/dL) 168 H 183 H Calcium Magnesium Total Bilirubin AST ALT Alkaline Phosphatase Total Protein Albumin Globulin Albumin/Globulin Ratio 08/09/18 08/09/18 08/09/18 04:40 06:24 12:20 WBC RBC Hgb Hct MCV MCH MCHC RDW Plt Count MPV Neut % (Auto) Lymph % (Auto) [place] % (Auto) Eos % (Auto) Baso % (Auto) Absolute Neuts (auto) Absolute Lymphs (auto) Absolute Monos (auto) Absolute Eos (auto) Absolute Basos (auto) Absolute Nucleated RBC Nucleated RBC % Sodium 141 Potassium 3.7 Chloride 106 Carbon Dioxide 28 Anion Gap 7 BUN 14 Creatinine 0.70 Est GFR ( Amer) 131.0 Est GFR (Non-Af Amer) 108.2 BUN/Creatinine Ratio 20.0 Glucose 168 H POC Glucose (mg/dL) 175 H 131 H Calcium 8.3 L Magnesium 2.1 Total Bilirubin 0.40 AST 11 L ALT 4 L Alkaline Phosphatase 36 Total Protein 5.1 L Albumin 2.9 L Globulin 2.2 Albumin/Globulin Ratio 1.3 Assessment: Early postop pSBO. POD#23 s/p exlap/SBRsxn for closed loop obstruction. No role for surgery in this situation as additional surgery incurs greater risk than continued non-operative management. Malnutrition due to prolonged NPO status. New superficial venous thrombus of LUE. Plan: Will continue NGT/NPO status. PICC to be changed to RUE and TPN to continue.
[2018-08-09] MEDS: TPN* 24 HR with Dextrose 50% Water* 500 ML, Amino Acid Infusion 10%* 850 ML, Sterile Wa... CENTR SCH ×12 (17:36)
[2018-08-10 05:24] LABS: ABS Basophils 0 10^3/ul (0-0.2); ABS Eosinophils 0.1 10^3/ul (0-0.6); ABS Lymphocytes 0.6 10^3/ul (1.0-4.8); ABS Monocytes 0.5 10^3/ul (0-0.8); ABS Neutrophils 4.7 10^3/ul (1.5-7.7); ABS Nucleated RBC 0 10^3/ul; Eosinophil % 1.7 % (0-6); Hematocrit 35 % (42-52); Hemoglobin 11.9 g/dl (14.0-18.0); Lymphocyte % 9.7 % (25-47); Mean Corpuscular HGB Conc 34 g/dl (31-36); Mean Corpuscular Hemoglobin 31 pg (27-31); Mean Corpuscular Volume 90 fL (80-94); Mean Platelet Volume 7.9 um3 (7.4-10.4); Nucleated Red Blood Cells % 0; Platelet Count 202 10^3/ul (150-450); Red Blood Count 3.87 10^6/ul (4.00-5.40); Red Cell Distribution Width 16 % (10.5-15); White Blood Count 5.9 10^3/ul (3.5-10.8)
[2018-08-10] MEDS: Heparin VIAL(*) 5000 UNITS/ML VIAL (FIVE THOUSAND) SUBCUT SCH ×3 (05:44→21:13)
[2018-08-10] MEDS: hydrALAZINE IV* 20 MG/ML VIAL IV SLOW PU PRN (08:57)
[2018-08-10] MEDS: Pantoprazole IV* 40 MG IV SCH (08:57)
--- NOTE | 2018-08-10 09:46 | PN ---
Progress Note - Progress Note Date of Service: 08/10/18 SOAP: Subjective: He denies pain, N/V. He had a small BM after walking last night. No flatus. Objective: Vital Signs Temp 98.5 F 08/10/18 07:45 Pulse 54 08/10/18 07:45 Resp 16 08/10/18 07:45 BP 174/73 08/10/18 07:45 Pulse Ox 98 08/10/18 07:45 Gen: NAD Abd: softly distended with tympany; BS+. NT x/ at [facility]. Intake & Output 08/09/18 08/10/18 08/10/18 18:59 06:59 18:59 Intake Total 0 805 Output Total 550 1325 Balance -550 -520 Intake: TPN/PPN 805 Oral 0 0 Output: NG Tube Drainage Amount 350 900 Urine 200 425 Laboratory Results - last 24 hr 08/09/18 08/09/18 08/09/18 00:09 06:24 12:20 WBC RBC Hgb Hct MCV MCH MCHC RDW Plt Count MPV Neut % (Auto) Lymph % (Auto) [place] % (Auto) Eos % (Auto) Baso % (Auto) Absolute Neuts (auto) Absolute Lymphs (auto) Absolute Monos (auto) Absolute Eos (auto) Absolute Basos (auto) Absolute Nucleated RBC Nucleated RBC % Sodium Potassium Chloride Carbon Dioxide Anion Gap BUN Creatinine Est GFR ( Amer) Est GFR (Non-Af Amer) BUN/Creatinine Ratio Glucose POC Glucose (mg/dL) 183 H 175 H 131 H Calcium Total Bilirubin AST ALT Alkaline Phosphatase Total Protein Albumin Globulin Albumin/Globulin Ratio 08/09/18 08/10/18 08/10/18 19:06 00:12 05:17 WBC 5.9 RBC 3.87 L Hgb 11.9 L Hct 35 L MCV 90 MCH 31 MCHC 34 RDW 16 H Plt Count 202 MPV 7.9 Neut % (Auto) 79.5 Lymph % (Auto) 9.7 L [place] % (Auto) 8.8 H Eos % (Auto) 1.7 Baso % (Auto) 0.3 Absolute Neuts (auto) 4.7 Absolute Lymphs (auto) 0.6 L Absolute Monos (auto) 0.5 Absolute Eos (auto) 0.1 Absolute Basos (auto) 0 Absolute Nucleated RBC 0 Nucleated RBC % 0 Sodium Potassium Chloride Carbon Dioxide Anion Gap BUN Creatinine Est GFR ( Amer) Est GFR (Non-Af Amer) BUN/Creatinine Ratio Glucose POC Glucose (mg/dL) 115 H 168 H Calcium Total Bilirubin AST ALT Alkaline Phosphatase Total Protein Albumin Globulin Albumin/Globulin Ratio 08/10/18 05:17 WBC RBC Hgb Hct MCV MCH MCHC RDW Plt Count MPV Neut % (Auto) Lymph % (Auto) [place] % (Auto) Eos % (Auto) Baso % (Auto) Absolute Neuts (auto) Absolute Lymphs (auto) Absolute Monos (auto) Absolute Eos (auto) Absolute Basos (auto) Absolute Nucleated RBC Nucleated RBC % Sodium 141 Potassium 3.7 Chloride 107 Carbon Dioxide 30 Anion Gap 4 BUN 20 Creatinine 0.69 Est GFR ( Amer) 133.2 Est GFR (Non-Af Amer) 110.0 BUN/Creatinine Ratio 29.0 H Glucose 149 H POC Glucose (mg/dL) Calcium 8.4 L Total Bilirubin 0.40 AST 11 L ALT 5 L Alkaline Phosphatase 41 Total Protein 5.0 L Albumin 2.8 L Globulin 2.2 Albumin/Globulin Ratio 1.3 Assessment: Early postop pSBO. POD#24 s/p exlap/SBRsxn for closed loop obstruction. No role for surgery in this situation as additional surgery incurs greater risk than continued non-operative management. Malnutrition due to prolonged NPO status. Plan: Will continue NGT/NPO status. Cont TPN.
--- NOTE | 2018-08-10 10:00 | PN ---
Subjective Date of Service: 08/10/18 Interval History: Resting in bed. NG tube to suction and draining. TPN infusing to right UE Reports he feels "better". Denies pain, nausea/vomiting, cp, or sob. Reports he had a small BM yesterday. Denies flatus. 14 point ROS completed and all others negative except above mentioned. Family History: Unchanged from Admission Social History: Unchanged from Admission Past Medical History: Unchanged from Admission Objective Active Medications: Acetaminophen (Tylenol Tab*) 650 mg PO Q6H PRN PRN Reason: TEMPERATURE > 101.5 Heparin Sodium (Porcine) (Heparin Vial(*)) 5,000 units SUBCUT Q8HR [facility] Last Admin: 08/10/18 05:44 Dose: 5,000 units Heparin Sodium (Porcine) (Heparin Flush Picc/Ml/Cvc(*)) 1 - 3 ml FLUSH 0600, 1800 [facility]; Protocol Last Admin: 08/10/18 05:32 Dose: Not Given Hydralazine HCl (Apresoline Iv*) 5 mg IV SLOW PU Q6H PRN PRN Reason: BLOOD PRESSURE Last Admin: 08/10/18 08:57 Dose: 5 mg Hydromorphone HCl (Dilaudid Inj1s*) 0.5 mg IV Q1H PRN PRN Reason: Pain - severe Last Admin: 08/06/18 22:21 Dose: 0.5 mg Dextrose 500 ml/ Amino Acids 850 ml/ Sterile Water 150 ml/Fat Emulsion Intravenous 250 ml/ Sodium Chloride 100 meq/Potassium Chloride 50 meq/Potassium Phosphate 15 mmole/Calcium Gluconate 15 meq/Magnesium Sulfate 10 meq/ Multivitamins 10 ml/ Trace Metals 1 ml/ Nutrition ( Parenteral) 1,850.721 mls @ 77.113 mls/hr [facility] Last Admin: 08/09/18 17:36 Dose: 77.113 mls/hr Ondansetron HCl (Zofran Inj*) 4 mg IV Q4H PRN PRN Reason: NAUSEA/VOMITING Last Admin: 08/04/18 07:52 Dose: 4 mg Pantoprazole Sodium (Protonix Iv*) 40 mg IV DAILY [facility] Last Admin: 08/10/18 08:57 Dose: 40 mg Vital Signs - 8 hr 08/10/18 08/10/18 03:15 07:45 Temperature 97.9 F 98.5 F Pulse Rate 51 54 Respiratory 16 16 Rate Blood Pressure 167/70 174/73 (mmHg) O2 Sat by Pulse 94 98 Oximetry Oxygen Devices in Use Now: None Appearance: NAD, Comfortable, and cooperative Eyes: No Scleral Icterus Ears/Nose/Mouth/Throat: Clear Oropharnyx, Mucous Membranes Moist Neck: NL Appearance and Movements; NL JVP Respiratory: Symmetrical Chest Expansion and Respiratory Effort, Clear to Auscultation Cardiovascular: RRR - Murmur noted. Also noted in previous cardiology office note, No Edema Abdominal: - - BS hypoactive. Abd soft, nontender, not distended Extremities: No Edema Skin: No Rash or Ulcers Neurological: Alert and Oriented x 3 Nutrition: TPN Result Diagrams: 08/10/18 05:17 08/10/18 05:17 Additional Lab and Data: . Microbiology and Other Data: . Diagnostic Imaging: Patient Name: LIZBETH SANCHES Medical Record#: [id number] Ordering Physician: Verito Stephens MD Acct.#: [id number] : 1935 Age: 82 Sex: M Location: SURGICAL STAY UNIT Exam Date: 08/09/18 0613 ADM Status: ADM IN Order Information: VL UPPER EXT VEIN DOPPLER LEFT Accession Number: [id number] CPT: 25642 Indication: Evaluate for left arm deep venous thrombosis. Duplex Doppler sonography of the left upper extremity deep venous system was performed. The internal jugular veins demonstrates normal phasic flow bilaterally. The subclavian vein demonstrates successful augmentation and normal phasic flow bilaterally. The left axillary vein and brachial vein appear patent. The left basilic vein appears patent and compressible. PICC line appears in the basilic vein. The left thalamus vein appears to be occluded in the forearm distal to the antecubital space. IMPRESSION: The cephalic vein appears to be thrombosed distal to the antecubital fossa. The PICC line appears to be in the left basilic vein. The remainder of the left upper extremity deep venous system is patent. Patient Name: LIZBETH SANCHES Medical Record#: [id number] Ordering Physician: Jair Beatty MD Acct.#: [id number] : 1935 Age: 82 Sex: M Location: SURGICAL STAY UNIT Exam Date: 08/08/18 1632 ADM Status: ADM IN Order Information: CHEST AP PORTABLE Accession Number: [id number] CPT: 15712 HISTORY: verify PICC placement COMPARISONS: Abdomen series dated August 07, 2018 VIEWS: 1: frontal AP view of the chest at 4:40 PM FINDINGS: LINES AND TUBES: A gastric tube is noted with the tip in the upper abdomen. The tip position is indeterminate with respect to the pylorus. A left-sided PICC line is noted with the tip overlying the superior vena cava. CARDIOMEDIASTINAL SILHOUETTE: The cardiomediastinal silhouette is normal for portable technique. PLEURA: The costophrenic angles are sharp. No pleural abnormalities are noted. LUNG PARENCHYMA: There is hyperinflation with emphysematous change. There is platelike atelectasis of the right lung base. ABDOMEN: Again noted are dilated loops of small bowel consistent with small bowel obstruction. BONES AND SOFT TISSUES: There is diffuse osteopenia. Generative changes are noted of the spine and right shoulder. IMPRESSION: 1. LINES AND TUBES ABOVE. 2. EMPHYSEMA. 3. SMALL BOWEL OBSTRUCTION. Patient Name: LIZBETH SANCHES Medical Record#: [id number] Ordering Physician: Jair Beatty MD Acct.#: [id number] : 1935 Age: 82 Sex: M Location: SURGICAL STAY UNIT Exam Date: 08/09/18 1500 ADM Status: ADM IN Order Information: CHEST AP PORTABLE Accession Number: [id number] CPT: 99578 Indication: Evaluate for PICC line placement. Single frontal view of the chest performed at 1527 hours was reviewed. Comparison is made with previous exam dated August 08, 2018. No mediastinal shift is noted. Heart is of normal size and configuration. Right basilar atelectasis with small right pleural effusion is noted improved since previous exam. Right-sided PICC line is in place with the tip in the superior vena cava.. IMPRESSION: RIGHT BASE ATELECTASIS WITH RIGHT PLEURAL EFFUSION. PICC LINE IS IN PLACE. EKG Data: . Assess/Plan/Problems-Billing Assessment: An 82 y/o male with PMH HTN, HLD, GERD and recent exploratory laparotomy with small bowel resection on 07/17/18, who was admitted with small bowel obstruction , likely secondary to adhesions. - Patient Problems (1) SBO (small bowel obstruction) Comment: - S/P laporotmy with small bowel resection POD 24 - Management per surgery, plans to continue NG tube decompression - Reports BM last evening. Denies flatulance - PICC line placed in RUE after thrombus in LUE. - TPN resumed - CBC and CMP tomorrow - Encouraged ambulation and incentive spirometer (2) Cephalic vein thrombosis, left Comment: - LUE edema has resolved. - Denies pain (3) HTN (hypertension) Comment: - Hypertensive this morning and received hydralyzine PRN - Hold home PO meds. Continue hydralyzine prn (4) GERD (gastroesophageal reflux disease) Comment: - Continue PPI coverage (5) Aortic stenosis Comment: - Asymptomatic, moderate on ECHO 05/11/18. (6) BPH (benign prostatic hyperplasia) Comment: - Voiding with no issues - No symptoms suggesting urinary retention (7) DVT prophylaxis Comment: - SubQ Heparin Status and Disposition: Inpatient under surgical services. Anticipate discharge when medically stable. Attending: Helen Moore
--- NOTE | 2018-08-10 16:03 | RAD ---
HISTORY: NG placement COMPARISONS: August 09, 2018 VIEWS: 1: frontal AP view of the chest at 3:45 PM FINDINGS: LINES AND TUBES: A right-sided PICC line is noted with the tip overlying the superior vena cava. A gastric tube is noted with the tip coiled in a hiatal hernia. CARDIOMEDIASTINAL SILHOUETTE: The cardiomediastinal silhouette is normal for portable technique. PLEURA: The costophrenic angles are sharp. No pleural abnormalities are noted. LUNG PARENCHYMA: The lungs are clear. ABDOMEN: There is a moderate-sized hiatal hernia. There is distention of small bowel loops with mild dilatation similar to the previous examination. BONES AND SOFT TISSUES: No bone or soft tissue abnormalities are noted. IMPRESSION: LINES AND TUBES ABOVE. NO ACTIVE CARDIOPULMONARY DISEASE.
[2018-08-10] MEDS: TPN* 24 HR with Dextrose 50% Water* 500 ML, Amino Acid Infusion 10%* 850 ML, Sterile Wa... CENTR SCH ×12 (17:41)
[2018-08-11] MEDS: Heparin VIAL(*) 5000 UNITS/ML VIAL (FIVE THOUSAND) SUBCUT SCH ×3 (05:44→22:40)
[2018-08-11 05:57] LABS: ABS Basophils 0 10^3/ul (0-0.2); ABS Eosinophils 0.1 10^3/ul (0-0.6); ABS Lymphocytes 0.5 10^3/ul (1.0-4.8); ABS Monocytes 0.7 10^3/ul (0-0.8); ABS Neutrophils 4.6 10^3/ul (1.5-7.7); ABS Nucleated RBC 0 10^3/ul; Eosinophil % 1.2 % (0-6); Hematocrit 34 % (42-52); Hemoglobin 12.1 g/dl (14.0-18.0); Lymphocyte % 9.1 % (25-47); Mean Corpuscular HGB Conc 36 g/dl (31-36); Mean Corpuscular Hemoglobin 32 pg (27-31); Mean Corpuscular Volume 90 fL (80-94); Mean Platelet Volume 8.4 um3 (7.4-10.4); Nucleated Red Blood Cells % 0; Platelet Count 191 10^3/ul (150-450); Red Blood Count 3.78 10^6/ul (4.00-5.40); Red Cell Distribution Width 16 % (10.5-15)
[2018-08-11 06:19] LABS: EGFR Non-African American 124.5 (>60)
[2018-08-11] MEDS: hydrALAZINE IV* 20 MG/ML VIAL IV SLOW PU PRN (07:37)
[2018-08-11] MEDS: Pantoprazole IV* 40 MG IV SCH (08:59)
--- NOTE | 2018-08-11 09:27 | PN ---
Progress Note - Progress Note Date of Service: 08/11/18 Note: S: no sig abd pain. He states he had 2 BMs yesterday, though his hx is not always reliable. Denies N/V, SOB. Apparently NG pulled out partially last pm and port cXray show it curled within his hiatal hernia. Current Medications Acetaminophen (Tylenol Tab*) 650 mg PO Q6H PRN PRN Reason: TEMPERATURE > 101.5 Heparin Sodium (Porcine) (Heparin Vial(*)) 5,000 units SUBCUT Q8HR [facility] Last Admin: 08/11/18 05:44 Dose: 5,000 units Heparin Sodium (Porcine) (Heparin Flush Picc/Ml/Cvc(*)) 1 - 3 ml FLUSH 0600, 1800 [facility]; Protocol Last Admin: 08/11/18 05:47 Dose: Not Given Hydralazine HCl (Apresoline Iv*) 5 mg IV SLOW PU Q6H PRN PRN Reason: BLOOD PRESSURE Last Admin: 08/11/18 07:37 Dose: 5 mg Dextrose 500 ml/ Amino Acids 850 ml/ Sterile Water 150 ml/Fat Emulsion Intravenous 250 ml/ Sodium Chloride 100 meq/Potassium Chloride 50 meq/Potassium Phosphate 15 mmole/Calcium Gluconate 15 meq/Magnesium Sulfate 10 meq/ Multivitamins 10 ml/ Trace Metals 1 ml/ Nutrition ( Parenteral) 1,850.721 mls @ 77.113 mls/hr [facility] 1700 [facility] Last Admin: 08/10/18 17:41 Dose: 77.113 mls/hr Ondansetron HCl (Zofran Inj*) 4 mg IV Q4H PRN PRN Reason: NAUSEA/VOMITING Last Admin: 08/04/18 07:52 Dose: 4 mg Pantoprazole Sodium (Protonix Iv*) 40 mg IV DAILY [facility] Last Admin: 08/11/18 08:59 Dose: 40 mg O: Vital Signs - 8 hr 08/11/18 08/11/18 08/11/18 03:15 07:13 07:52 Temperature 98.1 F 98.7 F Pulse Rate 50 51 Respiratory 16 18 18 Rate Blood Pressure 163/63 174/60 (mmHg) O2 Sat by Pulse 99 97 Oximetry Intake and Output Last 24 Hours 08/09/18 08/10/18 08/11/18 08/12/18 06:59 06:59 06:59 06:59 Intake Total 0 805 909 Output Total 968 9055 6858 Balance -525 -1070 -726 Intake: TPN/PPN 805 909 Oral 0 0 0 Output: NG Tube Drainage Amount 150 1250 460 Urine 410 241 2071 Other: Estimated Void Small # Bowel Movements 0 0 # Voids 1 Heart: reg Lungs: clear ant Abd: min distended; tympanitic throughout; few BS. Soft, nontender to palp AXR: as above w/NG in HH. A: SBO, no sig change. NG in HH. P: I backed out the NG and advanced to ~ 55 cm, though with some resistance. It may still be curled in the HH; will recheck xray. Cont TPN.
--- NOTE | 2018-08-11 10:10 | RAD ---
Indication: Confirm NG tube placement. Single frontal view of the chest performed at 0841 hours was reviewed. Comparison is made with previous exam dated August 10, 2018. Nasogastric tube is in the gastroesophageal junction. This is coiled presumably hiatal hernia. Bilateral pleural effusion and bibasilar atelectasis is noted. PICC line is in place with the tip in the superior vena cava.. IMPRESSION: CARDIOMEGALY. NASOGASTRIC TUBE IS COILED IN THE HIATAL HERNIA. BILATERAL PLEURAL EFFUSION WITH BIBASILAR ATELECTASIS IS NOTED.
--- NOTE | 2018-08-11 11:42 | RAD ---
INDICATION: Recheck NG tube placement. COMPARISON: Comparison is made with a prior chest x-ray study from approximately 2 hours earlier. TECHNIQUE: A portable view of the chest was obtained. FINDINGS: Cardiac and mediastinal contours appear to be within normal limits. There is a PICC present. The catheter tip projects over the region of the superior vena cava. There is a nasogastric tube present. The distal portion appears coiled likely within the distal esophagus. There is a small infiltrate at the right lung base and small bilateral pleural effusions. IMPRESSION: 1. NG TUBE CATHETER APPEARS COILED IN THE DISTAL ESOPHAGUS. RECOMMEND REPOSITIONING. 2. SMALL RIGHT BASILAR INFILTRATE, UNCHANGED. 3. SMALL BILATERAL PLEURAL EFFUSIONS, UNCHANGED.
[2018-08-11] MEDS ORDERED: NS 0.9% 1000 ML* 1,000 ML IV SCH (17:00)
--- NOTE | 2018-08-11 17:00 | PN ---
Subjective Date of Service: 08/11/18 Interval History: Pt reports he "feels the same". He feels frustrated he is not improving and had to have NG tube placement x2 today. Denies pain. No nausea. No SOB/fever or chills. at bedside Family History: Unchanged from Admission Social History: Unchanged from Admission Past Medical History: Unchanged from Admission Objective Active Medications: Acetaminophen (Tylenol Tab*) 650 mg PO Q6H PRN PRN Reason: TEMPERATURE > 101.5 Heparin Sodium (Porcine) (Heparin Vial(*)) 5,000 units SUBCUT Q8HR [facility] Last Admin: 08/11/18 14:05 Dose: 5,000 units Heparin Sodium (Porcine) (Heparin Flush Picc/Ml/Cvc(*)) 1 - 3 ml FLUSH 0600, 1800 [facility]; Protocol Last Admin: 08/11/18 05:47 Dose: Not Given Hydralazine HCl (Apresoline Iv*) 5 mg IV SLOW PU Q6H PRN PRN Reason: BLOOD PRESSURE Last Admin: 08/11/18 07:37 Dose: 5 mg Dextrose 500 ml/ Amino Acids 850 ml/ Sterile Water 150 ml/Fat Emulsion Intravenous 250 ml/ Sodium Chloride 100 meq/Potassium Chloride 50 meq/Potassium Phosphate 15 mmole/Calcium Gluconate 15 meq/Magnesium Sulfate 10 meq/ Multivitamins 10 ml/ Trace Metals 1 ml/ Nutrition ( Parenteral) 1,850.721 mls @ 77.113 mls/hr [facility] Last Admin: 08/10/18 17:41 Dose: 77.113 mls/hr Ondansetron HCl (Zofran Inj*) 4 mg IV Q4H PRN PRN Reason: NAUSEA/VOMITING Last Admin: 08/04/18 07:52 Dose: 4 mg Pantoprazole Sodium (Protonix Iv*) 40 mg IV DAILY [facility] Last Admin: 08/11/18 08:59 Dose: 40 mg Vital Signs - 8 hr 08/11/18 08/11/18 08/11/18 09:00 09:34 11:29 Temperature 97.9 F 98.5 F Pulse Rate 54 52 Respiratory 12 12 18 Rate Blood Pressure 152/60 135/64 (mmHg) O2 Sat by Pulse 96 98 Oximetry 08/11/18 15:19 Temperature 99.0 F Pulse Rate 51 Respiratory 18 Rate Blood Pressure 138/59 (mmHg) O2 Sat by Pulse 97 Oximetry Oxygen Devices in Use Now: None Appearance: thin elderly 82 yo male laying in bed in NAD A+O x3 Eyes: No Scleral Icterus, PERRLA Ears/Nose/Mouth/Throat: - - dry MM Neck: NL Appearance and Movements; NL JVP Respiratory: Symmetrical Chest Expansion and Respiratory Effort, Clear to Auscultation Cardiovascular: NL Sounds; No Murmurs; No JVD, RRR, No Edema Abdominal: - - mild distention, soft,BS+ - no guarding Extremities: No Edema, No Clubbing, Cyanosis Neurological: Alert and Oriented x 3, NL Sensation Lines/Tubes/Other Access: Clean, Dry and Intact Naso-enteral Tube, Clean, Dry and Intact Peripheral IV Nutrition: Taking PO's Result Diagrams: 08/11/18 05:45 08/11/18 05:45 Additional Lab and Data: . Microbiology and Other Data: . EKG Data: . Assess/Plan/Problems-Billing Assessment: An 82 y/o male with PMH HTN, HLD, GERD and recent exploratory laparotomy with small bowel resection on 07/17/18, who was admitted with small bowel obstruction , likely secondary to adhesions. - Patient Problems (1) SBO (small bowel obstruction) Comment: - S/P laporotmy with small bowel resection POD 25 - Management per surgery, plans to continue NG tube decompression - difficult NG tube placement d/t hiatal hernia - surgery replaced-> the removed and replaced again today by RN -> surgery aware it is still coiled in the distal espohagus - PICC line placed in RUE after thrombus in LUE. - TPN resumed - CBC and CMP tomorrow - Encouraged ambulation and incentive spirometer - appears dry on exam -> low uo today - plan to start NS at 50 ml/hr (TPN at a rate 77ml/hr) (2) Electrolyte abnormality Comment: - resolved with replacement. continue to monitor (3) HTN (hypertension) Comment: - stable - hydralyzine prn - home meds on hold d/t NPO status (4) BPH (benign prostatic hyperplasia) Comment: - Voiding with no issues - No symptoms suggesting urinary retention (5) GERD (gastroesophageal reflux disease) Comment: - Continue PPI coverage (6) Aortic stenosis Comment: - Asymptomatic, moderate on ECHO 05/11/18. (7) Full code status (8) DVT prophylaxis Comment: - SubQ Heparin Status and Disposition: Inpatient under surgical services. Anticipate discharge when medically stable.
[2018-08-11] MEDS: TPN* 24 HR with Dextrose 50% Water* 500 ML, Amino Acid Infusion 10%* 850 ML, Sterile Wa... CENTR SCH ×12 (17:08)
[2018-08-12] MEDS: Heparin VIAL(*) 5000 UNITS/ML VIAL (FIVE THOUSAND) SUBCUT SCH ×3 (05:49→22:09)
[2018-08-12 06:00] LABS: ABS Basophils 0 10^3/ul (0-0.2); ABS Eosinophils 0.1 10^3/ul (0-0.6); ABS Lymphocytes 0.7 10^3/ul (1.0-4.8); ABS Monocytes 0.9 10^3/ul (0-0.8); ABS Neutrophils 4.9 10^3/ul (1.5-7.7); ABS Nucleated RBC 0 10^3/ul; Eosinophil % 1.6 % (0-6); Hematocrit 34 % (42-52); Hemoglobin 11.7 g/dl (14.0-18.0); Lymphocyte % 10.3 % (25-47); Mean Corpuscular HGB Conc 34 g/dl (31-36); Mean Corpuscular Hemoglobin 30 pg (27-31); Mean Corpuscular Volume 89 fL (80-94); Mean Platelet Volume 8.6 um3 (7.4-10.4); Nucleated Red Blood Cells % 0; Platelet Count 182 10^3/ul (150-450); Red Blood Count 3.86 10^6/ul (4.00-5.40); Red Cell Distribution Width 16 % (10.5-15); White Blood Count 6.5 10^3/ul (3.5-10.8)
[2018-08-12 07:23] LABS: EGFR Non-African American 115.8 (>60)
[2018-08-12] MEDS: Pantoprazole IV* 40 MG IV SCH (09:02)
--- NOTE | 2018-08-12 10:06 | RAD ---
Indication: Small bowel obstruction Flat and upright view of the abdomen demonstrates dilated loops of small bowel with air-fluid levels. The nasogastric tube has been repositioned and the tip is likely close to the gastroesophageal junction. The proximal fenestration in the nasogastric tube appears to be in the esophagus. Advancement of the nasogastric tube is suggested. IMPRESSION: Dilated small bowel with air-fluid levels consistent with small bowel obstruction similar to that present on August 06, 2018. The nasogastric tube has been partially advanced although the tip is close to the gastroesophageal junction. The proximal hole appears to be within the esophagus. Recommend advancement of the nasogastric tube.
[2018-08-12] MEDS ORDERED: Midazolam* 1 MG/ML 10 ML VIAL (10 MG) ONE (17:12)
[2018-08-12] MEDS ORDERED: fentaNYL* 50 MCG/ML 2 ML VIAL (100 MCG VIAL) ONE (17:12)
--- NOTE | 2018-08-12 18:08 | PN ---
Subjective Date of Service: 08/12/18 Interval History: Reports that " it has been a rough day" Patient reports that he has had difficulty with his NG tube today. Denies chest pain or shortness of breath. Denies n/v. Does report mild abd pain to left abd. Family History: Unchanged from Admission Social History: Unchanged from Admission Past Medical History: Unchanged from Admission Objective Active Medications: Acetaminophen (Tylenol Tab*) 650 mg PO Q6H PRN PRN Reason: TEMPERATURE > 101.5 Heparin Sodium (Porcine) (Heparin Vial(*)) 5,000 units SUBCUT Q8HR [facility] Last Admin: 08/12/18 14:49 Dose: 5,000 units Heparin Sodium (Porcine) (Heparin Flush Picc/Ml/Cvc(*)) 1 - 3 ml FLUSH 0600, 1800 [facility]; Protocol Last Admin: 08/12/18 05:51 Dose: Not Given Hydralazine HCl (Apresoline Iv*) 5 mg IV SLOW PU Q6H PRN PRN Reason: BLOOD PRESSURE Last Admin: 08/11/18 07:37 Dose: 5 mg Dextrose 500 ml/ Amino Acids 850 ml/ Sterile Water 150 ml/Fat Emulsion Intravenous 250 ml/ Sodium Chloride 100 meq/Potassium Chloride 50 meq/Potassium Phosphate 15 mmole/Calcium Gluconate 15 meq/Magnesium Sulfate 10 meq/ Multivitamins 10 ml/ Trace Metals 1 ml/ Nutrition ( Parenteral) 1,850.721 mls @ 77.113 mls/hr [facility] Ondansetron HCl (Zofran Inj*) 4 mg IV Q4H PRN PRN Reason: NAUSEA/VOMITING Last Admin: 08/04/18 07:52 Dose: 4 mg Pantoprazole Sodium (Protonix Iv*) 40 mg IV DAILY [facility] Last Admin: 08/12/18 09:02 Dose: 40 mg Vital Signs - 8 hr 08/12/18 11:23 Temperature 99.0 F Pulse Rate 51 Respiratory 16 Rate Blood Pressure 141/68 (mmHg) O2 Sat by Pulse 97 Oximetry Oxygen Devices in Use Now: None Appearance: appears comfortable resting in bed Eyes: No Scleral Icterus Ears/Nose/Mouth/Throat: Clear Oropharnyx, Mucous Membranes Moist Neck: NL Appearance and Movements; NL JVP, Trachea Midline Respiratory: Symmetrical Chest Expansion and Respiratory Effort, Clear to Auscultation Cardiovascular: NL Sounds; No Murmurs; No JVD, No Edema Abdominal: NL Sounds; No Tenderness; No Distention Extremities: No Edema, No Clubbing, Cyanosis Skin: No Rash or Ulcers Neurological: Alert and Oriented x 3 Lines/Tubes/Other Access: Clean, Dry and Intact Naso-enteral Tube - in place Nutrition: TPN Result Diagrams: 08/12/18 05:47 08/12/18 05:47 Additional Lab and Data: . Microbiology and Other Data: . Diagnostic Imaging: Patient Name: LIZBETH SANCHES Medical Record#: [id number] Ordering Physician: Verito Stephens MD Acct.#: [id number] : 1935 Age: 82 Sex: M Location: SURGICAL STAY UNIT Exam Date: 08/09/18 0613 ADM Status: ADM IN Order Information: VL UPPER EXT VEIN DOPPLER LEFT Accession Number: [id number] CPT: 79050 Indication: Evaluate for left arm deep venous thrombosis. Duplex Doppler sonography of the left upper extremity deep venous system was performed. The internal jugular veins demonstrates normal phasic flow bilaterally. The subclavian vein demonstrates successful augmentation and normal phasic flow bilaterally. The left axillary vein and brachial vein appear patent. The left basilic vein appears patent and compressible. PICC line appears in the basilic vein. The left thalamus vein appears to be occluded in the forearm distal to the antecubital space. IMPRESSION: The cephalic vein appears to be thrombosed distal to the antecubital fossa. The PICC line appears to be in the left basilic vein. The remainder of the left upper extremity deep venous system is patent. Patient Name: LIZBETH SANCHES Medical Record#: [id number] Ordering Physician: Jair Beatty MD Acct.#: [id number] : 1935 Age: 82 Sex: M Location: SURGICAL STAY UNIT Exam Date: 08/08/18 1632 ADM Status: ADM IN Order Information: CHEST AP PORTABLE Accession Number: [id number] CPT: 77161 HISTORY: verify PICC placement COMPARISONS: Abdomen series dated August 07, 2018 VIEWS: 1: frontal AP view of the chest at 4:40 PM FINDINGS: LINES AND TUBES: A gastric tube is noted with the tip in the upper abdomen. The tip position is indeterminate with respect to the pylorus. A left-sided PICC line is noted with the tip overlying the superior vena cava. CARDIOMEDIASTINAL SILHOUETTE: The cardiomediastinal silhouette is normal for portable technique. PLEURA: The costophrenic angles are sharp. No pleural abnormalities are noted. LUNG PARENCHYMA: There is hyperinflation with emphysematous change. There is platelike atelectasis of the right lung base. ABDOMEN: Again noted are dilated loops of small bowel consistent with small bowel obstruction. BONES AND SOFT TISSUES: There is diffuse osteopenia. Generative changes are noted of the spine and right shoulder. IMPRESSION: 1. LINES AND TUBES ABOVE. 2. EMPHYSEMA. 3. SMALL BOWEL OBSTRUCTION. Patient Name: LIZBETH SANCHES Medical Record#: [id number] Ordering Physician: Jair Beatty MD Acct.#: [id number] : 1935 Age: 82 Sex: M Location: SURGICAL STAY UNIT Exam Date: 08/09/18 1500 ADM Status: ADM IN Order Information: CHEST AP PORTABLE Accession Number: [id number] CPT: 67185 Indication: Evaluate for PICC line placement. Single frontal view of the chest performed at 1527 hours was reviewed. Comparison is made with previous exam dated August 08, 2018. No mediastinal shift is noted. Heart is of normal size and configuration. Right basilar atelectasis with small right pleural effusion is noted improved since previous exam. Right-sided PICC line is in place with the tip in the superior vena cava.. IMPRESSION: RIGHT BASE ATELECTASIS WITH RIGHT PLEURAL EFFUSION. PICC LINE IS IN PLACE. EKG Data: . Assess/Plan/Problems-Billing Assessment: An 82 y/o male with PMH HTN, HLD, GERD and recent exploratory laparotomy with small bowel resection on 07/17/18, who was admitted with small bowel obstruction , likely secondary to adhesions. - Patient Problems (1) SBO (small bowel obstruction) Current Visit: Yes Status: Acute Code(s): K56.609 - UNSP INTESTNL OBST, UNSP TO PARTIAL VERSUS COMPLETE OBST SNOMED Code(s): 003457852 Comment: - S/P laporotmy with small bowel resection POD 26 - Management per surgery, plans to continue NG tube decompression - difficult NG tube placement d/t hiatal hernia - surgery replaced-> the removed and replaced again today by surgery -> Rad recommended advancing the tube- patient was taken to ENDO for placement today - PICC line placed in RUE after thrombus in LUE. - TPN resumed - CBC and CMP tomorrow - Encouraged ambulation and incentive spirometer -Appears dry continues to have low urine output - would recommend NS at 50 cc/hr (2) HTN (hypertension) Current Visit: Yes Status: Acute Code(s): I10 - ESSENTIAL (PRIMARY) HYPERTENSION SNOMED Code(s): 21484875 Comment: - stable - hydralyzine prn - home meds on hold d/t NPO status (3) GERD (gastroesophageal reflux disease) Current Visit: Yes Status: Acute Code(s): K21.9 - GASTRO-ESOPHAGEAL REFLUX DISEASE WITHOUT ESOPHAGITIS SNOMED Code(s): 248352628 Comment: - Continue PPI coverage (4) Electrolyte abnormality Current Visit: Yes Status: Acute Code(s): E87.8 - OTH DISORDERS OF ELECTROLYTE AND FLUID BALANCE, NEC SNOMED Code(s): 353725815 Comment: - resolved with replacement. continue to monitor (5) BPH (benign prostatic hyperplasia) Current Visit: Yes Status: Chronic Code(s): N40.0 - BENIGN PROSTATIC HYPERPLASIA WITHOUT LOWER URINRY TRACT SYMP SNOMED Code(s): 250188467 Comment: - Voiding with no issues - No symptoms suggesting urinary retention (6) DVT prophylaxis Current Visit: Yes Status: Acute Code(s): UNP1863 - SNOMED Code(s): 738950617 Comment: - SubQ Heparin (7) Full code status Current Visit: Yes Status: Acute Code(s): Z78.9 - OTHER SPECIFIED HEALTH STATUS SNOMED Code(s): 996835405 Status and Disposition: Inpatient under surgical services. Anticipate discharge when medically stable.
[2018-08-12] MEDS ORDERED: NS 0.9% 1000 ML* 1,000 ML IV SCH (18:15)
[2018-08-12] MEDS: TPN* 24 HR with Dextrose 50% Water* 500 ML, Amino Acid Infusion 10%* 850 ML, Sterile Wa... CENTR SCH ×12 (19:44)
--- NOTE | 2018-08-12 20:36 | PN ---
Progress Note - Progress Note Date of Service: 08/12/18 Note: Pt was seen in AM and PM today. In the morning he had no c/o abd pain, N/V. He had had the NGT replaced x2 yesterday and it was not in good position on the xray. The tube was replaced into the right nares but would not advance beyond 45-50 cm. The f/u AXR showed persistet SBO with NGT in HH. At f/u in afternoon he was seen with his at bedside. He c/o being tired and expressed frustration at the NGT issue as well as lack of progress with SBO. No flatus/N/V. On PE: AVSS NAD Abd: softly distended with min tenderness. Intake and Output Last 24 Hours 08/10/18 08/11/18 08/12/18 08/13/18 06:59 06:59 06:59 06:59 Intake Total 828 257 6299 2938 Output Total 1875 1635 1085 930 Balance -1070 -193 153 6729 Intake: IV Fluids 1000 NS (0.9%) 1000 TPN/PPN 421 659 2057 1938 Oral 0 0 0 0 Output: NG Tube Drainage Amount 1250 460 310 700 Urine 625 1175 775 230 Other: Estimated Void Small Small # Bowel Movements 0 # Voids 1 1 Laboratory Results - last 24 hr 08/11/18 08/12/18 08/12/18 23:44 05:47 05:47 WBC 6.5 RBC 3.86 L Hgb 11.7 L Hct 34 L MCV 89 MCH 30 MCHC 34 RDW 16 H Plt Count 182 MPV 8.6 Neut % (Auto) 74.3 Lymph % (Auto) 10.3 L Mccone % (Auto) 13.4 H Eos % (Auto) 1.6 Baso % (Auto) 0.4 Absolute Neuts (auto) 4.9 Absolute Lymphs (auto) 0.7 L Absolute Monos (auto) 0.9 H Absolute Eos (auto) 0.1 Absolute Basos (auto) 0 Absolute Nucleated RBC 0 Nucleated RBC % 0 Sodium 139 Potassium 4.2 Chloride 110 Carbon Dioxide 24 Anion Gap 5 BUN 27 H Creatinine 0.66 L Est GFR ( Amer) 140.2 Est GFR (Non-Af Amer) 115.8 BUN/Creatinine Ratio 40.9 H Glucose 114 H POC Glucose (mg/dL) 141 H Calcium 8.6 Phosphorus 3.1 Magnesium 1.9 Prealbumin 11 L AXR images reviewed with findings as above. Imp: Early postop pSBO. POD#26 s/p exlap/SBRsxn for closed loop obstruction. No role for surgery in this situation as additional surgery incurs greater risk than continued non-operative management. He needs NGT advanced. Malnutrition due to prolonged NPO status. Plan: Will continue conservative management. I spoke to Dr. Soto about EGD to try to advance the tube. He will assess. Will need to continue TPN.
[2018-08-13] MEDS: Heparin VIAL(*) 5000 UNITS/ML VIAL (FIVE THOUSAND) SUBCUT SCH ×3 (05:50→21:33)
[2018-08-13] MEDS: Pantoprazole IV* 40 MG IV SCH (08:40)
--- NOTE | 2018-08-13 10:39 | PN ---
Progress Note - Progress Note Date of Service: 08/13/18 SOAP: Subjective: Pt seen and examined. NGT remains bothersome. Some burping; abdo pain; no flatus Objective: Temp Pulse Resp BP Pulse Ox 97.5 F 52 16 157/67 96 08/13/18 07:28 08/13/18 07:28 08/13/18 08:48 08/13/18 07:28 08/13/18 07:28 Intake & Output 08/12/18 08/13/18 08/13/18 22:59 06:59 14:59 Intake Total 1938 0 Output Total 300 475 150 Balance 1638 -475 -150 lungs clear b/l abdo: hyperactive BS with high pitched at LUQ, diffusely tender w/o rebound reducible, tender R inguinal hernia ext wnl labs 08/12 noted axr reviewed cw sbo Assessment: SBO 4 weeks s/p laparotomy Plan: CT today Likely OR this weekend- pt aware cont TPN
[2018-08-13] MEDS ORDERED: Iodixanol* (CONTRAST) 320 MG/ML 100 ML SDV IV ONE (11:01)
--- NOTE | 2018-08-13 11:52 | PRO ---
DATE: 08/12/18 - ROOM #[id number] REFERRING PHYSICIAN: Jair Beatty MD.* PROCEDURE: Upper gastrointestinal endoscopy and tube placement in gastric antrum. INDICATION: This 82-year-old man, who had small bowel resection several weeks ago and presents now again with small bowel obstruction, has had difficulty achieving effective NG suction. Today's x-ray shows persisting small bowel obstruction with the impression that the tube is near the EG junction and it resists advancement. He had a paraesophageal hernia repair August 2017 and an inguinal hernia repair April 2018 with mesh. The case was discussed with Dr. Beatty and then with the patient and his . ENDOSCOPIST: Dr. Soto. MEDICATIONS: Midazolam 5, fentanyl 50. FINDINGS: This is a chronically ill-appearing man with an NG tube in place. He was positioned on his side and incremental doses of medication administered. He tolerated them well. EGD: Esophagus easily entered and the mucosa is generally normal, smooth and uninflamed. There is a little bit of irritation at the distal esophagus at about 38. The tube continues into the stomach. It appeared to be in the gastric fundus. It was grasped with a rat tooth forceps and advanced into the gastric antrum. It appeared to stay there. The scope encountered some distortion and angulation in approaching the pylorus. The pylorus was patent and normal appearing without any ulceration. The duodenal bulb appeared normal. The scope passed down 25 to 30 cm into the duodenum and encountered a dilated segment. Air exchanges were made with carbon dioxide. There were no mucosal abnormalities in the distal duodenum or proximal jejunum. Coming back out, the NG tube appeared to still be in the gastric antrum. The grasper was used to try to keep the tube in position. It was noticed that the tube had recoiled in his pharynx and a gloved finger was inserted and used to maintain the distal end of the loop going downstream into the esophagus while the pharyngeal loop was removed. IMPRESSION: 1. Mild distal esophagitis - firm recumbency and reflux in the tube. 2. Placement of tube in the gastric antrum, though inability to advance to the end of the duodenum. 3. Partial small bowel obstruction - continue standard techniques. [id number] #: [id number] [facility]
--- NOTE | 2018-08-13 13:32 | PN ---
Subjective Date of Service: 08/13/18 Interval History: Patient sitting in the chair, appears uncomfortable. c/o abd pain and nausea. Denies chest pain or shortness of breath. Denies fever or chills. NG in place. Family History: Unchanged from Admission Social History: Unchanged from Admission Past Medical History: Unchanged from Admission Objective Active Medications: Acetaminophen (Tylenol Tab*) 650 mg PO Q6H PRN PRN Reason: TEMPERATURE > 101.5 Heparin Sodium (Porcine) (Heparin Vial(*)) 5,000 units SUBCUT Q8HR [facility] Last Admin: 08/13/18 05:50 Dose: 5,000 units Heparin Sodium (Porcine) (Heparin Flush Picc/Ml/Cvc(*)) 1 - 3 ml FLUSH 0600, 1800 [facility]; Protocol Last Admin: 08/13/18 05:50 Dose: Not Given Hydralazine HCl (Apresoline Iv*) 5 mg IV SLOW PU Q6H PRN PRN Reason: BLOOD PRESSURE Last Admin: 08/11/18 07:37 Dose: 5 mg Dextrose 500 ml/ Amino Acids 850 ml/ Sterile Water 150 ml/Fat Emulsion Intravenous 250 ml/ Sodium Chloride 100 meq/Potassium Chloride 50 meq/Potassium Phosphate 15 mmole/Calcium Gluconate 15 meq/Magnesium Sulfate 10 meq/ Multivitamins 10 ml/ Trace Metals 1 ml/ Nutrition ( Parenteral) 1,850.721 mls @ 77.113 mls/hr CENTR 1700 [facility] Last Admin: 08/12/18 19:44 Dose: 77.113 mls/hr Ondansetron HCl (Zofran Inj*) 4 mg IV Q4H PRN PRN Reason: NAUSEA/VOMITING Last Admin: 08/04/18 07:52 Dose: 4 mg Pantoprazole Sodium (Protonix Iv*) 40 mg IV DAILY [facility] Last Admin: 08/13/18 08:40 Dose: 40 mg Vital Signs - 8 hr 08/13/18 08/13/18 07:28 08:48 Temperature 97.5 F Pulse Rate 52 Respiratory 18 16 Rate Blood Pressure 157/67 (mmHg) O2 Sat by Pulse 96 Oximetry Oxygen Devices in Use Now: None Appearance: appears in mild discomfort Eyes: No Scleral Icterus Ears/Nose/Mouth/Throat: Clear Oropharnyx, Mucous Membranes Moist Neck: NL Appearance and Movements; NL JVP, Trachea Midline Respiratory: Symmetrical Chest Expansion and Respiratory Effort, Clear to Auscultation Cardiovascular: NL Sounds; No Murmurs; No JVD, No Edema Abdominal: - - diffuse tenderness to the abd. BS active Extremities: No Edema, No Clubbing, Cyanosis Skin: No Rash or Ulcers Neurological: Alert and Oriented x 3 Nutrition: TPN Result Diagrams: 08/12/18 05:47 08/12/18 05:47 Additional Lab and Data: . Microbiology and Other Data: . Diagnostic Imaging: Patient Name: LIZBETH SANCHES Medical Record#: [id number] Ordering Physician: Verito Stephens MD Acct.#: [id number] : 1935 Age: 82 Sex: M Location: SURGICAL STAY UNIT Exam Date: 08/09/1813 ADM Status: ADM IN Order Information: VL UPPER EXT VEIN DOPPLER LEFT Accession Number: [id number] CPT: 44662 Indication: Evaluate for left arm deep venous thrombosis. Duplex Doppler sonography of the left upper extremity deep venous system was performed. The internal jugular veins demonstrates normal phasic flow bilaterally. The subclavian vein demonstrates successful augmentation and normal phasic flow bilaterally. The left axillary vein and brachial vein appear patent. The left basilic vein appears patent and compressible. PICC line appears in the basilic vein. The left thalamus vein appears to be occluded in the forearm distal to the antecubital space. IMPRESSION: The cephalic vein appears to be thrombosed distal to the antecubital fossa. The PICC line appears to be in the left basilic vein. The remainder of the left upper extremity deep venous system is patent. Patient Name: LIZBETH SANCHES Medical Record#: [id number] Ordering Physician: Jair Beatty MD Acct.#: [id number] : 1935 Age: 82 Sex: M Location: SURGICAL STAY UNIT Exam Date: 08/08/18 1632 ADM Status: ADM IN Order Information: CHEST AP PORTABLE Accession Number: [id number] CPT: 43074 HISTORY: verify PICC placement COMPARISONS: Abdomen series dated August 07, 2018 VIEWS: 1: frontal AP view of the chest at 4:40 PM FINDINGS: LINES AND TUBES: A gastric tube is noted with the tip in the upper abdomen. The tip position is indeterminate with respect to the pylorus. A left-sided PICC line is noted with the tip overlying the superior vena cava. CARDIOMEDIASTINAL SILHOUETTE: The cardiomediastinal silhouette is normal for portable technique. PLEURA: The costophrenic angles are sharp. No pleural abnormalities are noted. LUNG PARENCHYMA: There is hyperinflation with emphysematous change. There is platelike atelectasis of the right lung base. ABDOMEN: Again noted are dilated loops of small bowel consistent with small bowel obstruction. BONES AND SOFT TISSUES: There is diffuse osteopenia. Generative changes are noted of the spine and right shoulder. IMPRESSION: 1. LINES AND TUBES ABOVE. 2. EMPHYSEMA. 3. SMALL BOWEL OBSTRUCTION. Patient Name: LIZBETH SANCHES Medical Record#: [id number] Ordering Physician: Jair Beatty MD Acct.#: [id number] : 1935 Age: 82 Sex: M Location: SURGICAL STAY UNIT Exam Date: 08/09/181499 ADM Status: ADM IN Order Information: CHEST AP PORTABLE Accession Number: [id number] CPT: 00109 Indication: Evaluate for PICC line placement. Single frontal view of the chest performed at 1527 hours was reviewed. Comparison is made with previous exam dated August 08, 2018. No mediastinal shift is noted. Heart is of normal size and configuration. Right basilar atelectasis with small right pleural effusion is noted improved since previous exam. Right-sided PICC line is in place with the tip in the superior vena cava.. IMPRESSION: RIGHT BASE ATELECTASIS WITH RIGHT PLEURAL EFFUSION. PICC LINE IS IN PLACE. EKG Data: . Assess/Plan/Problems-Billing Assessment: An 82 y/o male with PMH HTN, HLD, GERD and recent exploratory laparotomy with small bowel resection on 07/17/18, who was admitted with small bowel obstruction , likely secondary to adhesions. - Patient Problems (1) SBO (small bowel obstruction) Current Visit: Yes Status: Acute Code(s): K56.609 - UNSP INTESTNL OBST, UNSP TO PARTIAL VERSUS COMPLETE OBST SNOMED Code(s): 420560496 Comment: - S/P laporotmy with small bowel resection POD 27 - Management per surgery- possible OR this weekend per Surgery - PICC line placed in RUE after thrombus in LUE. - TPN infusing - CBC and BMP tomorrow - Encouraged ambulation and incentive spirometer (2) HTN (hypertension) Current Visit: Yes Status: Acute Code(s): I10 - ESSENTIAL (PRIMARY) HYPERTENSION SNOMED Code(s): 88309352 Comment: - stable - hydralyzine prn - home meds on hold d/t NPO status (3) GERD (gastroesophageal reflux disease) Current Visit: Yes Status: Acute Code(s): K21.9 - GASTRO-ESOPHAGEAL REFLUX DISEASE WITHOUT ESOPHAGITIS SNOMED Code(s): 160147459 Comment: - Continue PPI coverage (4) Electrolyte abnormality Current Visit: Yes Status: Acute Code(s): E87.8 - OTH DISORDERS OF ELECTROLYTE AND FLUID BALANCE, NEC SNOMED Code(s): 836294036 Comment: - resolved with replacement. continue to monitor (5) BPH (benign prostatic hyperplasia) Current Visit: Yes Status: Chronic Code(s): N40.0 - BENIGN PROSTATIC HYPERPLASIA WITHOUT LOWER URINRY TRACT SYMP SNOMED Code(s): 375032831 Comment: - Voiding with no issues - No symptoms suggesting urinary retention (6) DVT prophylaxis Current Visit: Yes Status: Acute Code(s): WMM4238 - SNOMED Code(s): 164697133 Comment: - SubQ Heparin (7) Full code status Current Visit: Yes Status: Acute Code(s): Z78.9 - OTHER SPECIFIED HEALTH STATUS SNOMED Code(s): 527942074 Status and Disposition: Inpatient under surgical services. Anticipate discharge when medically stable.
--- NOTE | 2018-08-13 14:25 | RAD ---
INDICATION: Small bowel obstruction versus ileus status post laparotomy 4 weeks ago. COMPARISON: Comparison is made with a prior CT of the abdomen and pelvis from August 02, 2018 TECHNIQUE: A CT scan of the abdomen and pelvis was performed with intravenous and without oral contrast following intravenous injection of 65 ml of Visipaque 320 nonionic contrast. Contiguous axial sections were obtained from the lung bases through the symphysis pubis. Images were reconstructed in the coronal and sagittal planes. FINDINGS: LUNG BASES: There are small dependent bilateral lower lobe infiltrates most consistent with atelectasis. There are small bilateral pleural effusions which are new. LIVER: The liver is normal in size. No significant focal abnormality is seen. GALLBLADDER: No calcified gallstones are seen. BILE DUCTS: No intra or extrahepatic ductal distention is seen. SPLEEN: The spleen is normal in size without significant focal abnormality. PANCREAS: The pancreas is normal in size. No ductal distention or calcifications are seen. ADRENAL GLANDS: The adrenal glands are normal in size. KIDNEYS: The kidneys are normal in size. No renal calculi or hydronephrosis is seen. There is a 3.5 x 2.5 cm left renal cyst. AORTA: The aorta is normal in caliber with moderate calcific plaque present. LYMPH NODES: No significantly enlarged lymph nodes are seen. BOWEL: There is a moderate size hiatal hernia. The distal portion of a nasogastric tube is noted coiled within the hiatal hernia. The stomach is nondistended. There is marked distention of the proximal and mid small bowel. The degree of small bowel distention has progressed from the prior exam and measures up to approximately 4.8 cm in transverse dimension. The distal small bowel and colon appear nondistended. There is a transition point in the left upper quadrant which is unchanged. There is a right inguinal hernia containing free intraperitoneal fluid. PELVIC ORGANS: No bladder wall thickening is seen. The prostate gland is enlarged and heterogeneous in density measuring 5.0 cm in transverse dimension. PERITONEUM: There is a small amount of free intraperitoneal fluid which appears similar to the prior exam. No free to peritoneal air is seen. BONES: There is a moderate to severe lumbar scoliosis convex toward the right side. There is diffuse degenerative disc disease throughout the lumbar spine. No fracture is seen. IMPRESSION: 1. HIGH-GRADE MID SMALL BOWEL OBSTRUCTION DEMONSTRATING DEMONSTRATING PROGRESSION FROM THE PRIOR EXAM. THERE IS A TRANSITION POINT IN THE LEFT UPPER QUADRANT. THE POSSIBILITY OF AN INTERNAL HERNIA CANNOT BE EXCLUDED. 2. RIGHT INGUINAL HERNIA CONTAINING FREE INTRAPERITONEAL FLUID. 3. THE DISTAL PORTION OF THE NASOGASTRIC TUBE IS COILED WITHIN A HIATAL HERNIA. 4. NEW SMALL BILATERAL PLEURAL EFFUSIONS. 5. ASCITES, UNCHANGED.
[2018-08-13] MEDS: TPN* 24 HR with Dextrose 50% Water* 500 ML, Amino Acid Infusion 10%* 850 ML, Sterile Wa... CENTR SCH ×12 (17:43)
[2018-08-13] MEDS ORDERED: NS 0.9% 1000 ML* 1,000 ML IV SCH (18:00)
[2018-08-14] MEDS: Heparin VIAL(*) 5000 UNITS/ML VIAL (FIVE THOUSAND) SUBCUT SCH ×3 (06:19→23:45)
[2018-08-14 06:38] LABS: ABS Basophils 0 10^3/ul (0-0.2); ABS Eosinophils 0.1 10^3/ul (0-0.6); ABS Lymphocytes 0.5 10^3/ul (1.0-4.8); ABS Monocytes 0.8 10^3/ul (0-0.8); ABS Neutrophils 7.1 10^3/ul (1.5-7.7); ABS Nucleated RBC 0 10^3/ul; Eosinophil % 1.4 % (0-6); Hematocrit 35 % (42-52); Hemoglobin 11.8 g/dl (14.0-18.0); Lymphocyte % 5.7 % (25-47); Mean Corpuscular HGB Conc 34 g/dl (31-36); Mean Corpuscular Hemoglobin 31 pg (27-31); Mean Corpuscular Volume 91 fL (80-94); Mean Platelet Volume 9.7 um3 (7.4-10.4); Nucleated Red Blood Cells % 0.1; Platelet Count 211 10^3/ul (150-450); Red Blood Count 3.82 10^6/ul (4.00-5.40); Red Cell Distribution Width 16 % (10.5-15); White Blood Count 8.6 10^3/ul (3.5-10.8)
[2018-08-14] MEDS ORDERED: ceFOXitin 2 GM IVPREMIX* 2 GM/50 ML BAG IVPB ONE (06:39)
[2018-08-14 06:49] LABS: EGFR Non-African American 101.5 (>60)
[2018-08-14] MEDS: Pantoprazole IV* 40 MG IV SCH (07:48)
--- NOTE | 2018-08-14 09:45 | PN ---
Subjective Date of Service: 08/14/18 Interval History: Patient continues to report abd pain. Denies chest pain or shortness of breath. Denies n/v/d/. To the OR today ACS-NSQIP calculator gives the patient a below average risk of surgical complications for this surgery. The patient most recent echo in 05/11/18 showed an EF of 50-55% LV wall motion normal, mild . The patient reports that he has not had any chest pain or shortness of breath. is able to participate in daily activities. At this time the patient is an acceptable candidate for surgery. We will continue to follow along post operatively. Family History: Unchanged from Admission Social History: Unchanged from Admission Past Medical History: Unchanged from Admission Objective Active Medications: Acetaminophen (Tylenol Tab*) 650 mg PO Q6H PRN PRN Reason: TEMPERATURE > 101.5 Heparin Sodium (Porcine) (Heparin Vial(*)) 5,000 units SUBCUT Q8HR [facility] Last Admin: 08/14/18 06:19 Dose: Not Given Heparin Sodium (Porcine) (Heparin Flush Picc/Ml/Cvc(*)) 1 - 3 ml FLUSH 0600, 1800 [facility]; Protocol Last Admin: 08/14/18 06:19 Dose: Not Given Hydralazine HCl (Apresoline Iv*) 5 mg IV SLOW PU Q6H PRN PRN Reason: BLOOD PRESSURE Last Admin: 08/11/18 07:37 Dose: 5 mg Dextrose 500 ml/ Amino Acids 850 ml/ Sterile Water 150 ml/Fat Emulsion Intravenous 250 ml/ Sodium Chloride 100 meq/Potassium Chloride 50 meq/Potassium Phosphate 15 mmole/Calcium Gluconate 15 meq/Magnesium Sulfate 10 meq/ Multivitamins 10 ml/ Trace Metals 1 ml/ Nutrition ( Parenteral) 1,850.721 mls @ 77.113 mls/hr CENTR 1700 [facility] Last Admin: 08/13/18 17:43 Dose: 77.113 mls/hr Ondansetron HCl (Zofran Inj*) 4 mg IV Q4H PRN PRN Reason: NAUSEA/VOMITING Last Admin: 08/04/18 07:52 Dose: 4 mg Pantoprazole Sodium (Protonix Iv*) 40 mg IV DAILY [facility] Last Admin: 08/14/18 07:48 Dose: 40 mg Vital Signs - 8 hr 08/14/18 08/14/18 08/14/18 03:07 07:44 08:00 Temperature 98.7 F 98.0 F Pulse Rate 51 52 Respiratory 16 18 18 Rate Blood Pressure 143/59 152/63 (mmHg) O2 Sat by Pulse 96 96 Oximetry Oxygen Devices in Use Now: None Appearance: pale, sitting in bed, no acute distress Eyes: No Scleral Icterus Ears/Nose/Mouth/Throat: Clear Oropharnyx, Mucous Membranes Moist Neck: NL Appearance and Movements; NL JVP, Trachea Midline Respiratory: Symmetrical Chest Expansion and Respiratory Effort, Clear to Auscultation Cardiovascular: NL Sounds; No Murmurs; No JVD, No Edema Abdominal: - - soft, BS active high pitched, NG in place to low wall suction. tenderness to mid abd Extremities: No Edema, No Clubbing, Cyanosis Skin: No Rash or Ulcers Neurological: Alert and Oriented x 3 Nutrition: Taking PO's Result Diagrams: 08/14/18 06:12 08/14/18 06:12 Additional Lab and Data: . Microbiology and Other Data: . Diagnostic Imaging: Patient Name: LIZBETH SANCHES Medical Record#: [id number] Ordering Physician: Verito Stephens MD Acct.#: [id number] : 1935 Age: 82 Sex: M Location: SURGICAL STAY UNIT Exam Date: 08/09/18612 ADM Status: ADM IN Order Information: VL UPPER EXT VEIN DOPPLER LEFT Accession Number: [id number] CPT: 08728 Indication: Evaluate for left arm deep venous thrombosis. Duplex Doppler sonography of the left upper extremity deep venous system was performed. The internal jugular veins demonstrates normal phasic flow bilaterally. The subclavian vein demonstrates successful augmentation and normal phasic flow bilaterally. The left axillary vein and brachial vein appear patent. The left basilic vein appears patent and compressible. PICC line appears in the basilic vein. The left thalamus vein appears to be occluded in the forearm distal to the antecubital space. IMPRESSION: The cephalic vein appears to be thrombosed distal to the antecubital fossa. The PICC line appears to be in the left basilic vein. The remainder of the left upper extremity deep venous system is patent. Patient Name: LIZBETH SANCHES Medical Record#: [id number] Ordering Physician: Jair Beatty MD Acct.#: [id number] : 1935 Age: 82 Sex: M Location: SURGICAL STAY UNIT Exam Date: 08/08/18 1632 ADM Status: ADM IN Order Information: CHEST AP PORTABLE Accession Number: [id number] CPT: 72603 HISTORY: verify PICC placement COMPARISONS: Abdomen series dated August 07, 2018 VIEWS: 1: frontal AP view of the chest at 4:40 PM FINDINGS: LINES AND TUBES: A gastric tube is noted with the tip in the upper abdomen. The tip position is indeterminate with respect to the pylorus. A left-sided PICC line is noted with the tip overlying the superior vena cava. CARDIOMEDIASTINAL SILHOUETTE: The cardiomediastinal silhouette is normal for portable technique. PLEURA: The costophrenic angles are sharp. No pleural abnormalities are noted. LUNG PARENCHYMA: There is hyperinflation with emphysematous change. There is platelike atelectasis of the right lung base. ABDOMEN: Again noted are dilated loops of small bowel consistent with small bowel obstruction. BONES AND SOFT TISSUES: There is diffuse osteopenia. Generative changes are noted of the spine and right shoulder. IMPRESSION: 1. LINES AND TUBES ABOVE. 2. EMPHYSEMA. 3. SMALL BOWEL OBSTRUCTION. Patient Name: LIZBETH SANCHES Medical Record#: [id number] Ordering Physician: Jair Beatty MD Acct.#: [id number] : 1935 Age: 82 Sex: M Location: SURGICAL STAY UNIT Exam Date: 08/09/18 1500 ADM Status: ADM IN Order Information: CHEST AP PORTABLE Accession Number: [id number] CPT: 28674 Indication: Evaluate for PICC line placement. Single frontal view of the chest performed at 1527 hours was reviewed. Comparison is made with previous exam dated August 08, 2018. No mediastinal shift is noted. Heart is of normal size and configuration. Right basilar atelectasis with small right pleural effusion is noted improved since previous exam. Right-sided PICC line is in place with the tip in the superior vena cava.. IMPRESSION: RIGHT BASE ATELECTASIS WITH RIGHT PLEURAL EFFUSION. PICC LINE IS IN PLACE. EKG Data: . Assess/Plan/Problems-Billing Assessment: An 82 y/o male with PMH HTN, HLD, GERD and recent exploratory laparotomy with small bowel resection on 07/17/18, who was admitted with small bowel obstruction , likely secondary to adhesions. - Patient Problems (1) SBO (small bowel obstruction) Current Visit: Yes Status: Acute Code(s): K56.609 - UNSP INTESTNL OBST, UNSP TO PARTIAL VERSUS COMPLETE OBST SNOMED Code(s): 466680310 Comment: - S/P lap. with small bowel resection POD 28 - Management per surgery- possible OR today - PICC line placed in RUE after thrombus in LUE. - TPN infusing - CBC and BMP tomorrow - Encouraged ambulation and incentive spirometer (2) HTN (hypertension) Current Visit: Yes Status: Acute Code(s): I10 - ESSENTIAL (PRIMARY) HYPERTENSION SNOMED Code(s): 97241455 Comment: SBP 140-150's - stable - hydralyzine prn - home meds on hold d/t NPO status (3) GERD (gastroesophageal reflux disease) Current Visit: Yes Status: Acute Code(s): K21.9 - GASTRO-ESOPHAGEAL REFLUX DISEASE WITHOUT ESOPHAGITIS SNOMED Code(s): 679232068 Comment: - Continue PPI coverage (4) Electrolyte abnormality Current Visit: Yes Status: Acute Code(s): E87.8 - OTH DISORDERS OF ELECTROLYTE AND FLUID BALANCE, NEC SNOMED Code(s): 884559967 Comment: - resolved with replacement. continue to monitor (5) BPH (benign prostatic hyperplasia) Current Visit: Yes Status: Chronic Code(s): N40.0 - BENIGN PROSTATIC HYPERPLASIA WITHOUT LOWER URINRY TRACT SYMP SNOMED Code(s): 173704134 Comment: - Voiding with no issues - No symptoms suggesting urinary retention (6) DVT prophylaxis Current Visit: Yes Status: Acute Code(s): ZHM2484 - SNOMED Code(s): 385208955 Comment: - SubQ Heparin- held for surgery this AM (7) Full code status Current Visit: Yes Status: Acute Code(s): Z78.9 - OTHER SPECIFIED HEALTH STATUS SNOMED Code(s): 425934598 Status and Disposition: Inpatient under surgical services. Anticipate discharge when medically stable.
--- NOTE | 2018-08-14 09:45 | PN ---
Progress Note - Progress Note Date of Service: 08/14/18 SOAP: Subjective: Pt seen and examined. No flatus, some abdo pain. Objective: Temp Pulse Resp BP Pulse Ox 98.0 F 52 18 152/63 96 08/14/18 07:44 08/14/18 07:44 08/14/18 08:00 08/14/18 07:44 08/14/18 07:44 Intake & Output 08/13/18 08/14/18 08/14/18 22:59 06:59 14:59 Intake Total 311 0 Output Total 115 700 100 Balance 196 -700 -100 a and o x3 abdo: soft/ mild distension/ tender at LUQ, RLQ w/o rebound labs noted CT reviewed: c/w SBO, recurrent hiatal hernia Assessment: early SBO following DULCE and SB resection 4 weeks ago. no resolution after watchful waiting. Plan: I recommend exploratory laparotomy, possible gastrostomy I feel pt has failed conservative measures. At 82 y o , he represents increased risk perioperatively, and this was discussed with pt and family. We discussed the alternatives of continued conservative management and pt wishes to proceed. Possible complications discusssed that included, prolonged hospitalization, stroke, NE, resp failure, and even .
[2018-08-14] MEDS ORDERED: fentaNYL* 50 MCG/ML 2 ML VIAL (100 MCG VIAL) ONE ×3 (09:52→13:22)
[2018-08-14] MEDS ORDERED: Propofol* 10 MG/ML 20 ML BTL IV PUSH ONE (10:40)
[2018-08-14] MEDS ORDERED: Succinylcholine* 20 MG/ML 10 ML VIAL ONE (10:40)
[2018-08-14] MEDS ORDERED: EPHEDrine (Pressors)* 50 MG/ML VIAL ONE (10:40)
[2018-08-14] MEDS ORDERED: Dexamethasone IV* 4 MG/ML 1 ML (4 MG) ONE (10:40)
[2018-08-14] MEDS ORDERED: Famotidine IV* 10 MG/ML 2 ML (20 mg) ONE (10:40)
[2018-08-14] MEDS ORDERED: Cisatracurium* 2 MG/ML MDV 5 ML ONE (10:56)
[2018-08-14] MEDS ORDERED: Midazolam* 1 MG/ML 2 ML VIAL (2 MG) ONE (10:59)
[2018-08-14] MEDS ORDERED: Bupivacaine 0.25% SDV* 30 ML ONE (11:20)
[2018-08-14] MEDS ORDERED: Buffered Lidocaine 0.9% SYRIN* 5 ML/SYR SYRINGE INTRADERM ONE (11:32)
[2018-08-14] MEDS ORDERED: Ondansetron INJ* 2 MG/ML VIAL IV PRN (11:33)
[2018-08-14] MEDS ORDERED: Acetaminophen IV 1GM/100ML * 10 MG/ML VIAL IVPB ONE (11:33)
[2018-08-14] MEDS ORDERED: DiMENhydriNATE IV* 50 MG/ML VIAL IV PUSH PRN (11:33)
[2018-08-14] MEDS ORDERED: Naloxone* 0.4 MG/ML 1 ML VIAL IV PRN (11:33)
[2018-08-14] MEDS ORDERED: Levalbuterol 0.63MG/3ML NEB* UNIT OF USE INH PRN (11:33)
[2018-08-14] MEDS ORDERED: Ondansetron INJ* 2 MG/ML VIAL ONE (12:21)
--- NOTE | 2018-08-14 12:51 | BRIEFOPN ---
Brief Operative Note - Surgery Procedures: Procedures Pre-OP Diagnoses: SBO Post-op Diagnosis: same Procedure: Exploratory laparotomy, DULCE, gastrostomy Surgeon: Eleanor Asst: Rebecca Anethesia: MARYA EBL: <100cc IVF: crystalloid Specimen: none Drains: G tube, alexandre Complications: None
[2018-08-14] MEDS ORDERED: Naloxone* 0.4 MG/ML 1 ML VIAL IV PUSH PRN (13:07)
[2018-08-14] MEDS ORDERED: hydrALAZINE IV* 20 MG/ML VIAL ONE (13:22)
[2018-08-14] MEDS: hydrALAZINE IV* 20 MG/ML VIAL IV SLOW PU PRN (13:26)
[2018-08-14] MEDS: fentaNYL* 50 MCG/ML 2 ML VIAL (100 MCG VIAL) IV PRN ×5 (13:26→14:08)
[2018-08-14] MEDS ORDERED: Morphine PCA ADULT* 5 MG/ML 30 ML PCA SCH (14:00)
[2018-08-14] MEDS ORDERED: Morphine VIAL* 10 MG/ML 1 ML VIAL ONE (14:39)
[2018-08-14] MEDS: TPN* 24 HR with Dextrose 50% Water* 500 ML, Amino Acid Infusion 10%* 850 ML, Sterile Wa... CENTR SCH ×12 (17:37)
--- NOTE | 2018-08-15 01:45 | OP ---
CC: PCP, Rodrigo Son NP * DATE OF OPERATION: 08/14/18 - ROOM #332 DATE OF : 37 SURGEON: Esa Webster MD BUDDHIST MONK: Dr. Fernandez. ANESTHESIOLOGIST: Dr. Crowder. ANESTHESIA: General anesthesia. PRE-OP DIAGNOSIS: Small bowel obstruction. POST-OP DIAGNOSIS: Small bowel obstruction. OPERATIVE PROCEDURE: Exploratory laparotomy, lysis of adhesions, and insertion of gastrotomy tube. ESTIMATED BLOOD LOSS: Less than 100 cc. FLUIDS: Crystalloid fluid given. See separate report. DRAINS: Santillan catheter as well as a 24-Canadian Santillan in the stomach. CONDITION: The patient extubated and transferred to the PACU in stable condition. SPECIMENS: None. DESCRIPTION OF PROCEDURE: Mr. Roberts was identified in the preoperative area. Consent was obtained after discussion of the risks, benefits, and alternatives. The patient was marked, brought to the operating room and placed on the operating room table in a supine position. Preoperative antibiotics were given. Sequential devices were placed on bilateral lower extremities. General anesthesia was induced. Santillan catheter was inserted. An A-line was also inserted into the left radial artery by the anesthesiologist. Please see separate report for details. The patient's abdomen was then prepped and draped in a standard surgical fashion. A time-out was performed. A midline incision was made, this was deepened down through all layers of the abdominal wall. We started superiorly above the previous incision site and obtained entry into the abdomen. There was scant free fluid identified. Bowel appeared dilated, but pink and intact. We extended our incision slowly through the midline incision freeing up omentum from this midline incision until we were into the abdomen. Small bowel was eviscerated, this was the dilated portion. A omentum that was attached to the anterior abdominal wall did extend under the mesentry of the small bowel and attached itself to the sigmoid colon. This was lysed off the sigmoid colon and the omentum which had a small fibrotic area was then brought out underneath the small bowel. This allowed us to bring more small bowel out through the midline incision and we found two loops of bowel attached to each other and constricting the one distal portion. Band was taken at this site and this allowed us to decompress this portion of the jejunum. We could see this was the culprit. However, this area did have again the two small bowel loops that were very fused to each other and, with both blunt and sharp dissection, we were able to free these two loops and better appreciate the full continuity of the bowel. Once this was done, we could take this ileum which was attached to the jejunum and the transverse mesocolon and placed it back into the proper orientation. The bowel was then dropped back into the abdomen and the stomach was identified. Dilated the stomach with air, fluid was brought into the midline incision. I did extend my hand up towards the wrap and could not really appreciate a wrap from this positioning. Stomach was viable and without any issues. We then placed a 2-0 silk pursestring suture in the anterior aspect of the body of the stomach and then protecting the wound. We made a gastrotomy and suctioned out air and contents. Next, we milked the proximal bowel that had been dilated into the stomach and allowed us to remove this least contents with the suction device. Once this was performed, the suction device was removed and passed off the field. We then placed a 24-Canadian Santillan catheter that had already been inserted through the anterior abdominal wall and placed this into the distal stomach. Pursestring suture was tied and then we brought this up to the anterior abdominal wall and sutured it to the anterior abdominal wall with 2-0 Polysorb sutures using to tack the stomach up at this site. We then reviewed the abdomen, bowel was intact. We ran the bowel again, there was no injury that required any additional intervention. We then irrigated the abdomen. We obtained hemostasis. We reviewed the omentum which can have the fibrotic area that we decided to dissect off and pass away. It was then sent as a specimen. Next, the abdomen was closed with interrupted #1 Vicryl sutures in a figure-of- eight fashion. Wound was then irrigated and reapproximated with skin cal followed by sterile dressing. We did tack the stomach to the anterior abdominal wall. We insufflated the Santillan catheter with 20 cc of water and brought this up to the anterior abdominal wall and sutured it to the skin with a Prolene suture. The patient tolerated the procedure well, was woken up in the OR and transferred to the PACU in stable condition. [id number]/[facility] #: [id number] MADALYN
[2018-08-15] MEDS: Heparin VIAL(*) 5000 UNITS/ML VIAL (FIVE THOUSAND) SUBCUT SCH ×3 (05:59→22:56)
[2018-08-15] MEDS: Pantoprazole IV* 40 MG IV SCH (10:04)
[2018-08-15] MEDS ORDERED: NS 0.9% 500 ML* 500 ML IV ONE (10:30)
[2018-08-15 11:53] LABS: Hematocrit 36 % (42-52); Hemoglobin 11.7 g/dl (14.0-18.0); Mean Corpuscular HGB Conc 33 g/dl (31-36); Mean Corpuscular Hemoglobin 30 pg (27-31); Mean Corpuscular Volume 91 fL (80-94); Red Cell Distribution Width 16 % (10.5-15); White Blood Count 11.7 10^3/ul (3.5-10.8)
[2018-08-15 12:17] LABS: EGFR Non-African American 87.7 (>60)
[2018-08-15 12:39] LABS: ABS Basophils 0 10^3/ul (0-0.2); ABS Eosinophils 0 10^3/ul (0-0.6); ABS Lymphocytes 0.3 10^3/ul (1.0-4.8); ABS Monocytes 1.1 10^3/ul (0-0.8); ABS Neutrophils 10.2 10^3/ul (1.5-7.7); ABS Nucleated RBC 0 10^3/ul; Eosinophil % 0.1 % (0-6); Lymphocyte % 2.9 % (25-47); Nucleated Red Blood Cells % 0.1; Platelet Count 223 10^3/ul (150-450)
[2018-08-15] MEDS ORDERED: TPN* 24 HR with Dextrose 50% Water* 500 ML, Amino Acid Infusion 10%* 850 ML, Sterile Wa... CENTR SCH ×10 (12:46)
--- NOTE | 2018-08-15 12:51 | PN ---
Progress Note - Progress Note Date of Service: 08/15/18 SOAP: Subjective: Pt seen and examined. abdo pain. No nausea, no flatus. not OOB yet Objective: Temp Pulse Resp BP Pulse Ox 98.1 F 107 17 131/72 100 08/15/18 11:36 08/15/18 11:36 08/15/18 11:36 08/15/18 11:36 08/15/18 11:36 a and o x3 abdo: soft/ ND/ tender diffusely but mostly at LUQ labs noted, elevated K Assessment: POD 1 ex lap , gwen, gastrostomy Plan: NPO continue drainage and TPN pain control OOB continue alexandre for now Incentive spirometer GI and dvt proph
--- NOTE | 2018-08-15 16:27 | PN ---
Subjective Date of Service: 08/15/18 Interval History: patient reports that he is feeling a little better. denies chest pain or shortness of breath . c/o abd pain with movement. denies n/v/d Family History: Unchanged from Admission Social History: Unchanged from Admission Past Medical History: Unchanged from Admission Objective Active Medications: Acetaminophen (Tylenol Tab*) 650 mg PO Q6H PRN PRN Reason: TEMPERATURE > 101.5 Heparin Sodium (Porcine) (Heparin Vial(*)) 5,000 units SUBCUT Q8HR [facility] Last Admin: 08/15/18 15:06 Dose: 5,000 units Heparin Sodium (Porcine) (Heparin Flush Picc/Ml/Cvc(*)) 1 - 3 ml FLUSH 0600, 1800 [facility]; Protocol Last Admin: 08/15/18 06:07 Dose: Not Given Hydralazine HCl (Apresoline Iv*) 5 mg IV SLOW PU Q6H PRN PRN Reason: BLOOD PRESSURE Last Admin: 08/14/18 13:26 Dose: 5 mg Morphine Sulfate (Morphine Swatch Folder Adult* 5 Mg/Ml) 30 mls @ 0 mls/hr LAYAWAY CLERK .change Q24H [facility]; Protocol Last Admin: 08/14/18 15:57 Dose: 1 mls/hr Dextrose 500 ml/ Amino Acids 850 ml/ Sterile Water 150 ml/Fat Emulsion Intravenous 250 ml/ Sodium Chloride 100 meq/Calcium Gluconate 15 meq/Magnesium Sulfate 10 meq/Multivitamins 10 ml/ Trace Metals 1 ml/ Nutrition ( Parenteral) 1,820.721 mls @ 75.863 mls/hr CENTR 1700 ERIN Sodium Chloride (Ns 0.9% 1000 Ml*) 1,000 mls @ 75 mls/hr IV PER RATE [facility] Stop: 08/16/18 07:04 Ondansetron HCl (Zofran Inj*) 4 mg IV Q4H PRN PRN Reason: NAUSEA/VOMITING Last Admin: 08/04/18 07:52 Dose: 4 mg Pantoprazole Sodium (Protonix Iv*) 40 mg IV DAILY [facility] Last Admin: 08/15/18 10:04 Dose: 40 mg Vital Signs - 8 hr 08/15/18 08/15/18 08/15/18 09:00 09:21 11:00 Temperature Pulse Rate Respiratory 18 16 Rate Blood Pressure (mmHg) O2 Sat by Pulse 95 97 97 Oximetry 08/15/18 08/15/18 08/15/18 11:36 13:00 15:00 Temperature 98.1 F Pulse Rate 107 Respiratory 17 16 16 Rate Blood Pressure 131/72 (mmHg) O2 Sat by Pulse 100 96 95 Oximetry 08/15/18 15:13 Temperature 97.8 F Pulse Rate 106 Respiratory 18 Rate Blood Pressure 148/71 (mmHg) O2 Sat by Pulse 98 Oximetry Oxygen Devices in Use Now: None Appearance: appears comfortable , no acute distress alert and oriented x 3 Eyes: No Scleral Icterus Ears/Nose/Mouth/Throat: Clear Oropharnyx, Mucous Membranes Moist Neck: NL Appearance and Movements; NL JVP, Trachea Midline Respiratory: Symmetrical Chest Expansion and Respiratory Effort, Clear to Auscultation, - - diminished in the bases bilat Cardiovascular: NL Sounds; No Murmurs; No JVD, No Edema, - - tachycardic Abdominal: - - diffuse abd tenderness, soft, dresssing intact to mid abd , g tube inplace Extremities: No Edema, No Clubbing, Cyanosis Skin: No Rash or Ulcers Neurological: Alert and Oriented x 3 Nutrition: Taking PO's Result Diagrams: 08/15/18 11:00 08/15/18 11:00 Additional Lab and Data: . Microbiology and Other Data: . Diagnostic Imaging: Patient Name: LIZBETH SANCHES Medical Record#: [id number] Ordering Physician: Verito Stephens MD Acct.#: [id number] : 1935 Age: 82 Sex: M Location: SURGICAL STAY UNIT Exam Date: 08/09/18612 ADM Status: ADM IN Order Information: VL UPPER EXT VEIN DOPPLER LEFT Accession Number: [id number] CPT: 37250 Indication: Evaluate for left arm deep venous thrombosis. Duplex Doppler sonography of the left upper extremity deep venous system was performed. The internal jugular veins demonstrates normal phasic flow bilaterally. The subclavian vein demonstrates successful augmentation and normal phasic flow bilaterally. The left axillary vein and brachial vein appear patent. The left basilic vein appears patent and compressible. PICC line appears in the basilic vein. The left thalamus vein appears to be occluded in the forearm distal to the antecubital space. IMPRESSION: The cephalic vein appears to be thrombosed distal to the antecubital fossa. The PICC line appears to be in the left basilic vein. The remainder of the left upper extremity deep venous system is patent. Patient Name: LIZBETH SANCHES Medical Record#: [id number] Ordering Physician: Jair Beatty MD Acct.#: [id number] : 1935 Age: 82 Sex: M Location: SURGICAL STAY UNIT Exam Date: 08/08/18 1632 ADM Status: ADM IN Order Information: CHEST AP PORTABLE Accession Number: [id number] CPT: 11084 HISTORY: verify PICC placement COMPARISONS: Abdomen series dated August 07, 2018 VIEWS: 1: frontal AP view of the chest at 4:40 PM FINDINGS: LINES AND TUBES: A gastric tube is noted with the tip in the upper abdomen. The tip position is indeterminate with respect to the pylorus. A left-sided PICC line is noted with the tip overlying the superior vena cava. CARDIOMEDIASTINAL SILHOUETTE: The cardiomediastinal silhouette is normal for portable technique. PLEURA: The costophrenic angles are sharp. No pleural abnormalities are noted. LUNG PARENCHYMA: There is hyperinflation with emphysematous change. There is platelike atelectasis of the right lung base. ABDOMEN: Again noted are dilated loops of small bowel consistent with small bowel obstruction. BONES AND SOFT TISSUES: There is diffuse osteopenia. Generative changes are noted of the spine and right shoulder. IMPRESSION: 1. LINES AND TUBES ABOVE. 2. EMPHYSEMA. 3. SMALL BOWEL OBSTRUCTION. Patient Name: LIZBETH SANCHES Medical Record#: [id number] Ordering Physician: Jair Beatty MD Acct.#: [id number] : 1935 Age: 82 Sex: M Location: SURGICAL STAY UNIT Exam Date: 08/09/18 1500 ADM Status: ADM IN Order Information: CHEST AP PORTABLE Accession Number: [id number] CPT: 86033 Indication: Evaluate for PICC line placement. Single frontal view of the chest performed at 1527 hours was reviewed. Comparison is made with previous exam dated August 08, 2018. No mediastinal shift is noted. Heart is of normal size and configuration. Right basilar atelectasis with small right pleural effusion is noted improved since previous exam. Right-sided PICC line is in place with the tip in the superior vena cava.. IMPRESSION: RIGHT BASE ATELECTASIS WITH RIGHT PLEURAL EFFUSION. PICC LINE IS IN PLACE. EKG Data: . Assess/Plan/Problems-Billing Assessment: An 82 y/o male with PMH HTN, HLD, GERD and recent exploratory laparotomy with small bowel resection on 07/17/18, who was admitted with small bowel obstruction , likely secondary to adhesions. - Patient Problems (1) SBO (small bowel obstruction) Current Visit: Yes Status: Acute Code(s): K56.609 - UNSP INTESTNL OBST, UNSP TO PARTIAL VERSUS COMPLETE OBST SNOMED Code(s): 385280136 Comment: - POD #1 g-tube placement / Lysis of adhesions - Management per surgery- possible OR today - PICC line placed in RUE after thrombus in LUE. - TPN infusing - CBC and BMP tomorrow - Encouraged ambulation and incentive spirometer - patient appears dry , skinis tenting , patient is tachycardic - will give NS 500cc and then NS at 75 cc/hr (2) HTN (hypertension) Current Visit: Yes Status: Acute Code(s): I10 - ESSENTIAL (PRIMARY) HYPERTENSION SNOMED Code(s): 97186299 Comment: SBP 140-150's - stable - hydralyzine prn - home meds on hold d/t NPO status (3) GERD (gastroesophageal reflux disease) Current Visit: Yes Status: Acute Code(s): K21.9 - GASTRO-ESOPHAGEAL REFLUX DISEASE WITHOUT ESOPHAGITIS SNOMED Code(s): 125522095 Comment: - Continue PPI coverage (4) Electrolyte abnormality Current Visit: Yes Status: Acute Code(s): E87.8 - OTH DISORDERS OF ELECTROLYTE AND FLUID BALANCE, NEC SNOMED Code(s): 429654559 Comment: - resolved with replacement. continue to monitor (5) BPH (benign prostatic hyperplasia) Current Visit: Yes Status: Chronic Code(s): N40.0 - BENIGN PROSTATIC HYPERPLASIA WITHOUT LOWER URINRY TRACT SYMP SNOMED Code(s): 983388991 Comment: - Voiding with no issues - No symptoms suggesting urinary retention (6) DVT prophylaxis Current Visit: Yes Status: Acute Code(s): LET7813 - SNOMED Code(s): 187542535 Comment: - SubQ Heparin- held for surgery this AM (7) Full code status Current Visit: Yes Status: Acute Code(s): Z78.9 - OTHER SPECIFIED HEALTH STATUS SNOMED Code(s): 647056167 Status and Disposition: Inpatient under surgical services. Anticipate discharge when medically stable.
[2018-08-15] MEDS ORDERED: NS 0.9% 1000 ML* 1,000 ML IV SCH (17:45)
[2018-08-16] MEDS: Heparin VIAL(*) 5000 UNITS/ML VIAL (FIVE THOUSAND) SUBCUT SCH ×3 (06:02→23:02)
[2018-08-16 07:14] LABS: ABS Basophils 0 10^3/ul (0-0.2); ABS Eosinophils 0.1 10^3/ul (0-0.6); ABS Lymphocytes 0.4 10^3/ul (1.0-4.8); ABS Monocytes 0.9 10^3/ul (0-0.8); ABS Neutrophils 7.5 10^3/ul (1.5-7.7); ABS Nucleated RBC 0 10^3/ul; Eosinophil % 1.3 % (0-6); Hematocrit 28 % (42-52); Hemoglobin 9.7 g/dl (14.0-18.0); Lymphocyte % 4.8 % (25-47); Mean Corpuscular HGB Conc 34 g/dl (31-36); Mean Corpuscular Hemoglobin 31 pg (27-31); Mean Corpuscular Volume 90 fL (80-94); Mean Platelet Volume 8.7 um3 (7.4-10.4); Nucleated Red Blood Cells % 0; Platelet Count 205 10^3/ul (150-450); Red Blood Count 3.15 10^6/ul (4.00-5.40); Red Cell Distribution Width 16 % (10.5-15); White Blood Count 8.9 10^3/ul (3.5-10.8)
[2018-08-16 07:28] LABS: INR 1.14 (0.77-1.02)
[2018-08-16 07:59] LABS: EGFR Non-African American 122.2 (>60)
--- NOTE | 2018-08-16 08:40 | PN ---
Subjective Date of Service: 08/16/18 Interval History: Patient reports feeling better today. does reports abd pain, increased with movement and palpation. Denies chest pain or palpitations. denies shortness of breath. Denies fever or chills. denies n/v/d. Family History: Unchanged from Admission Social History: Unchanged from Admission Past Medical History: Unchanged from Admission Objective Active Medications: Acetaminophen (Tylenol Tab*) 650 mg PO Q6H PRN PRN Reason: TEMPERATURE > 101.5 Heparin Sodium (Porcine) (Heparin Vial(*)) 5,000 units SUBCUT Q8HR [facility] Last Admin: 08/16/18 06:02 Dose: 5,000 units Heparin Sodium (Porcine) (Heparin Flush Picc/Ml/Cvc(*)) 1 - 3 ml FLUSH 0600, 1800 [facility]; Protocol Last Admin: 08/16/18 06:09 Dose: Not Given Hydralazine HCl (Apresoline Iv*) 5 mg IV SLOW PU Q6H PRN PRN Reason: BLOOD PRESSURE Last Admin: 08/14/18 13:26 Dose: 5 mg Morphine Sulfate (Morphine Public Opinion Survey Taker Adult* 5 Mg/Ml) 30 mls @ 0 mls/hr LEAD BLENDER .change Q24H [facility]; Protocol Last Admin: 08/14/18 15:57 Dose: 1 mls/hr Dextrose 500 ml/ Amino Acids 850 ml/ Sterile Water 150 ml/Fat Emulsion Intravenous 250 ml/ Sodium Chloride 100 meq/Calcium Gluconate 15 meq/Magnesium Sulfate 10 meq/Multivitamins 10 ml/ Trace Metals 1 ml/ Nutrition ( Parenteral) 1,820.721 mls @ 75.863 mls/hr CENTR 1700 [facility] Last Admin: 08/15/18 17:02 Dose: 75.863 mls/hr Ondansetron HCl (Zofran Inj*) 4 mg IV Q4H PRN PRN Reason: NAUSEA/VOMITING Last Admin: 08/04/18 07:52 Dose: 4 mg Pantoprazole Sodium (Protonix Iv*) 40 mg IV DAILY [facility] Last Admin: 08/15/18 10:04 Dose: 40 mg Vital Signs - 8 hr 08/16/18 08/16/18 08/16/18 01:00 01:03 03:00 Temperature 97.9 F Pulse Rate 111 Respiratory 16 16 20 Rate Blood Pressure 134/68 (mmHg) O2 Sat by Pulse 96 98 95 Oximetry 08/16/18 08/16/18 08/16/18 04:42 05:00 07:00 Temperature 98.2 F Pulse Rate 113 Respiratory 16 16 16 Rate Blood Pressure 142/72 (mmHg) O2 Sat by Pulse 97 94 98 Oximetry Oxygen Devices in Use Now: None Appearance: appears comfortable, alert and orietned x3, no acute distress Eyes: No Scleral Icterus Ears/Nose/Mouth/Throat: NL Teeth, Lips, Gums, Mucous Membranes Moist Neck: NL Appearance and Movements; NL JVP, Trachea Midline Respiratory: Symmetrical Chest Expansion and Respiratory Effort, Clear to Auscultation Cardiovascular: NL Sounds; No Murmurs; No JVD, No Edema Abdominal: - - dressing intact to abd. abd soft, BS active x4 Extremities: No Edema, No Clubbing, Cyanosis Skin: No Rash or Ulcers, No Nodules or Sclerosis Neurological: Alert and Oriented x 3 Nutrition: TPN Result Diagrams: 08/16/18 06:57 08/16/18 06:57 Additional Lab and Data: . Microbiology and Other Data: . Diagnostic Imaging: Patient Name: LIZBETH SANCHES Medical Record#: [id number] Ordering Physician: Verito Stephens MD Acct.#: [id number] : 1935 Age: 82 Sex: M Location: SURGICAL STAY UNIT Exam Date: 08/09/18612 ADM Status: ADM IN Order Information: VL UPPER EXT VEIN DOPPLER LEFT Accession Number: [id number] CPT: 65945 Indication: Evaluate for left arm deep venous thrombosis. Duplex Doppler sonography of the left upper extremity deep venous system was performed. The internal jugular veins demonstrates normal phasic flow bilaterally. The subclavian vein demonstrates successful augmentation and normal phasic flow bilaterally. The left axillary vein and brachial vein appear patent. The left basilic vein appears patent and compressible. PICC line appears in the basilic vein. The left thalamus vein appears to be occluded in the forearm distal to the antecubital space. IMPRESSION: The cephalic vein appears to be thrombosed distal to the antecubital fossa. The PICC line appears to be in the left basilic vein. The remainder of the left upper extremity deep venous system is patent. Patient Name: LIZBETH SANCHES Medical Record#: [id number] Ordering Physician: Jair Beatty MD Acct.#: [id number] : 1935 Age: 82 Sex: M Location: SURGICAL STAY UNIT Exam Date: 08/08/18 1632 ADM Status: ADM IN Order Information: CHEST AP PORTABLE Accession Number: [id number] CPT: 13506 HISTORY: verify PICC placement COMPARISONS: Abdomen series dated August 07, 2018 VIEWS: 1: frontal AP view of the chest at 4:40 PM FINDINGS: LINES AND TUBES: A gastric tube is noted with the tip in the upper abdomen. The tip position is indeterminate with respect to the pylorus. A left-sided PICC line is noted with the tip overlying the superior vena cava. CARDIOMEDIASTINAL SILHOUETTE: The cardiomediastinal silhouette is normal for portable technique. PLEURA: The costophrenic angles are sharp. No pleural abnormalities are noted. LUNG PARENCHYMA: There is hyperinflation with emphysematous change. There is platelike atelectasis of the right lung base. ABDOMEN: Again noted are dilated loops of small bowel consistent with small bowel obstruction. BONES AND SOFT TISSUES: There is diffuse osteopenia. Generative changes are noted of the spine and right shoulder. IMPRESSION: 1. LINES AND TUBES ABOVE. 2. EMPHYSEMA. 3. SMALL BOWEL OBSTRUCTION. Patient Name: LIZBETH SANCHES Medical Record#: [id number] Ordering Physician: Jair Beatty MD Acct.#: [id number] : 1935 Age: 82 Sex: M Location: SURGICAL STAY UNIT Exam Date: 08/09/18 1500 ADM Status: ADM IN Order Information: CHEST AP PORTABLE Accession Number: [id number] CPT: 31405 Indication: Evaluate for PICC line placement. Single frontal view of the chest performed at 1527 hours was reviewed. Comparison is made with previous exam dated August 08, 2018. No mediastinal shift is noted. Heart is of normal size and configuration. Right basilar atelectasis with small right pleural effusion is noted improved since previous exam. Right-sided PICC line is in place with the tip in the superior vena cava.. IMPRESSION: RIGHT BASE ATELECTASIS WITH RIGHT PLEURAL EFFUSION. PICC LINE IS IN PLACE. EKG Data: . Assess/Plan/Problems-Billing Assessment: An 82 y/o male with PMH HTN, HLD, GERD and recent exploratory laparotomy with small bowel resection on 07/17/18, who was admitted with small bowel obstruction , likely secondary to adhesions. - Patient Problems (1) SBO (small bowel obstruction) Current Visit: Yes Status: Acute Code(s): K56.609 - UNSP INTESTNL OBST, UNSP TO PARTIAL VERSUS COMPLETE OBST SNOMED Code(s): 498145146 Comment: - POD #2 g-tube placement / Lysis of adhesions - Management per surgery - PICC line placed in RUE after thrombus in LUE. - TPN infusing - Encouraged ambulation and incentive spirometer - patient appears dry , skin is tenting , patient is tachycardic, NS at 75 cc/ hx 1 liter- will continue to monitor (2) Tachycardia Current Visit: Yes Status: Acute Code(s): R00.0 - TACHYCARDIA, UNSPECIFIED SNOMED Code(s): 2317120 Comment: suspect this is related to recent surgery pain and mild dehydration - appears dry, skin with tenting, I/O with negative balance, tachycardic - given IVF yesterday - UOP improved - will continue NSx 1 liter (3) HTN (hypertension) Current Visit: Yes Status: Acute Code(s): I10 - ESSENTIAL (PRIMARY) HYPERTENSION SNOMED Code(s): 06281622 Comment: SBP 140-150's - stable - hydralyzine prn - home meds on hold d/t NPO status (4) GERD (gastroesophageal reflux disease) Current Visit: Yes Status: Acute Code(s): K21.9 - GASTRO-ESOPHAGEAL REFLUX DISEASE WITHOUT ESOPHAGITIS SNOMED Code(s): 888915643 Comment: - Continue PPI coverage (5) Electrolyte abnormality Current Visit: Yes Status: Acute Code(s): E87.8 - OTH DISORDERS OF ELECTROLYTE AND FLUID BALANCE, NEC SNOMED Code(s): 341841145 Comment: - resolved with replacement. continue to monitor (6) BPH (benign prostatic hyperplasia) Current Visit: Yes Status: Chronic Code(s): N40.0 - BENIGN PROSTATIC HYPERPLASIA WITHOUT LOWER URINRY TRACT SYMP SNOMED Code(s): 688603871 Comment: - alexandre patent - No symptoms (7) DVT prophylaxis Current Visit: Yes Status: Acute Code(s): KST1396 - SNOMED Code(s): 534269695 Comment: - SubQ Heparin- held for surgery this AM (8) Full code status Current Visit: Yes Status: Acute Code(s): Z78.9 - OTHER SPECIFIED HEALTH STATUS SNOMED Code(s): 749802619 Status and Disposition: Inpatient under surgical services. Anticipate discharge when medically stable.
[2018-08-16] MEDS ORDERED: NS 0.9% 1000 ML* 1,000 ML IV SCH (09:15)
[2018-08-16] MEDS: Pantoprazole IV* 40 MG IV SCH (09:54)
--- NOTE | 2018-08-16 10:10 | PN ---
Progress Note - Progress Note Date of Service: 08/16/18 SOAP: Subjective: Pt seen and examined. Feeling a little better today no nausea, no flatus. abdo pain Objective: Temp Pulse Resp BP Pulse Ox 98.2 F 113 16 142/72 98 08/16/18 04:42 08/16/18 04:42 08/16/18 07:00 08/16/18 04:42 08/16/18 07:00 Intake & Output 08/15/18 08/16/18 08/16/18 22:59 06:59 14:59 Intake Total 2212 982 Output Total 425 Balance 1787 982 tachycardic a and o x3 lungs clear at apices, decreases b/l bases abdo: soft/ ND/ tender diffusely gastrostomy bilious output; dressing intact no calf tenderness labs noted. H/H down, wbc down Assessment: POD 2 ex lap, gwen, gastrostomy, tachycardic, but I do not feel he is total body volume down Plan: Beta temitope tpn ice chips ok OOB resp consult pain control
[2018-08-16] MEDS: Metoprolol Tartrate IV* 1 MG/ML 5 ML VIAL IV SCH ×3 (10:35→23:01)
[2018-08-16] MEDS ORDERED: TPN* 24 HR with Dextrose 50% Water* 500 ML, Amino Acid Infusion 10%* 850 ML, Sterile Wa... CENTR SCH ×12 (17:00)
[2018-08-17] MEDS: Metoprolol Tartrate IV* 1 MG/ML 5 ML VIAL IV SCH ×4 (04:29→23:36)
[2018-08-17 05:19] LABS: ABS Basophils 0 10^3/ul (0-0.2); ABS Eosinophils 0.3 10^3/ul (0-0.6); ABS Lymphocytes 0.5 10^3/ul (1.0-4.8); ABS Monocytes 0.7 10^3/ul (0-0.8); ABS Neutrophils 6.8 10^3/ul (1.5-7.7); ABS Nucleated RBC 0 10^3/ul; Eosinophil % 3.3 % (0-6); Hematocrit 27 % (42-52); Hemoglobin 9.2 g/dl (14.0-18.0); Lymphocyte % 6.2 % (25-47); Mean Corpuscular HGB Conc 34 g/dl (31-36); Mean Corpuscular Hemoglobin 31 pg (27-31); Mean Corpuscular Volume 91 fL (80-94); Mean Platelet Volume 8.6 um3 (7.4-10.4); Nucleated Red Blood Cells % 0; Platelet Count 235 10^3/ul (150-450); Red Cell Distribution Width 16 % (10.5-15); White Blood Count 8.3 10^3/ul (3.5-10.8)
[2018-08-17] MEDS: Heparin VIAL(*) 5000 UNITS/ML VIAL (FIVE THOUSAND) SUBCUT SCH ×3 (06:29→23:37)
[2018-08-17] MEDS: Pantoprazole IV* 40 MG IV SCH (09:12)
--- NOTE | 2018-08-17 13:37 | PN ---
Subjective Date of Service: 08/17/18 Interval History: Patient is feeling about the same as yesterday with stable abdominal pain. Patient has had no flatus or bowel movements. Patient denies dizziness on standing, chest pain, shortness of breath, palpitations, weakness, spasms, or other pain. Family concerned about seeming lack of progression in bowel motility. Family History: Unchanged from Admission Social History: Unchanged from Admission Past Medical History: Unchanged from Admission Objective Active Medications: Acetaminophen (Tylenol Tab*) 650 mg PO Q6H PRN PRN Reason: TEMPERATURE > 101.5 Heparin Sodium (Porcine) (Heparin Vial(*)) 5,000 units SUBCUT Q8HR [facility] Last Admin: 08/17/18 06:29 Dose: 5,000 units Heparin Sodium (Porcine) (Heparin Flush Picc/Ml/Cvc(*)) 1 - 3 ml FLUSH 0600, 1800 [facility]; Protocol Last Admin: 08/17/18 05:18 Dose: Not Given Hydralazine HCl (Apresoline Iv*) 5 mg IV SLOW PU Q6H PRN PRN Reason: BLOOD PRESSURE Last Admin: 08/14/18 13:26 Dose: 5 mg Morphine Sulfate (Morphine Pocket Setter Lockstitch Adult* 5 Mg/Ml) 30 mls @ 0 mls/hr [employer] .change Q24H [facility]; Protocol Last Admin: 08/14/18 15:57 Dose: 1 mls/hr Dextrose 500 ml/ Amino Acids 850 ml/ Sterile Water 150 ml/Fat Emulsion Intravenous 250 ml/ Sodium Chloride 50 meq/Potassium Chloride 20 meq/Potassium Phosphate 15 mmole/Calcium Gluconate 15 meq/Magnesium Sulfate 20 meq/ Multivitamins 10 ml/ Trace Metals 1 ml/ Nutrition ( Parenteral) 1,825.6841 mls @ 76.07 mls/hr CENTR 1700 [facility] Stop: 08/17/18 16:59 Last Admin: 08/16/18 16:36 Dose: 76.07 mls/hr Dextrose 500 ml/ Amino Acids 850 ml/ Sterile Water 150 ml/Fat Emulsion Intravenous 250 ml/ Sodium Chloride 25 meq/Sodium Acetate 25 meq/Potassium Chloride 40 meq/Potassium Phosphate 20 mmole/Calcium Gluconate 10 meq/Magnesium Sulfate 20 meq/Multivitamins 10 ml/ Trace Metals 1 ml/ Nutrition ( Parenteral) 1,832.8478 mls @ 76.369 mls/hr CENTR 1700 [facility] Metoprolol Tartrate (Lopressor Iv*) 5 mg IV Q6H [facility] Last Admin: 08/17/18 09:12 Dose: 5 mg Ondansetron HCl (Zofran Inj*) 4 mg IV Q4H PRN PRN Reason: NAUSEA/VOMITING Last Admin: 08/04/18 07:52 Dose: 4 mg Pantoprazole Sodium (Protonix Iv*) 40 mg IV DAILY [facility] Last Admin: 08/17/18 09:12 Dose: 40 mg Vital Signs - 8 hr 08/17/18 08/17/18 08/17/18 07:21 08:00 08:07 Temperature 97.8 F 97.8 F Pulse Rate 91 84 Respiratory 16 16 16 Rate Blood Pressure 142/76 150/82 (mmHg) O2 Sat by Pulse 98 95 95 Oximetry 08/17/18 08/17/18 08/17/18 09:13 10:00 11:35 Temperature 98.2 F Pulse Rate 94 Respiratory 18 16 Rate Blood Pressure 155/84 (mmHg) O2 Sat by Pulse 94 94 97 Oximetry 08/17/18 12:00 Temperature Pulse Rate Respiratory 15 Rate Blood Pressure (mmHg) O2 Sat by Pulse 93 Oximetry Oxygen Devices in Use Now: None Appearance: Patient is an 82yo male who appears stated age and is sitting in the chair in [facility]. Eyes: No Scleral Icterus, PERRLA Ears/Nose/Mouth/Throat: NL Teeth, Lips, Gums, Clear Oropharnyx, Mucous Membranes Moist Neck: NL Appearance and Movements; NL JVP, Trachea Midline Respiratory: Symmetrical Chest Expansion and Respiratory Effort, Clear to Auscultation Cardiovascular: RRR, No Edema, - - Grade 3/6 EILEEN heard best at RUSB. Abdominal: No Hepatosplenomegaly, - - Diminished bowel sounds. Midline incision without discharge or erythema. Lymphatic: No Cervical Adenopathy Extremities: No Edema Skin: No Nodules or Sclerosis Neurological: Alert and Oriented x 3, NL Sensation, NL Muscle Strength and Tone , - - CN II-XII intact. Result Diagrams: 08/17/18 04:55 08/17/18 04:55 Additional Lab and Data: . Microbiology and Other Data: . Diagnostic Imaging: Patient Name: LIZBETH SANCHES Medical Record#: [id number] Ordering Physician: Verito Stephens MD Acct.#: [id number] : 1935 Age: 82 Sex: M Location: SURGICAL STAY UNIT Exam Date: 08/09/18 0613 ADM Status: ADM IN Order Information: VL UPPER EXT VEIN DOPPLER LEFT Accession Number: [id number] CPT: 83137 Indication: Evaluate for left arm deep venous thrombosis. Duplex Doppler sonography of the left upper extremity deep venous system was performed. The internal jugular veins demonstrates normal phasic flow bilaterally. The subclavian vein demonstrates successful augmentation and normal phasic flow bilaterally. The left axillary vein and brachial vein appear patent. The left basilic vein appears patent and compressible. PICC line appears in the basilic vein. The left thalamus vein appears to be occluded in the forearm distal to the antecubital space. IMPRESSION: The cephalic vein appears to be thrombosed distal to the antecubital fossa. The PICC line appears to be in the left basilic vein. The remainder of the left upper extremity deep venous system is patent. Patient Name: LIZBETH SANCHES Medical Record#: [id number] Ordering Physician: Jair Beatty MD Acct.#: [id number] : 1935 Age: 82 Sex: M Location: SURGICAL STAY UNIT Exam Date: 08/08/18 1632 ADM Status: ADM IN Order Information: CHEST AP PORTABLE Accession Number: [id number] CPT: 65524 HISTORY: verify PICC placement COMPARISONS: Abdomen series dated August 07, 2018 VIEWS: 1: frontal AP view of the chest at 4:40 PM FINDINGS: LINES AND TUBES: A gastric tube is noted with the tip in the upper abdomen. The tip position is indeterminate with respect to the pylorus. A left-sided PICC line is noted with the tip overlying the superior vena cava. CARDIOMEDIASTINAL SILHOUETTE: The cardiomediastinal silhouette is normal for portable technique. PLEURA: The costophrenic angles are sharp. No pleural abnormalities are noted. LUNG PARENCHYMA: There is hyperinflation with emphysematous change. There is platelike atelectasis of the right lung base. ABDOMEN: Again noted are dilated loops of small bowel consistent with small bowel obstruction. BONES AND SOFT TISSUES: There is diffuse osteopenia. Generative changes are noted of the spine and right shoulder. IMPRESSION: 1. LINES AND TUBES ABOVE. 2. EMPHYSEMA. 3. SMALL BOWEL OBSTRUCTION. Patient Name: LIZBETH SANCHES Medical Record#: [id number] Ordering Physician: Jair Beatty MD Acct.#: [id number] : 1935 Age: 82 Sex: M Location: SURGICAL STAY UNIT Exam Date: 08/09/18 1500 ADM Status: ADM IN Order Information: CHEST AP PORTABLE Accession Number: [id number] CPT: 50297 Indication: Evaluate for PICC line placement. Single frontal view of the chest performed at 1527 hours was reviewed. Comparison is made with previous exam dated August 08, 2018. No mediastinal shift is noted. Heart is of normal size and configuration. Right basilar atelectasis with small right pleural effusion is noted improved since previous exam. Right-sided PICC line is in place with the tip in the superior vena cava.. IMPRESSION: RIGHT BASE ATELECTASIS WITH RIGHT PLEURAL EFFUSION. PICC LINE IS IN PLACE. EKG Data: . Assess/Plan/Problems-Billing Assessment: An 82 y/o male with PMH HTN, HLD, GERD and recent exploratory laparotomy with small bowel resection on 07/17/18, who was admitted with small bowel obstruction , likely secondary to adhesions who is now POD 3 after a DULCE and Gastrostomy. - Patient Problems (1) SBO (small bowel obstruction) Current Visit: Yes Status: Acute Code(s): K56.609 - UNSP INTESTNL OBST, UNSP TO PARTIAL VERSUS COMPLETE OBST SNOMED Code(s): 466421271 Comment: - POD #3 Gastrostomy Placement / Lysis of adhesions - Management per surgery - PICC line placed in RUE after thrombus in LUE. - TPN infusing - Encouraged ambulation and incentive spirometer - Appears euvolemic today, tachycardia improving. (2) Aortic stenosis Current Visit: Yes Status: Acute Code(s): I35.0 - NONRHEUMATIC AORTIC (VALVE ) STENOSIS SNOMED Code(s): 81099673 Comment: - Asymptomatic, moderate on ECHO 05/11/18. (3) Electrolyte abnormality Current Visit: Yes Status: Acute Code(s): E87.8 - OTH DISORDERS OF ELECTROLYTE AND FLUID BALANCE, NEC SNOMED Code(s): 734730132 Comment: - Slight hypophosphatemia, asymptomatic, Potassium, magnesium WNL. - Replace as needed. Continue to monitor per TPN protocol. (4) GERD (gastroesophageal reflux disease) Current Visit: Yes Status: Acute Code(s): K21.9 - GASTRO-ESOPHAGEAL REFLUX DISEASE WITHOUT ESOPHAGITIS SNOMED Code(s): 038268230 Comment: - Continue PPI coverage IV (5) HTN (hypertension) Current Visit: Yes Status: Acute Code(s): I10 - ESSENTIAL (PRIMARY) HYPERTENSION SNOMED Code(s): 39336423 Comment: - SBP 140-150's - stable - Hydralyzine prn, Scheduled Metroprolol IV. - Home meds on hold d/t NPO status (6) Full code status Current Visit: Yes Status: Acute Code(s): Z78.9 - OTHER SPECIFIED HEALTH STATUS SNOMED Code(s): 043483996 Status and Disposition: Inpatient under surgical services. Anticipate discharge when medically stable.
[2018-08-17] MEDS: TPN* 24 HR with Dextrose 50% Water* 500 ML, Amino Acid Infusion 10%* 850 ML, Sterile Wa... CENTR SCH ×13 (16:31)
[2018-08-18] MEDS: Metoprolol Tartrate IV* 1 MG/ML 5 ML VIAL IV SCH ×4 (04:25→21:58)
[2018-08-18] MEDS: Heparin VIAL(*) 5000 UNITS/ML VIAL (FIVE THOUSAND) SUBCUT SCH ×3 (06:48→21:58)
[2018-08-18] MEDS: Pantoprazole IV* 40 MG IV SCH (09:56)
[2018-08-18 10:53] LABS: ABS Basophils 0 10^3/ul (0-0.2); ABS Eosinophils 0.3 10^3/ul (0-0.6); ABS Lymphocytes 0.5 10^3/ul (1.0-4.8); ABS Monocytes 0.5 10^3/ul (0-0.8); ABS Neutrophils 7.9 10^3/ul (1.5-7.7); ABS Nucleated RBC 0 10^3/ul; Hematocrit 30 % (42-52); Hemoglobin 10.1 g/dl (14.0-18.0); Lymphocyte % 5.9 % (25-47); Mean Corpuscular HGB Conc 34 g/dl (31-36); Mean Corpuscular Hemoglobin 31 pg (27-31); Mean Corpuscular Volume 90 fL (80-94); Mean Platelet Volume 8.6 um3 (7.4-10.4); Nucleated Red Blood Cells % 0; Platelet Count 315 10^3/ul (150-450); Red Cell Distribution Width 16 % (10.5-15); White Blood Count 9.3 10^3/ul (3.5-10.8)
[2018-08-18] MEDS ORDERED: Morphine VIAL* 4 MG/ML VIAL (1 ml vial) IV PRN (12:21)
--- NOTE | 2018-08-18 12:22 | PN ---
Progress Note - Progress Note Date of Service: 08/18/18 Note: S: POD #4. No c/o re: N/V. Denies passage of flatus or stool. Some pain. Using CERTIFIED RESIDENTIAL MEDICATION AIDE infrequently (total of 7 mg MS/ 24h). O: Vital Signs - 8 hr 08/18/18 08/18/18 08/18/18 04:28 06:00 07:25 Temperature 97.9 F 98.6 F Pulse Rate 98 96 Respiratory 16 16 16 Rate Blood Pressure 157/98 155/80 (mmHg) O2 Sat by Pulse 98 97 97 Oximetry 08/18/18 08:45 Temperature Pulse Rate 92 Respiratory Rate Blood Pressure (mmHg) O2 Sat by Pulse Oximetry Intake and Output Last 24 Hours 08/16/18 08/17/18 08/18/18 08/19/18 06:59 06:59 06:59 06:59 Intake Total 3483 1719 3510 Output Total 1025 1605 1750 Balance 2458 114 1760 Intake: IV Fluids 1771 NS (0.9%) 1771 TPN/PPN 1712 1719 3510 Oral 0 0 0 Output: G Tube 175 105 200 [place] 850 1500 1550 Other: Estimated Void Medium Gen: appears comfortable; NAD Heart: reg Lungs: clear ant Abd: mildly distended/tympanitic; midline incision ok; +BS, but hypoactive; soft ; mild tenderness to palp Ext: no edema; SCDs on No labs today A: s/p ex lap, DULCE for SBO, improving P: will change CERTIFIED RESIDENTIAL MEDICATION AIDE to nurse administered MS prn; will discuss starting diet w/ Dr. Webster.
--- NOTE | 2018-08-18 14:12 | PN ---
Subjective Date of Service: 08/18/18 Interval History: Patient is feeling better. Patient has decreased abdominal pain and is starting to get a mild amount of his appetite back. Patient has not passed flatus or had a BM. Patient denies CP, SOB, F/C, dizziness, or other pain. Family History: Unchanged from Admission Social History: Unchanged from Admission Past Medical History: Unchanged from Admission Objective Active Medications: Acetaminophen (Tylenol Tab*) 650 mg PO Q6H PRN PRN Reason: TEMPERATURE > 101.5 Heparin Sodium (Porcine) (Heparin Vial(*)) 5,000 units SUBCUT Q8HR [facility] Last Admin: 08/18/18 06:48 Dose: 5,000 units Heparin Sodium (Porcine) (Heparin Flush Picc/Ml/Cvc(*)) 1 - 3 ml FLUSH 0600, 1800 [facility]; Protocol Last Admin: 08/18/18 06:10 Dose: Not Given Hydralazine HCl (Apresoline Iv*) 5 mg IV SLOW PU Q6H PRN PRN Reason: BLOOD PRESSURE Last Admin: 08/14/18 13:26 Dose: 5 mg Dextrose 500 ml/ Amino Acids 850 ml/ Sterile Water 150 ml/Fat Emulsion Intravenous 250 ml/ Sodium Chloride 25 meq/Sodium Acetate 25 meq/Potassium Chloride 40 meq/Potassium Phosphate 20 mmole/Calcium Gluconate 10 meq/Magnesium Sulfate 20 meq/Multivitamins 10 ml/ Trace Metals 1 ml/ Nutrition ( Parenteral) 1,832.8478 mls @ 76.369 mls/hr CENTR 1700 [facility] Stop: 08/19/18 16:59 Last Admin: 08/17/18 16:31 Dose: 76.369 mls/hr Metoprolol Tartrate (Lopressor Iv*) 5 mg IV Q6H [facility] Last Admin: 08/18/18 11:00 Dose: 5 mg Morphine Sulfate (Morphine Vial*) 1 mg IV Q3H PRN PRN Reason: PAIN Ondansetron HCl (Zofran Inj*) 4 mg IV Q4H PRN PRN Reason: NAUSEA/VOMITING Last Admin: 08/04/18 07:52 Dose: 4 mg Pantoprazole Sodium (Protonix Iv*) 40 mg IV DAILY [facility] Last Admin: 08/18/18 09:56 Dose: 40 mg Vital Signs - 8 hr 08/18/18 08/18/18 07:25 08:45 Temperature 98.6 F Pulse Rate 96 92 Respiratory 16 Rate Blood Pressure 155/80 (mmHg) O2 Sat by Pulse 97 Oximetry Oxygen Devices in Use Now: None Appearance: Patient is an 82yo male who appears stated age and is sitting in the bed in [facility]. Eyes: No Scleral Icterus, PERRLA Ears/Nose/Mouth/Throat: Clear Oropharnyx, Mucous Membranes Moist Neck: NL Appearance and Movements; NL JVP, Trachea Midline Respiratory: Symmetrical Chest Expansion and Respiratory Effort, Clear to Auscultation Cardiovascular: NL Sounds; No Murmurs; No JVD, RRR, No Edema Abdominal: No Hepatosplenomegaly, - - Hyperactive bowel sounds. Midline incision with cal and no signs of infection. G-tube in place Lymphatic: No Cervical Adenopathy Extremities: No Edema, No Clubbing, Cyanosis Skin: No Nodules or Sclerosis Neurological: Alert and Oriented x 3, NL Sensation, NL Muscle Strength and Tone , - - CN II-XII intact Result Diagrams: 08/18/18 09:51 08/17/18 04:55 Additional Lab and Data: . Microbiology and Other Data: . Diagnostic Imaging: Patient Name: LIZBETH SANCHES Medical Record#: [id number] Ordering Physician: Verito Stephens MD Acct.#: [id number] : 1935 Age: 82 Sex: M Location: SURGICAL STAY UNIT Exam Date: 08/09/18612 ADM Status: ADM IN Order Information: VL UPPER EXT VEIN DOPPLER LEFT Accession Number: [id number] CPT: 17612 Indication: Evaluate for left arm deep venous thrombosis. Duplex Doppler sonography of the left upper extremity deep venous system was performed. The internal jugular veins demonstrates normal phasic flow bilaterally. The subclavian vein demonstrates successful augmentation and normal phasic flow bilaterally. The left axillary vein and brachial vein appear patent. The left basilic vein appears patent and compressible. PICC line appears in the basilic vein. The left thalamus vein appears to be occluded in the forearm distal to the antecubital space. IMPRESSION: The cephalic vein appears to be thrombosed distal to the antecubital fossa. The PICC line appears to be in the left basilic vein. The remainder of the left upper extremity deep venous system is patent. Patient Name: LIZBETH SANCHES Medical Record#: [id number] Ordering Physician: Jair Beatty MD Acct.#: [id number] : 1935 Age: 82 Sex: M Location: SURGICAL STAY UNIT Exam Date: 08/08/18 1632 ADM Status: ADM IN Order Information: CHEST AP PORTABLE Accession Number: [id number] CPT: 03246 HISTORY: verify PICC placement COMPARISONS: Abdomen series dated August 07, 2018 VIEWS: 1: frontal AP view of the chest at 4:40 PM FINDINGS: LINES AND TUBES: A gastric tube is noted with the tip in the upper abdomen. The tip position is indeterminate with respect to the pylorus. A left-sided PICC line is noted with the tip overlying the superior vena cava. CARDIOMEDIASTINAL SILHOUETTE: The cardiomediastinal silhouette is normal for portable technique. PLEURA: The costophrenic angles are sharp. No pleural abnormalities are noted. LUNG PARENCHYMA: There is hyperinflation with emphysematous change. There is platelike atelectasis of the right lung base. ABDOMEN: Again noted are dilated loops of small bowel consistent with small bowel obstruction. BONES AND SOFT TISSUES: There is diffuse osteopenia. Generative changes are noted of the spine and right shoulder. IMPRESSION: 1. LINES AND TUBES ABOVE. 2. EMPHYSEMA. 3. SMALL BOWEL OBSTRUCTION. Patient Name: LIZBETH SANCHES Medical Record#: [id number] Ordering Physician: Jair Beatty MD Acct.#: [id number] : 1935 Age: 82 Sex: M Location: SURGICAL STAY UNIT Exam Date: 08/09/18 1500 ADM Status: ADM IN Order Information: CHEST AP PORTABLE Accession Number: [id number] CPT: 58081 Indication: Evaluate for PICC line placement. Single frontal view of the chest performed at 1527 hours was reviewed. Comparison is made with previous exam dated August 08, 2018. No mediastinal shift is noted. Heart is of normal size and configuration. Right basilar atelectasis with small right pleural effusion is noted improved since previous exam. Right-sided PICC line is in place with the tip in the superior vena cava.. IMPRESSION: RIGHT BASE ATELECTASIS WITH RIGHT PLEURAL EFFUSION. PICC LINE IS IN PLACE. EKG Data: . Assess/Plan/Problems-Billing Assessment: An 82 y/o male with PMH HTN, HLD, GERD and recent exploratory laparotomy with small bowel resection on 07/17/18, who was admitted with small bowel obstruction , likely secondary to adhesions who is now POD 3 after a DULCE and Gastrostomy. - Patient Problems (1) SBO (small bowel obstruction) Current Visit: Yes Status: Acute Code(s): K56.609 - UNSP INTESTNL OBST, UNSP TO PARTIAL VERSUS COMPLETE OBST SNOMED Code(s): 356578161 Comment: - POD #4 Gastrostomy Placement / Lysis of adhesions - Management per surgery - PICC line placed in RUE after thrombus in LUE. - TPN infusing, TPN panels as scheduled. - Encouraged ambulation and incentive spirometer - Appears euvolemic today, tachycardia improving. (2) Aortic stenosis Current Visit: Yes Status: Acute Code(s): I35.0 - NONRHEUMATIC AORTIC (VALVE ) STENOSIS SNOMED Code(s): 85113905 Comment: - Asymptomatic, moderate on ECHO 05/11/18. (3) Electrolyte abnormality Current Visit: Yes Status: Acute Code(s): E87.8 - OTH DISORDERS OF ELECTROLYTE AND FLUID BALANCE, NEC SNOMED Code(s): 624207688 Comment: - Slight hypophosphatemia, asymptomatic, Potassium, magnesium WNL. - Replace as needed. Continue to monitor per TPN protocol. (4) GERD (gastroesophageal reflux disease) Current Visit: Yes Status: Acute Code(s): K21.9 - GASTRO-ESOPHAGEAL REFLUX DISEASE WITHOUT ESOPHAGITIS SNOMED Code(s): 445415563 Comment: - Continue PPI coverage IV (5) HTN (hypertension) Current Visit: Yes Status: Acute Code(s): I10 - ESSENTIAL (PRIMARY) HYPERTENSION SNOMED Code(s): 56857560 Comment: - SBP 140-150's - stable - Hydralyzine prn, Scheduled Metroprolol IV. - Home meds on hold d/t NPO status (6) Full code status Current Visit: Yes Status: Acute Code(s): Z78.9 - OTHER SPECIFIED HEALTH STATUS SNOMED Code(s): 981012992 Status and Disposition: Inpatient under surgical services. Anticipate discharge when medically stable.
[2018-08-18] MEDS: TPN* 24 HR with Dextrose 50% Water* 500 ML, Amino Acid Infusion 10%* 850 ML, Sterile Wa... CENTR SCH ×13 (18:15)
[2018-08-19] MEDS: Metoprolol Tartrate IV* 1 MG/ML 5 ML VIAL IV SCH ×3 (04:40→20:52)
[2018-08-19] MEDS: Heparin VIAL(*) 5000 UNITS/ML VIAL (FIVE THOUSAND) SUBCUT SCH ×3 (05:29→23:07)
[2018-08-19 06:07] LABS: EGFR Non-African American 167.3 (>60)
[2018-08-19] MEDS: Pantoprazole IV* 40 MG IV SCH (10:59)
--- NOTE | 2018-08-19 12:41 | PN ---
Subjective Date of Service: 08/19/18 Interval History: Patient is feeling "rough" but is slightly better than yesterday. Pain in abdomen is the same in intensity and character. Patient is having a small amount of appetite and is not feeling nauseated with ice chip ingestion. Patient had a small BM in the AM and is having ongoing flatus. Patient is walking around and feels weak without focality. Patient denies CP, SOB, F/C, Dizziness, or other pain. Family History: Unchanged from Admission Social History: Unchanged from Admission Past Medical History: Unchanged from Admission Objective Active Medications: Acetaminophen (Tylenol Tab*) 650 mg PO Q6H PRN PRN Reason: TEMPERATURE > 101.5 Heparin Sodium (Porcine) (Heparin Vial(*)) 5,000 units SUBCUT Q8HR [facility] Last Admin: 08/19/18 05:29 Dose: 5,000 units Heparin Sodium (Porcine) (Heparin Flush Picc/Ml/Cvc(*)) 1 - 3 ml FLUSH 0600, 1800 [facility]; Protocol Last Admin: 08/19/18 05:32 Dose: Not Given Hydralazine HCl (Apresoline Iv*) 5 mg IV SLOW PU Q6H PRN PRN Reason: BLOOD PRESSURE Last Admin: 08/14/18 13:26 Dose: 5 mg Dextrose 500 ml/ Amino Acids 850 ml/ Sterile Water 150 ml/Fat Emulsion Intravenous 250 ml/ Sodium Chloride 25 meq/Sodium Acetate 25 meq/Potassium Chloride 40 meq/Potassium Phosphate 20 mmole/Calcium Gluconate 10 meq/Magnesium Sulfate 20 meq/Multivitamins 10 ml/ Trace Metals 1 ml/ Nutrition ( Parenteral) 1,[phone] mls @ 76.369 mls/hr [facility] 1700 [facility] Last Admin: 08/18/18 18:15 Dose: 76.369 mls/hr Metoprolol Tartrate (Lopressor Iv*) 5 mg IV Q6H [facility] Last Admin: 08/19/18 10:45 Dose: Not Given Morphine Sulfate (Morphine Vial*) 1 mg IV Q3H PRN PRN Reason: PAIN Last Admin: 08/19/18 11:00 Dose: 1 mg Ondansetron HCl (Zofran Inj*) 4 mg IV Q4H PRN PRN Reason: NAUSEA/VOMITING Last Admin: 08/04/18 07:52 Dose: 4 mg Pantoprazole Sodium (Protonix Iv*) 40 mg IV DAILY ERIN Last Admin: 08/19/18 10:59 Dose: 40 mg Vital Signs - 8 hr 08/19/18 08/19/18 08/19/18 08:19 10:40 11:00 Temperature 98.6 F Pulse Rate 50 54 Respiratory 16 16 Rate Blood Pressure 143/60 (mmHg) O2 Sat by Pulse 97 Oximetry 08/19/18 11:30 Temperature 98.5 F Pulse Rate 51 Respiratory 16 Rate Blood Pressure 151/64 (mmHg) O2 Sat by Pulse 97 Oximetry Oxygen Devices in Use Now: None Appearance: Elaine is an 82yo male who appears stated age and is sitting in the bed in NAD. Eyes: No Scleral Icterus, PERRLA Ears/Nose/Mouth/Throat: NL Teeth, Lips, Gums, Clear Oropharnyx, Mucous Membranes Moist Neck: NL Appearance and Movements; NL JVP, Trachea Midline Respiratory: Symmetrical Chest Expansion and Respiratory Effort, Clear to Auscultation Cardiovascular: NL Sounds; No Murmurs; No JVD, RRR, No Edema Abdominal: No Hepatosplenomegaly, - - Tenderness diffusely. Surgical incision without signs of infection. Lymphatic: No Cervical Adenopathy Extremities: No Edema, No Clubbing, Cyanosis Skin: No Nodules or Sclerosis Neurological: Alert and Oriented x 3, NL Sensation, NL Muscle Strength and Tone , - - CN II-XII intact. Result Diagrams: 08/18/18 09:51 08/19/18 05:30 Additional Lab and Data: . Microbiology and Other Data: . Diagnostic Imaging: Patient Name: LIZBETH SANCHES Medical Record#: [id number] Ordering Physician: Verito Stephens MD Acct.#: [id number] : 1935 Age: 82 Sex: M Location: SURGICAL STAY UNIT Exam Date: 08/09/18612 ADM Status: ADM IN Order Information: VL UPPER EXT VEIN DOPPLER LEFT Accession Number: [id number] CPT: 42084 Indication: Evaluate for left arm deep venous thrombosis. Duplex Doppler sonography of the left upper extremity deep venous system was performed. The internal jugular veins demonstrates normal phasic flow bilaterally. The subclavian vein demonstrates successful augmentation and normal phasic flow bilaterally. The left axillary vein and brachial vein appear patent. The left basilic vein appears patent and compressible. PICC line appears in the basilic vein. The left thalamus vein appears to be occluded in the forearm distal to the antecubital space. IMPRESSION: The cephalic vein appears to be thrombosed distal to the antecubital fossa. The PICC line appears to be in the left basilic vein. The remainder of the left upper extremity deep venous system is patent. Patient Name: LIZBETH SANCHES Medical Record#: [id number] Ordering Physician: Jair Beatty MD Acct.#: [id number] : 1935 Age: 82 Sex: M Location: SURGICAL STAY UNIT Exam Date: 08/08/18 1632 ADM Status: ADM IN Order Information: CHEST AP PORTABLE Accession Number: [id number] CPT: 29235 HISTORY: verify PICC placement COMPARISONS: Abdomen series dated August 07, 2018 VIEWS: 1: frontal AP view of the chest at 4:40 PM FINDINGS: LINES AND TUBES: A gastric tube is noted with the tip in the upper abdomen. The tip position is indeterminate with respect to the pylorus. A left-sided PICC line is noted with the tip overlying the superior vena cava. CARDIOMEDIASTINAL SILHOUETTE: The cardiomediastinal silhouette is normal for portable technique. PLEURA: The costophrenic angles are sharp. No pleural abnormalities are noted. LUNG PARENCHYMA: There is hyperinflation with emphysematous change. There is platelike atelectasis of the right lung base. ABDOMEN: Again noted are dilated loops of small bowel consistent with small bowel obstruction. BONES AND SOFT TISSUES: There is diffuse osteopenia. Generative changes are noted of the spine and right shoulder. IMPRESSION: 1. LINES AND TUBES ABOVE. 2. EMPHYSEMA. 3. SMALL BOWEL OBSTRUCTION. Patient Name: LIZBETH SANCHES Medical Record#: [id number] Ordering Physician: Jair Beatty MD Acct.#: [id number] : 1935 Age: 82 Sex: M Location: SURGICAL STAY UNIT Exam Date: 08/09/18 1500 ADM Status: ADM IN Order Information: CHEST AP PORTABLE Accession Number: [id number] CPT: 21861 Indication: Evaluate for PICC line placement. Single frontal view of the chest performed at 1527 hours was reviewed. Comparison is made with previous exam dated August 08, 2018. No mediastinal shift is noted. Heart is of normal size and configuration. Right basilar atelectasis with small right pleural effusion is noted improved since previous exam. Right-sided PICC line is in place with the tip in the superior vena cava.. IMPRESSION: RIGHT BASE ATELECTASIS WITH RIGHT PLEURAL EFFUSION. PICC LINE IS IN PLACE. EKG Data: . Assess/Plan/Problems-Billing Assessment: An 82 y/o male with PMH HTN, HLD, GERD and recent exploratory laparotomy with small bowel resection on 07/17/18, who was admitted with small bowel obstruction , likely secondary to adhesions who is now POD 3 after a DULCE and Gastrostomy. - Patient Problems (1) SBO (small bowel obstruction) Current Visit: Yes Status: Acute Code(s): K56.609 - UNSP INTESTNL OBST, UNSP TO PARTIAL VERSUS COMPLETE OBST SNOMED Code(s): 163014265 Comment: - POD #5 Gastrostomy Placement / Lysis of adhesions - Management per surgery - PICC line placed in RUE after thrombus in LUE. - TPN infusing, TPN panels as scheduled. Electrolytes good today. - Encouraged ambulation and incentive spirometer - Advance diet per surgery - Appears euvolemic today (2) Aortic stenosis Current Visit: Yes Status: Acute Code(s): I35.0 - NONRHEUMATIC AORTIC (VALVE ) STENOSIS SNOMED Code(s): 00603189 Comment: - Asymptomatic, moderate on ECHO 05/11/18. (3) Electrolyte abnormality Current Visit: Yes Status: Acute Code(s): E87.8 - OTH DISORDERS OF ELECTROLYTE AND FLUID BALANCE, NEC SNOMED Code(s): 124839402 Comment: - Potassium, Magnesium, Phosphorus WNL - Replace as needed. Continue to monitor per TPN protocol. (4) GERD (gastroesophageal reflux disease) Current Visit: Yes Status: Acute Code(s): K21.9 - GASTRO-ESOPHAGEAL REFLUX DISEASE WITHOUT ESOPHAGITIS SNOMED Code(s): 579767267 Comment: - Continue PPI coverage IV (5) HTN (hypertension) Current Visit: Yes Status: Acute Code(s): I10 - ESSENTIAL (PRIMARY) HYPERTENSION SNOMED Code(s): 53741072 Comment: - SBP 140-150's - stable - Hydralyzine prn, Scheduled Metroprolol IV. - Home meds on hold d/t NPO status, resume when able (6) Full code status Current Visit: Yes Status: Acute Code(s): Z78.9 - OTHER SPECIFIED HEALTH STATUS SNOMED Code(s): 628428076 Status and Disposition: Inpatient under surgical services. Anticipate discharge when medically stable. We will sign off at this time. Thank you for the consult. Please feel free to call with any questions.
--- NOTE | 2018-08-19 13:50 | PN ---
Progress Note - Progress Note Date of Service: 08/19/18 SOAP: Subjective: Pt seen and examined. Feeling better today. positive flatus x2 No nausea. some appetite. OOB Objective: Temp Pulse Resp BP Pulse Ox 98.5 F 51 16 151/64 97 08/19/18 11:30 08/19/18 11:30 08/19/18 11:30 08/19/18 11:30 08/19/18 11:30 Intake & Output 08/18/18 08/19/18 08/19/18 22:59 06:59 14:59 Intake Total 1210 0 Output Total 280 495 Balance 930 -495 lungs clear at apices, poor effort, no rales abdo: soft/ ND/ incisional tenderness mild redness at gastrostomy site staple line intact, no redness ext wnl Assessment: POD 5 ex lap, gwen, gastrostomy Plan: improving ileus. cont TPN clamp G tube ice chips SACMA to cover me this weekend
[2018-08-19] MEDS: TPN* 24 HR with Dextrose 50% Water* 500 ML, Amino Acid Infusion 10%* 850 ML, Sterile Wa... CENTR SCH ×13 (18:09)
[2018-08-19] MEDS: Finasteride TAB* 5 MG PO SCH (18:09)
[2018-08-20] MEDS: Metoprolol Tartrate IV* 1 MG/ML 5 ML VIAL IV SCH ×3 (05:19→22:18)
[2018-08-20] MEDS: Heparin VIAL(*) 5000 UNITS/ML VIAL (FIVE THOUSAND) SUBCUT SCH ×3 (05:19→22:23)
[2018-08-20] MEDS: Pantoprazole IV* 40 MG IV SCH (09:20)
[2018-08-20] MEDS: Triamterene/HCTZ 37.5-25 MG* CAP PO SCH ×2 (09:21→09:25)
[2018-08-20] MEDS: Tamsulosin CAP* 0.4 MG PO SCH ×2 (09:21→09:25)
--- NOTE | 2018-08-20 11:43 | PN ---
Progress Note - Progress Note Date of Service: 08/20/18 SOAP: Subjective: Without complaint today Passing a little flatus Was out of bed quite a bit this morning No N/V with GTube clamped Objective: Temp Pulse Resp BP Pulse Ox 98.2 F 90 16 149/80 98 08/20/18 07:18 08/20/18 07:18 08/20/18 08:00 08/20/18 07:18 08/20/18 08:00 Intake & Output 08/18/18 08/19/18 08/20/18 08/21/18 06:59 06:59 06:59 05:59 Intake Total 3510 1210 1801 Output Total 1750 1440 875 340 Balance 1760 -230 926 -340 Intake: IV Fluids 1210 NS (0.9%) 1210 TPN/PPN 3510 1751 Oral 0 0 50 Output: G Tube 200 175 Urine 690 875 340 [place] 1550 575 Other: Estimated Void Medium # Bowel Movements 0 0 PEX: Comfortable Lungs are clear Abd is soft and slightly distended. Bowel sounds present but hypoactive, not high pitched. Incision clean and dry. GTube in place Ext without edema No labs today Assessment: S/p ex lap lysis of adhesions for SBO-Gtube clamped yesterday Ileus Malnutrition Plan: Sips of clears today as tolerated TPN Increase activity
[2018-08-20] MEDS: TPN* 24 HR with Dextrose 50% Water* 500 ML, Amino Acid Infusion 10%* 850 ML, Sterile Wa... CENTR SCH ×13 (17:19)
[2018-08-20] MEDS: Finasteride TAB* 5 MG PO SCH (17:20)
[2018-08-21] MEDS: Metoprolol Tartrate IV* 1 MG/ML 5 ML VIAL IV SCH ×3 (06:00→20:56)
[2018-08-21] MEDS: Heparin VIAL(*) 5000 UNITS/ML VIAL (FIVE THOUSAND) SUBCUT SCH ×3 (06:02→21:13)
[2018-08-21] MEDS: Pantoprazole IV* 40 MG IV SCH (09:42)
[2018-08-21] MEDS: Triamterene/HCTZ 37.5-25 MG* CAP PO SCH (09:42)
[2018-08-21] MEDS: Tamsulosin CAP* 0.4 MG PO SCH (09:43)
--- NOTE | 2018-08-21 13:41 | PN ---
Progress Note - Progress Note Date of Service: 08/21/18 SOAP: Subjective: Doing well-tolerating liquids Passing gas and had some small loose stools Ambulated in the halls Objective: Temp Pulse Resp BP Pulse Ox 98.0 F 47 16 141/55 98 08/21/18 11:06 08/21/18 11:06 08/21/18 11:06 08/21/18 11:06 08/21/18 11:06 Intake & Output 08/19/18 08/20/18 08/21/18 08/22/18 07:59 07:59 06:59 06:59 Intake Total 200 Output Total 600 Balance -400 Intake: IV Fluids NS (0.9%) TPN TPN/PPN Oral 200 Output: G Tube Urine 600 [place] Other: # Bowel Movements Estimated Stool Amount PEX: Comfortable Lungs are clear Abd is soft and slightly distended. Bowel sounds are present, hyperactive but normal pitched. Incision CDI Assessment: S/P ex lap SBO Ieus resolving Plan: Full liquids TPN until adequate po Increase activity
[2018-08-21] MEDS: TPN* 24 HR with Dextrose 50% Water* 500 ML, Amino Acid Infusion 10%* 850 ML, Sterile Wa... CENTR SCH ×13 (17:18)
[2018-08-21] MEDS: Finasteride TAB* 5 MG PO SCH (17:19)
[2018-08-22] MEDS: Metoprolol Tartrate IV* 1 MG/ML 5 ML VIAL IV SCH ×3 (05:28→22:00)
[2018-08-22] MEDS: Heparin VIAL(*) 5000 UNITS/ML VIAL (FIVE THOUSAND) SUBCUT SCH ×3 (05:28→22:00)
--- NOTE | 2018-08-22 08:22 | PN ---
Progress Note - Progress Note Date of Service: 08/22/18 SOAP: Subjective: Pt seen and examined. Feeling somewhat better. OOB w/ assistance. positive flatus. small BM some burping. Objective: Temp Pulse Resp BP Pulse Ox 98.1 F 94 16 129/68 97 08/22/18 03:29 08/22/18 03:29 08/22/18 03:29 08/22/18 03:29 08/22/18 03:29 Intake & Output 08/21/18 08/22/18 08/22/18 22:59 06:59 14:59 Intake Total 1955 0 Output Total 750 810 200 Balance 1205 -810 -200 a and ox3, nad abdo: soft/ mild distension/ tender, reducible RIH\ staple line intact w/o redness G tube clamped no calf tenderness Assessment: POD 8 ex lap, DULCE, HD stable, improving ileus Plan: d/c tpn labs in am full liquids for one more day
[2018-08-22] MEDS: Tamsulosin CAP* 0.4 MG PO SCH (09:36)
[2018-08-22] MEDS: Triamterene/HCTZ 37.5-25 MG* CAP PO SCH (09:36)
[2018-08-22] MEDS: Omeprazole CAP* 20 MG PO SCH (09:36)
[2018-08-22] MEDS: Finasteride TAB* 5 MG PO SCH (17:23)
[2018-08-23] MEDS: Metoprolol Tartrate IV* 1 MG/ML 5 ML VIAL IV SCH ×3 (06:06→21:12)
[2018-08-23] MEDS: Heparin VIAL(*) 5000 UNITS/ML VIAL (FIVE THOUSAND) SUBCUT SCH ×3 (06:25→21:22)
[2018-08-23 06:40] LABS: ABS Basophils 0 10^3/ul (0-0.2); ABS Eosinophils 0.2 10^3/ul (0-0.6); ABS Monocytes 0.5 10^3/ul (0-0.8); ABS Neutrophils 6.3 10^3/ul (1.5-7.7); ABS Nucleated RBC 0 10^3/ul; Eosinophil % 2.1 % (0-6); Hematocrit 27 % (42-52); Hemoglobin 9.3 g/dl (14.0-18.0); Lymphocyte % 11.9 % (25-47); Mean Corpuscular HGB Conc 34 g/dl (31-36); Mean Corpuscular Hemoglobin 30 pg (27-31); Mean Corpuscular Volume 89 fL (80-94); Mean Platelet Volume 7.3 fL (7.4-10.4); Nucleated Red Blood Cells % 0; Platelet Count 392 10^3/ul (150-450); Red Blood Count 3.07 10^6/ul (4.00-5.40); Red Cell Distribution Width 16 % (10.5-15)
[2018-08-23 07:05] LABS: EGFR Non-African American 129.3 (>60)
[2018-08-23] MEDS: Omeprazole CAP* 20 MG PO SCH (09:06)
[2018-08-23] MEDS: Tamsulosin CAP* 0.4 MG PO SCH (09:06)
[2018-08-23] MEDS: Triamterene/HCTZ 37.5-25 MG* CAP PO SCH (09:06)
[2018-08-23] MEDS: Finasteride TAB* 5 MG PO SCH (18:01)
--- NOTE | 2018-08-23 19:00 | PN ---
Progress Note - Progress Note Date of Service: 08/23/18 Note: S: Patient currently eating supper (soft diet). Apparently having BMs (though not today) and passing flatus). Denies abd pain. O: Vital Signs - 8 hr 08/23/18 08/23/18 08/23/18 11:05 15:16 16:00 Temperature 98.8 F 99.4 F Pulse Rate 49 49 Respiratory 16 16 Rate Blood Pressure 123/52 131/51 (mmHg) O2 Sat by Pulse 97 98 98 Oximetry Intake and Output Last 24 Hours 08/21/18 08/22/18 08/23/18 08/24/18 06:59 06:59 06:59 06:59 Intake Total 2255 1220 120 Output Total 2280 1525 945 Balance -25 -305 -825 Intake: IV Fluids 1855 TPN 1855 Oral 400 1220 120 Output: G Tube Urine 2280 1525 945 Other: # Bowel Movements 1 Estimated Stool Amount Large Gen: appears comfortable; NAD Heart: reg Lungs: clear ant Abd: midline incision w/ min staple erythema. Abd nontender with the exception of some tenderness over his Right inguinal hernia. It did not easily reduce and I did not persist. A: s/p ex lap; DULCE; postop ileus, resolved P: doing well; d/c plan?
[2018-08-23] MEDS: Acetaminophen TAB* 325 MG PO PRN (21:26)
[2018-08-24] MEDS: Metoprolol Tartrate IV* 1 MG/ML 5 ML VIAL IV SCH ×3 (05:10→22:44)
[2018-08-24] MEDS: Heparin VIAL(*) 5000 UNITS/ML VIAL (FIVE THOUSAND) SUBCUT SCH ×3 (06:09→21:41)
[2018-08-24] MEDS: Triamterene/HCTZ 37.5-25 MG* CAP PO SCH (09:26)
[2018-08-24] MEDS: Tamsulosin CAP* 0.4 MG PO SCH (09:26)
[2018-08-24] MEDS: Omeprazole CAP* 20 MG PO SCH (09:26)
--- NOTE | 2018-08-24 14:41 | PN ---
Progress Note - Progress Note Date of Service: 08/24/18 SOAP: Subjective: Pt seen and examined. Feeling well. Had a large BM. No nausea. Good appetite Objective: af vss neg I/Os lungs clear abdo: soft/ ND/ NT staple line intact gatrostomy site intact no calf tenderness Assessment: POD 10 ex lap, gwen Plan: stable, tolerating diet d/c home w/i 24 hrs with clamped gastrostomy to be removed at later date.
[2018-08-24] MEDS: Finasteride TAB* 5 MG PO SCH (19:10)
[2018-08-24] MEDS: Acetaminophen TAB* 325 MG PO PRN (19:38)
[2018-08-25] MEDS: Metoprolol Tartrate IV* 1 MG/ML 5 ML VIAL IV SCH (04:52)
[2018-08-25] MEDS: Heparin VIAL(*) 5000 UNITS/ML VIAL (FIVE THOUSAND) SUBCUT SCH (05:45)
[2018-08-25] MEDS: Omeprazole CAP* 20 MG PO SCH (10:16)
[2018-08-25] MEDS: Triamterene/HCTZ 37.5-25 MG* CAP PO SCH (10:16)
[2018-08-25] MEDS: Tamsulosin CAP* 0.4 MG PO SCH (10:16)
[2018-08-25 12:00] VITALS: BP 124/55
== END 2018-08-25 12:30 | disposition home or self-care (01) | DRG 327 ==
LOC: ED 09:57 → MED 13:39 → OBSVTOIN 08-04 16:15 → SSU 08-05 13:20
PROVIDERS: ADMIT Surgery; ATTEND Surgery
PROC: 3E0336Z Introduction of Nutritional Substance into Peripheral Vein, Percutaneous Approach (ICD-10-PCS; 2018-08-08)
PROC: 02HV33Z Insertion of Infusion Device into Superior Vena Cava, Percutaneous Approach (ICD-10-PCS; 2018-08-09)
PROC: 0D9780Z Drainage of Stomach, Pylorus with Drainage Device, Via Natural or Artificial Opening Endoscopic (ICD-10-PCS; 2018-08-12)
PROC: 0DNA0ZZ Release Jejunum, Open Approach (ICD-10-PCS; 2018-08-14)
PROC: 0DN80ZZ Release Small Intestine, Open Approach (ICD-10-PCS; 2018-08-14)
PROC: 0D9600Z Drainage of Stomach with Drainage Device, Open Approach (ICD-10-PCS; principal; 2018-08-14 09:30)
DX: K91.31 Postprocedural partial intestinal obstruction (principal); I82.612 Acute embolism and thrombosis of superficial veins of left upper extremity; E46 Unspecified protein-calorie malnutrition; K56.51 Intestinal adhesions [bands], with partial obstruction; E11.9 Type 2 diabetes mellitus without complications; I25.10 Atherosclerotic heart disease of native coronary artery without angina pectoris; I10 Essential (primary) hypertension; M19.90 Unspecified osteoarthritis, unspecified site; N40.0 Benign prostatic hyperplasia without lower urinary tract symptoms; E78.5 Hyperlipidemia, unspecified; K21.0 Gastro-esophageal reflux disease with esophagitis; I35.0 Nonrheumatic aortic (valve) stenosis; D64.9 Anemia, unspecified; I27.20 Pulmonary hypertension, unspecified; K40.90 Unilateral inguinal hernia, without obstruction or gangrene, not specified as recurrent; E78.9 Disorder of lipoprotein metabolism, unspecified; Z68.21 Body mass index [BMI] 21.0-21.9, adult; K94.20 Gastrostomy complication, unspecified; Y83.3 Surgical operation with formation of external stoma as the cause of abnormal reaction of the patient, or of later complication, without mention of misadventure at the time of the procedure; Y73.3 Surgical instruments, materials and gastroenterology and urology devices (including sutures) associated with adverse incidents; R00.0 Tachycardia, unspecified; E86.0 Dehydration; E83.39 Other disorders of phosphorus metabolism; Z90.49 Acquired absence of other specified parts of digestive tract; Z87.891 Personal history of nicotine dependence; Z81.8 Family history of other mental and behavioral disorders; Y92.9 Unspecified place or not applicable
CPT/HCPCS: 36415; 71045; 74018; 74019; 74177; 80048; 80053; 82140; 82150; 82465; 82550; 83605; 83690; 83735; 83880; 84100; 84134; 84478; 84484; 85025; 85610; 85730; 86140; 93005; 99156; 99157; 99284; A9270-GY; C1751; G0378; J0330; J0360; J1100; J1170; J1644; J2250; J2270; J2405; J2704; J3010; J3475; J3480; J3490; Q9967

== ENCOUNTER 2019-01-10 08:51 | Day surgery (SDC) | payer MEDICARE ==
[2019-01-10] MEDS ORDERED: fentaNYL* 50 MCG/ML 2 ML VIAL (100 MCG VIAL) ONE (10:35)
[2019-01-10] MEDS ORDERED: Midazolam* 1 MG/ML 2 ML VIAL (2 MG) ONE (10:35)
--- NOTE | 2019-01-10 11:50 | OP ---
DATE OF OPERATION/DATE OF DICTATION: 01/10/2019 - [facility] DATE OF : 1935. SURGEON: Dr. Ricky Fabian. PRODUCT TESTER FIBERGLASS: None. ANESTHESIA: Topical with intravenous sedation. PRE-OP DIAGNOSIS: Cataract, left eye. POST-OP DIAGNOSIS: Cataract, left eye. OPERATIVE PROCEDURE: Phacoemulsification and cataract extraction with posterior chamber intraocular lens implant, left eye. COMPLICATIONS: None. BLOOD LOSS: None. OPERATIVE FINDINGS: The patient was brought to the operating room and received a small amount of intravenous sedation. A drop of Tetracaine was placed in his left eye. He was prepped and draped in the usual sterile fashion for ophthalmic surgery and attention was directed to the left eye where a speculum was placed. A paracentesis was created at the 5 o'clock position and 0.1 cc of 1 percent preservative-free Lidocaine was injected into the anterior chamber followed by DisCoVisc. The eye was digitally stabilized while a 2.75 mm keratome was used to create a triplanar clear corneal incision at the 3 o'clock position. A continuous curvilinear capsulorrhexis was created with a cystotome and Utrata forceps. BSS on a cannula was used to hydrodissect the lens from the capsule. Phacoemulsification was performed in a cviaiw-yye-sszbxlb technique to create four fragments which were removed. Residual cortical material was removed with irrigation and aspiration. DisCoVisc was used to inflate the capsular bag and an AUOOTO 19.0 diopter lens was folded and inserted into the capsular bag. DisCoVisc was removed using irrigation and aspiration. BSS on a cannula was used to hydrate the corneal stroma and seal the wound. At the end of the case the pupil was round and the lens was centered. The eye was of normal pressure and the wound was water tight. The speculum was removed and topical Maxitrol ointment was placed on the surface of the eye. The eye was closed, patched and shielded and the patient was sent to the recovery room in stable condition with post operative instructions and follow-up appointment given. [id number]/CPS #: [id number] MTDD
[2019-01-10 12:25] VITALS: BP 125/75
[2019-01-10] MEDS ORDERED: Tropicamide 1% OPTH.SOL* BTL ONE (14:53)
[2019-01-10] MEDS ORDERED: Tetracaine 0.5% OPTH.SOL 4 ML* 1 DROP BTL ONE (14:53)
[2019-01-10] MEDS ORDERED: Ketorolac 0.5% OPHTH (NF) 0.5 % 5 ML BTL ONE (14:53)
[2019-01-10] MEDS ORDERED: Phenylephrine OPHTH SOL 2.5%* 2 ML ONE (14:53)
[2019-01-10] MEDS ORDERED: Cyclopentolate 1% OPTH.SOL* 2 ML BTL ONE (14:53)
[2019-01-10] MEDS ORDERED: Lidocaine 1%* 5 ML VIAL ONE (14:53)
[2019-01-10] MEDS ORDERED: Neomycin/Polymy/Dex OPHTH.OIN* 3.5 GM ONE (14:53)
== END 2019-01-10 11:49 | disposition home or self-care (01) ==
LOC: OREAST 08:51
PROVIDERS: ATTEND Ophthalmology
DX: H25.12 Age-related nuclear cataract, left eye (principal); Z95.0 Presence of cardiac pacemaker; I44.30 Unspecified atrioventricular block; I10 Essential (primary) hypertension
CPT/HCPCS: A9270-GY; J2250; J3010; V2632

== ENCOUNTER 2019-01-17 09:18 | Day surgery (SDC) | payer MEDICARE ==
[~2019-01-17 09:18] MED LIST changes: +Acetaminophen TAB* 325 MG PO PRN; -Buffered Lidocaine 0.9% SYRIN* 5 ML/SYR SYRINGE INTRADERM ONE; +Buffered Lidocaine 1% SYRIN* 1 ML/SYRINGE INTRADERM ONE; +Cyclopentolate 1% OPTH.SOL* 2 ML BTL ONE; +Ketorolac 0.5% OPHTH (NF) 0.5 % 5 ML BTL ONE; +Lidocaine 1%* 5 ML VIAL ONE; +Neomycin/Polymy/Dex OPHTH.OIN* 3.5 GM ONE; +Phenylephrine OPHTH SOL 2.5%* 2 ML ONE; +Tetracaine 0.5% OPTH.SOL 4 ML* 1 DROP BTL ONE; +Tropicamide 1% OPTH.SOL* BTL ONE
[2019-01-17] MEDS ORDERED: fentaNYL* 50 MCG/ML 2 ML VIAL (100 MCG VIAL) ONE (10:51)
[2019-01-17] MEDS ORDERED: Midazolam* 1 MG/ML 2 ML VIAL (2 MG) ONE (10:51)
--- NOTE | 2019-01-17 11:37 | OP ---
DATE OF OPERATION: 01/17/19 - [facility] DATE OF : 37 SURGEON: Dr. Ricky Fabian. SUPERVISOR [employer]OMICS: None. ANESTHESIA: Topical with intravenous sedation. PRE-OP DIAGNOSIS: Cataract, right eye. POST-OP DIAGNOSIS: Cataract, right eye. OPERATIVE PROCEDURE: Phacoemulsification and cataract extraction with posterior chamber intraocular lens implant, right eye. COMPLICATIONS: None. BLOOD LOSS: None. DESCRIPTION OF PROCEDURE: The patient was brought to the operating room and received a small amount of intravenous sedation. A drop of Tetracaine was placed in the right eye. The patient was prepped and draped in the usual sterile fashion for ophthalmic surgery and attention was directed to the right eye where a speculum was placed. A paracentesis was created at the 11 o'clock position and 0.1 cc of 1 percent preservative-free Lidocaine was injected into the anterior chamber followed by DisCoVisc. The eye was digitally stabilized while a 2.75 mm keratome was used to create a triplanar clear corneal incision at the 9 o'clock position. A continuous curvilinear capsulorrhexis was created with a cystotome and Utrata forceps. BSS on a cannula was used to hydrodissect the lens from the capsule. Phacoemulsification was performed in a abivrp-puj-xqiozze technique to create four fragments which were removed. Residual cortical material was removed with irrigation and aspiration. DisCoVisc was used to inflate the capsular bag and an AU00T0 18.5 diopter lens was folded and inserted into the capsular bag. DisCoVisc was removed using irrigation and aspiration. BSS on a cannula was used to hydrate the corneal stroma and seal the wound. At the end of the case the pupil was round and the lens was centered. The eye was of normal pressure and the wound was water tight. The speculum was removed and topical Maxitrol ointment was placed on the surface of the eye. The eye was closed, patched and shielded and the patient was sent to the recovery room in stable condition with post operative instructions and follow-up appointment given. [id number]/CPS #: [id number] MADALYN
[2019-01-17 11:41] VITALS: BP 119/72
== END 2019-01-17 11:30 | disposition home or self-care (01) ==
LOC: OREAST 09:18
PROVIDERS: ATTEND Ophthalmology
DX: H25.041 Posterior subcapsular polar age-related cataract, right eye (principal); I10 Essential (primary) hypertension; Z95.0 Presence of cardiac pacemaker; I44.1 Atrioventricular block, second degree; I08.3 Combined rheumatic disorders of mitral, aortic and tricuspid valves; D48.5 Neoplasm of uncertain behavior of skin
CPT/HCPCS: A9270-GY; J2250; J3010; V2632